=== PATIENT | female | born 1960 | race Caucasian/White ===

== ENCOUNTER 2019-04-16 16:29 | Outpatient (CLI) | payer OTHER, SELFPAY ==
--- NOTE | ~2019-04-16 | MM_ITS ---
EXAMINATION: MM screening [facility] BI w dev HISTORY: Screening mammogram, family history of breast cancer in her mother. TECHNIQUE: Craniocaudal and mediolateral oblique 3-D tomosynthesis images were obtained and synthetic 2-D images were generated. CAD analysis was submitted and interpreted. COMPARISON: 03/30/2018, 03/02/2017, 02/25/2016 BREAST PARENCHYMAL COMPOSITION: There are scattered areas of fibroglandular density. FINDINGS: There is stable focal asymmetry in the middle third of the upper left breast. There is no e vidence of suspicious mass, calcification, or architectural distortion to suggest malignancy in eithe r breast. There has been no suspicious interval change. IMPRESSION: 1. No mammographic evidence of malignancy. 2. Recommend routine screening mammography in one year. BI-RADS Category 2: Benign finding(s). Reviewed, dictated and finalized at location A. EL MANAGER
== END 2019-04-16 16:30 | disposition home or self-care (01) ==
LOC: ANHIMG 16:30
PROVIDERS: Visit Provider Obstetrics & Gynecology
DX: Z12.31 Encounter for screening mammogram for malignant neoplasm of breast (principal)
CPT/HCPCS: 77063; 77067

== ENCOUNTER 2019-06-11 08:24 | Outpatient (CLI) | payer OTHER, SELFPAY ==
[2019-06-11 08:50] LABS: Alanine Aminotransferase 16 U/L (4-35); Alkaline Phosphatase 62 U/L (38-126); Aspartate Amino Transferase 28 U/L (14-36); Bilirubin,Total 0.4 mg/dL (0.2-1.3); Blood Urea Nitrogen 13 mg/dL (7-17); Calcium 9.4 mg/dL (8.4-10.2); Carbon Dioxide 30 mmol/L (22-30); Chloride 106 mmol/L (98-107); Estimated Glomerular Filt Rate 51; Glucose 93 mg/dL (65-105); Potassium 4.2 mmol/L (3.4-5.0); Sodium 139 mmol/L (137-145)
== END 2019-06-11 08:25 | disposition home or self-care (01) ==
PROVIDERS: PCP Internal Medicine; Visit Provider Internal Medicine
DX: Z79.899 Other long term (current) drug therapy (principal)
CPT/HCPCS: 36415; 80053

== ENCOUNTER 2019-07-30 07:11 | Outpatient (CLI) | payer OTHER, SELFPAY ==
[2019-07-30 08:24] LABS: Free T4 Free Thyroxine 1.27 ng/mL (0.78-2.19)
[2019-08-01 04:56] LABS: Triiodothyronine T3 Free 2.9 pg/mL (2.3-4.2)
== END 2019-07-30 07:12 | disposition home or self-care (01) ==
PROVIDERS: Visit Provider Internal Medicine Endocrinology, Diabetes & Metabolism
DX: E03.9 Hypothyroidism, unspecified (principal)
CPT/HCPCS: 36415; 84439; 84443; 84481

== ENCOUNTER 2019-09-07 08:21 | Outpatient (CLI) | payer OTHER, SELFPAY ==
--- NOTE | ~2019-09-07 | XR_ITS ---
XR hip RT min 2V 09/07/2019 08:39 Indication: Right hip pain Procedure: 2 views right hip Comparison: 05/14/2018 Findings: There is persistent mild osteoarthritis of the right hip. No fracture or traumatic malalign ment. Sacral foramen are symmetric. Visualized pelvic structures are unremarkable. There is a transit ional L5 vertebra. Impression: 1: No acute bone or joint abnormality. 2: Mild osteoarthritis of the right hip. Reviewed, dictated and finalized at location A. Impression: 1: No acute bone or joint abnormality. 2: Mild osteoarthritis of the right hip.
== END 2019-09-07 08:22 | disposition home or self-care (01) ==
DX: M25.551 Pain in right hip (principal); M16.11 Unilateral primary osteoarthritis, right hip
CPT/HCPCS: 73502

== ENCOUNTER 2019-09-26 06:50 | Outpatient (CLI) | payer OTHER, SELFPAY ==
[2019-09-26 07:30] LABS: Hematocrit 36.8 % (37.0-47.0); Mean Corpuscular HGB Conc 32.6 g/dl (32-36); Mean Corpuscular Hemoglobin 24.6 pg (26-34); Mean Corpuscular Volume 75.4 fl (80-100); Mean Platelet Volume 10.4 fl (7.4-10.4); Platelet Count Result 251 k/mm3 (150-375); Red Blood Count 4.88 M/mm3 (4.2-5.4); Red Cell Distribution Width 14.7 % (11.5-14.5); White Blood Count 5.7 K/mm3 (4.5-10.0)
[2019-09-26 07:48] LABS: Alanine Aminotransferase 17 U/L (4-35); Albumin Level 4.2 g/dL (3.5-5.1); Alkaline Phosphatase 57 U/L (38-126); Aspartate Amino Transferase 30 U/L (14-36); Bilirubin,Total 0.2 mg/dL (0.2-1.3); Blood Urea Nitrogen 14 mg/dL (7-17); CRP 0.9 mg/dL (<1.0); Carbon Dioxide 25 mmol/L (22-30); Chloride 107 mmol/L (98-107); Estimated Glomerular Filt Rate 46; Glucose 97 mg/dL (65-105); Potassium 4.3 mmol/L (3.4-5.0); Sodium 138 mmol/L (137-145)
[2019-09-26 07:53] LABS: Complement C3 102 mg/dL (88-165)
[2019-09-26 07:53] LABS: Add Urine Microscopic? YES; Appearance Urine Clear (Clear); Bacteria Urine Trace /hpf; Bilirubin Urine Negative (Negative); Blood Urine Negative (Negative); Color Urine Straw (Yellow); Glucose Urine UA Negative (Negative); Ketones Urine Negative (Negative); Leukocyte Esterase Ur 3+ LEU/UL (Negative); Nitrate Urine Positive (Negative); Protein Urine Negative (Negative); RBC Urine 0-2 /hpf (0-2); Specific Grav Ur 1.011 (1.001-1.035); Squamous Epithelial Cell Urine Moderate /hpf (Few); Transitional Epi Cells Urine Rare /hpf (None Seen); Urobilinogen Urine Negative mg/dL (<2.0); WBC Urine 31-50 /hpf
[2019-10-02 09:09] LABS: ANA Cascade Screen Negative (Negative)
== END 2019-09-26 06:51 | disposition home or self-care (01) ==
PROVIDERS: Visit Provider Internal Medicine
DX: M19.90 Unspecified osteoarthritis, unspecified site (principal); M35.9 Systemic involvement of connective tissue, unspecified
CPT/HCPCS: 36415; 80053; 81001; 85027; 86038; 86140; 86160; 87077; 87086; 87088; 87186

== ENCOUNTER 2019-11-16 08:30 | Emergency (ER) | payer OTHER, SELFPAY ==
[2019-11-16 08:35] VITALS: BP 123/79; PULSE 77; RESP 18; TEMP 36.6; O2SAT 98
--- NOTE | 2019-11-16 09:00 | ED.GENADULT ---
HPI - General Adult General Chief complaint: Skin/Abscess/Foreign Body Stated complaint: hives Time Seen by Provider: 11/16/19 08:51 Source: patient Mode of arrival: ambulatory Limitations: no limitations History of Present Illness HPI narrative: Patient is a 58-year-old female who presents for evaluation of itching and hives to the lower abdomen, hands and back. Patient states that she noticed onset of symptoms approximately 7 AM this morning. Patient states she was carrying her cat outside to feed the cows for the morning, which are daily, normal activities for her. She reports she had some left-sided upper lip swelling, and some tingling in her ears. She denied any chest pain, shortness of breath, nausea, vomiting or diarrhea. Patient has history of allergic reactions in the past, has had unknown exposures and has not been diagnosed with any specific allergens. Patient states she has a history of anaphylaxis to bee stings and carries an EpiPen around for those. Patient states she is not on any bees or was not of animated by anything this morning. Patient did take a 25 mg p.o. Benadryl which greatly improved her symptoms. Patient denies any new soaps, lotions or detergents. No unusual foods this morning. Related Data Home Medications Medication Instructions Recorded Confirmed biotin 5,000 mcg sublingual tablet 5,000 mcg SUBLINGUAL DAILY 03/11/19 10/11/19 calcium carbonate 600 mg calcium 600 mg PO DAILY 03/11/19 10/11/19 (1,500 mg) tablet cholecalciferol (vitamin D3) PO 03/11/19 10/11/19 levothyroxine 75 mcg tablet 75 mcg PO DAILY 03/11/19 10/11/19 multivitamin 1 tablet PO DAILY 03/11/19 10/11/19 omeprazole 40 mg capsule,delayed 40 mg PO DAILY 03/11/19 10/11/19 release polyethylene glycol 3350 17 17 gm PO DAILY 03/11/19 10/11/19 gram/dose oral powder liothyronine 5 mcg tablet 5 mcg PO DAILY 06/21/19 10/11/19 Allergies Allergy/AdvReac Type Severity Reaction Status Date / Time codeine Allergy Unknown Itching Verified 06/21/19 09:08 morphine Allergy Unknown Itching Verified 06/21/19 09:08 tetracycline Allergy Unknown Vomiting Verified 06/21/19 09:08 Review of Systems Review of Systems: Narrative: CONSTITUTIONAL: Denies fever, chills EYES: Denies visual changes ENT: Denies rhinorrhea, congestion CARDIOVASCULAR: Denies chest pain, palpitations, or edema. RESPIRATORY: Denies cough or dyspnea. GASTROINTESTINAL: Denies abdominal pain, nausea, vomiting, or diarrhea. GENITOURINARY: Denies dysuria or hematuria. SKIN: Reports itching rash MUSCULOSKELETAL: Denies back pain, joint pain, or myalgia. NEUROLOGIC: Denies headache, numbness PMFSH Past Medical History Medical History Chronic pancreatitis Gallbladder disease Cydney's thyroiditis Hip pain, right (~2019) Primary osteoarthritis of hips, bilateral Restless legs Sciatica Thyroid disease Trigger thumb of both thumbs Undifferentiated connective tissue disease (~2017) Surgical History Surgical History Delivery by section History of carpal tunnel release History of ERCP Hx of cholecystectomy Family History Family History Father CAD (coronary artery disease) Dementia Hx of CABG Mother Breast cancer Alzheimers disease Grandparent Alzheimers disease Sibling Mitral stenosis Social History Social History Smoking status: Never smoker Alcohol intake: current Exam Narrative: Exam Narrative: GENERAL: Awake, alert, conversant HEAD: Normocephalic, atraumatic. EYES: PERRLA and EOMI. ENT: Nares clear, no rhinorrhea or epistaxis. Mucous membranes moist. No lip edema. Uvula is midline. No trismus. No facial edema. NECK: Supple. CHEST: No respiratory distress, breathing even and non labored, no wheezing, no tachypnea
[2019-11-16] MEDS: methylPREDNISolone SOD SUCC 125 MG VIAL IV PUSH (09:14)
[2019-11-16] MEDS: FAMOTIDINE 20 MG/2 ML VIAL IV PUSH (09:17)
[2019-11-16] MEDS: diphenhydrAMINE HCl INJ 50 MG/ML VIAL 25 MG IV PUSH (09:22)
[2019-11-16 09:30] VITALS: BP 123/79; PULSE 63; RESP 16; O2SAT 98
[2019-11-16 10:43] VITALS: BP 131/95; PULSE 73; RESP 16; O2SAT 99
== END 2019-11-16 10:43 | disposition home or self-care (01) ==
PROVIDERS: Emergency Provider Emergency Medicine
DX: T78.40XA Allergy, unspecified, initial encounter (principal); E06.3 Autoimmune thyroiditis; M16.0 Bilateral primary osteoarthritis of hip; G25.81 Restless legs syndrome; K86.1 Other chronic pancreatitis
CPT/HCPCS: 96374; 96375; 99284; J1200; J2930

== ENCOUNTER 2020-02-05 07:09 | Outpatient (CLI) | payer OTHER, SELFPAY ==
[2020-02-05 07:34] LABS: Hematocrit 42.6 % (37.0-47.0); Hemoglobin 14.3 g/dL (12.0-15.0); Mean Corpuscular HGB Conc 33.6 g/dl (32-36); Mean Corpuscular Hemoglobin 27.6 pg (26-34); Mean Corpuscular Volume 82.1 fl (80-100); Mean Platelet Volume 10.2 fl (7.4-10.4); Platelet Count Result 254 k/mm3 (150-375); Red Blood Count 5.19 M/mm3 (4.2-5.4); Red Cell Distribution Width 13.1 % (11.5-14.5); White Blood Count 6.6 K/mm3 (4.5-10.0)
[2020-02-05 07:37] LABS: Add Urine Microscopic? YES; Appearance Urine Clear (Clear); Bacteria Urine Trace /hpf; Bilirubin Urine Negative (Negative); Blood Urine Negative (Negative); Color Urine Yellow (Yellow); Glucose Urine UA Negative (Negative); Ketones Urine Negative (Negative); Leukocyte Esterase Ur Trace LEU/UL (Negative); Nitrate Urine Negative (Negative); Protein Urine Negative (Negative); RBC Urine 0-2 /hpf (0-2); Specific Grav Ur 1.011 (1.001-1.035); Squamous Epithelial Cell Urine Many /hpf (Few); Urobilinogen Urine Negative mg/dL (<2.0); WBC Urine 0-3 /hpf
[2020-02-05 07:51] LABS: Mucus Urine Rare /lpf
[2020-02-05 08:17] LABS: Erythrocyte Sedimentation Rate 17 mm/hr (0-20)
[2020-02-05 08:59] LABS: Alanine Aminotransferase 16 U/L (4-35); Albumin Level 4.1 g/dL (3.5-5.1); Alkaline Phosphatase 59 U/L (38-126); Anion Gap 4 mmol/L (8-16); Aspartate Amino Transferase 31 U/L (14-36); Bilirubin,Total 0.6 mg/dL (0.2-1.3); Blood Urea Nitrogen 15 mg/dL (7-17); CRP 0.6 mg/dL (<1.0); Calcium 9.4 mg/dL (8.4-10.2); Carbon Dioxide 33 mmol/L (22-30); Chloride 102 mmol/L (98-107); Estimated Glomerular Filt Rate 51; Glucose 92 mg/dL (65-105); Sodium 139 mmol/L (137-145)
[2020-02-05 09:39] LABS: Potassium 4.4 mmol/L (3.4-5.0)
== END 2020-02-05 07:10 | disposition home or self-care (01) ==
PROVIDERS: Visit Provider Internal Medicine
DX: M35.9 Systemic involvement of connective tissue, unspecified (principal); M19.90 Unspecified osteoarthritis, unspecified site
CPT/HCPCS: 36415; 80053; 81001; 85027; 85652; 86140

== ENCOUNTER 2020-04-08 15:06 | Outpatient (CLI) | payer OTHER, SELFPAY ==
[2020-04-08 15:49] LABS: Albumin Level 4.1 g/dL (3.5-5.1); Anion Gap 6 mmol/L (8-16); Blood Urea Nitrogen 24 mg/dL (7-17); Calcium 9.5 mg/dL (8.4-10.2); Carbon Dioxide 29 mmol/L (22-30); Chloride 102 mmol/L (98-107); Estimated Glomerular Filt Rate 51; Glucose 107 mg/dL (65-105); Phosphorus 4.5 mg/dL (2.5-4.5); Potassium 3.8 mmol/L (3.4-5.0); Sodium 137 mmol/L (137-145)
== END 2020-04-08 15:07 | disposition home or self-care (01) ==
LOC: ANHLAB 15:08
PROVIDERS: PCP Nurse Practitioner Adult Health; Visit Provider Nurse Practitioner Adult Health
DX: R94.4 Abnormal results of kidney function studies (principal)
CPT/HCPCS: 36415; 80069

== ENCOUNTER 2020-05-21 15:21 | Outpatient (CLI) | payer OTHER, SELFPAY ==
--- NOTE | ~2020-05-21 | MM_ITS ---
EXAMINATION: MM screening azar BI w dev HISTORY: Screening TECHNIQUE: Craniocaudal and mediolateral oblique 3-D tomosynthesis images were obtained and synthetic 2-D images were generated. CAD analysis was submitted and interpreted. COMPARISON: Comparison to multiple prior studies sequentially, with oldest reviewed study dated 06/2013. BREAST PARENCHYMAL COMPOSITION: There are scattered areas of fibroglandular density. FINDINGS: There is no evidence of suspicious mass, calcification, or architectural distortion to sugg est malignancy in either breast. There has been no suspicious interval change. IMPRESSION: 1. No mammographic evidence of malignancy. 2. Recommend routine screening mammography in one year. BI-RADS Category 1: Negative Reviewed, dictated and finalized at location A. ELAIN MIXER
== END 2020-05-21 15:22 | disposition home or self-care (01) ==
LOC: ANHIMG 15:23
PROVIDERS: PCP Nurse Practitioner Adult Health; Visit Provider Nurse Practitioner Adult Health
DX: Z12.31 Encounter for screening mammogram for malignant neoplasm of breast (principal)
CPT/HCPCS: 77063; 77067

== ENCOUNTER 2020-06-25 15:39 | Outpatient (CLI) | payer OTHER, SELFPAY ==
--- NOTE | ~2020-06-25 | MR_ITS ---
EXAMINATION: MR lumbar spine [facility] EXAM DATE: 06/25/2020 16:47 INDICATION: Lumbar spondylosis. Low back pain, right hip pain. TECHNIQUE: Multi-sequential, multiplanar MR images of the lumbar spine were obtained without contrast . Sagittal T1, T2, T2 fat saturation images. Axial T2 weighted images. There is no prior study for comparison. FINDINGS: There is mild to moderate disc disease at T10-L1 disc spaces, mild disc disease of all lumb ar levels. The vertebral bodies are aligned in the AP dimension. Vertebral body heights are maintaine d. The conus medullaris terminates at the L1/2 level and has normal signal intensity and morphology. There are no suspicious marrow signal abnormalities. Multiple regions of right renal cortical scarri ng from prior infections or infarctions. Paraspinal soft tissue is unremarkable. Level by level evaluation: T12-L1: Disc does not extend beyond the endplate margin. Facet arthropathy: Mild bilateral. Neural foraminal stenosis: No stenosis. Central canal stenosis: No stenosis. L1-L2: There is a mild diffuse disc bulge. Facet arthropathy: Mild to moderate bilateral. Neural foraminal stenosis: No stenosis. Central canal stenosis: No stenosis. L2-L3: Disc does not extend beyond the endplate margin. Facet arthropathy: Mild to moderate bilateral. Neural foraminal stenosis: No stenosis. Central canal stenosis: No stenosis. L3-L4: There is a mild diffuse disc bulge. Facet arthropathy: Moderate bilateral. Neural foraminal stenosis: Mild right. Central canal stenosis: Mild. L4-L5: There is a mild to moderate diffuse disc bulge. Facet arthropathy: Severe right, moderate to severe left. Ligamentum flavum enlargement. Neural foraminal stenosis: Moderate right, mild to moderate left. Central canal stenosis: Moderate. L5-S1: There is a mild diffuse disc bulge. Facet arthropathy: Severe left, moderate to severe right. Neural foraminal stenosis: Mild to moderate left, mild right. Central canal stenosis: Mild. IMPRESSION: 1. L4-5 advanced facet arthropathy, disc bulge causing moderate central canal and right neural sary inal stenosis. 2. Less spondylosis other levels. Reviewed, dictated and finalized at location A. IMPRESSION: 1. L4-5 advanced facet arthropathy, disc bulge causing moderate central canal and right neural foraminal stenosis. 2. Less spondylosis other levels.
== END 2020-06-25 15:40 | disposition home or self-care (01) ==
PROVIDERS: PCP Nurse Practitioner Adult Health; Visit Provider Nurse Practitioner Adult Health
DX: M47.896 Other spondylosis, lumbar region (principal)
CPT/HCPCS: 72148

== ENCOUNTER 2020-10-09 07:22 | Outpatient (CLI) | payer OTHER, SELFPAY ==
[2020-10-09 08:14] LABS: Basophils Percent Auto 0.5 % (0.2-1.2); Eosinophils Absolute Auto 0.1 K/mm3 (0-0.3); Eosinophils Percent Auto 1.9 % (0-4.4); Hematocrit 44.2 % (37.0-47.0); Hemoglobin 14.6 g/dL (12.0-15.0); Immature Granulocyte Absolute 0.02 K/mm3 (0.00-0.031); Immature Granulocyte Percent A 0.3 % (0-0.5); Lymphocytes Absolute Auto 2.43 K/mm3 (0.9-3.2); Mean Corpuscular Hemoglobin 27.4 pg (26-34); Mean Corpuscular Volume 82.9 fl (80-100); Mean Platelet Volume 10.3 fl (7.4-10.4); Monocytes Absolute Auto 0.5 K/mm3 (0.1-0.6); Monocytes Percent Auto 6.5 % (2.6-8.5); Neutrophils Absolute Auto 4.3 K/mm3 (1.3-6.7); Neutrophils Percent Auto 57.8 % (45.5-73.1); Platelet Count Result 266 k/mm3 (150-375); Red Blood Count 5.33 M/mm3 (4.2-5.4); Red Cell Distribution Width 13.5 % (11.5-14.5); White Blood Count 7.4 K/mm3 (4.5-10.0)
[2020-10-09 08:15] LABS: Alanine Aminotransferase 17 U/L (4-35); Albumin Level 4.5 g/dL (3.5-5.1); Alkaline Phosphatase 74 U/L (38-126); Anion Gap 8 mmol/L (8-16); Aspartate Amino Transferase 30 U/L (14-36); Bilirubin,Total 0.6 mg/dL (0.2-1.3); Blood Urea Nitrogen 15 mg/dL (7-17); Calcium 9.8 mg/dL (8.4-10.2); Carbon Dioxide 25 mmol/L (22-30); Chloride 105 mmol/L (98-107); Cholesterol 221 mg/dL (0-200); Estimated Glomerular Filt Rate 51; Glucose 100 mg/dL (65-110); HDL Direct 82 mg/dL; Magnesium 1.9 mg/dL (1.6-2.3); Potassium 4.4 mmol/L (3.4-5.0); Sodium 138 mmol/L (137-145); Triglycerides 82 mg/dL (<150)
[2020-10-09 08:25] LABS: LDL Cholesterol Direct 105 mg/dL
[2020-10-09 12:35] LABS: Folic Acid > 20.0 ng/mL (2.76->20)
== END 2020-10-09 07:23 | disposition home or self-care (01) ==
LOC: ANHLAB 07:24
PROVIDERS: PCP Nurse Practitioner Adult Health; Visit Provider Nurse Practitioner Adult Health
DX: E06.3 Autoimmune thyroiditis (principal); Z13.9 Encounter for screening, unspecified
CPT/HCPCS: 36415; 80053; 80061; 82607; 82746; 83735; 84443; 85025

== ENCOUNTER 2020-10-21 15:28 | Outpatient (CLI) | payer OTHER, SELFPAY ==
--- NOTE | ~2020-10-21 | US_ITS ---
EXAMINATION: US thyroid DATE: 10/21/2020 15:59 INDICATION: Nontoxic single thyroid nodule. TECHNIQUE: Multiple ultrasound images of the thyroid were obtained. COMPARISON: Ultrasound 04/08/2019, 03/05/2015 FINDINGS: The right thyroid lobe measures 5.0 x 1.5 x 1.6 cm. The left thyroid lobe measures 4.5 x 1.8 x 1.5 c m. In the right thyroid lobe, there is a 7 mm solid, hypoechoic, [id number] nodule with smooth margin without echogenic foci (TI-RADS TR4). In the right thyroid lobe, there is a 4 mm nodule. In th e left thyroid lobe, there is a 5 mm solid, hypoechoic, [id number] nodule with smooth margin wit hout echogenic foci (TR4). IMPRESSION: 1. Small thyroid nodules, likely not clinically significant. No follow-up is needed. Reviewed, dictated and finalized at location A. IMPRESSION: 1. Small thyroid nodules, likely not clinically significant. No follow-up is ne eded.
== END 2020-10-21 15:29 | disposition home or self-care (01) ==
LOC: ANHIMG 15:29
PROVIDERS: PCP Nurse Practitioner Adult Health; Visit Provider Nurse Practitioner Adult Health
DX: E04.2 Nontoxic multinodular goiter (principal)
CPT/HCPCS: 76536

== ENCOUNTER → 2020-11-06 01:59 | Outpatient (CLI) | payer OTHER, SELFPAY ==
[2020-11-06 20:11] LABS: SARS-CoV-2 RNA PCR Negative
== END ==
PROVIDERS: PCP Nurse Practitioner Adult Health; Visit Provider Nurse Practitioner Adult Health
DX: J02.9 Acute pharyngitis, unspecified (principal); Z20.822 Contact with and (suspected) exposure to COVID-19
CPT/HCPCS: C9803; U0003; U0005

== ENCOUNTER 2021-04-20 06:43 | Outpatient (CLI) | payer OTHER, SELFPAY ==
[2021-04-20 08:22] LABS: Alanine Aminotransferase 21 U/L (4-35); Albumin Level 4.2 g/dL (3.5-5.1); Alkaline Phosphatase 79 U/L (38-126); Anion Gap 6 mmol/L (8-16); Aspartate Amino Transferase 32 U/L (14-36); Bilirubin,Total 0.4 mg/dL (0.2-1.3); Blood Urea Nitrogen 17 mg/dL (7-17); Calcium 9.8 mg/dL (8.4-10.2); Carbon Dioxide 26 mmol/L (22-30); Chloride 105 mmol/L (98-107); Cholesterol 224 mg/dL (0-200); Estimated Glomerular Filt Rate 51; Glucose 98 mg/dL (65-110); HDL Direct 52 mg/dL; Magnesium 1.9 mg/dL (1.6-2.3); Sodium 137 mmol/L (137-145); Triglycerides 116 mg/dL (<150)
[2021-04-20 08:33] LABS: LDL Cholesterol Direct 128 mg/dL
[2021-04-20 08:34] LABS: Iron 74 ug/dL (37-170)
[2021-04-20 08:44] LABS: Percent Iron Saturation 24 % (20-50)
[2021-04-20 08:51] LABS: Basophils Absolute Auto 0.1 K/mm3 (0.0-0.1); Basophils Percent Auto 0.9 % (0.2-1.2); Eosinophils Absolute Auto 0.2 K/mm3 (0-0.3); Eosinophils Percent Auto 2.7 % (0-4.4); Hematocrit 39.3 % (37.0-47.0); Hemoglobin 13.4 g/dL (12.0-15.0); Immature Granulocyte Absolute 0.01 K/mm3 (0.00-0.031); Immature Granulocyte Percent A 0.2 % (0-0.5); Lymphocytes Absolute Auto 1.81 K/mm3 (0.9-3.2); Mean Corpuscular HGB Conc 34.1 g/dl (32-36); Mean Corpuscular Hemoglobin 27.2 pg (26-34); Mean Corpuscular Volume 79.7 fl (80-100); Mean Platelet Volume 10.7 fl (7.4-10.4); Monocytes Absolute Auto 0.4 K/mm3 (0.1-0.6); Monocytes Percent Auto 7.8 % (2.6-8.5); Neutrophils Absolute Auto 3.2 K/mm3 (1.3-6.7); Neutrophils Percent Auto 56.4 % (45.5-73.1); Platelet Count Result 285 k/mm3 (150-375); Red Blood Count 4.93 M/mm3 (4.2-5.4); Red Cell Distribution Width 13.5 % (11.5-14.5); White Blood Count 5.7 K/mm3 (4.5-10.0)
[2021-04-20 08:52] LABS: Thyroid Stimulating Hormone 0.543 uIU/mL (0.465-4.680)
[2021-04-23 06:40] LABS: Triiodothyronine T3 Free 3.1 pg/mL (2.3-4.2)
== END 2021-04-20 06:44 | disposition home or self-care (01) ==
LOC: ANHLAB 06:47
PROVIDERS: PCP Nurse Practitioner Adult Health; Visit Provider Nurse Practitioner Adult Health
DX: E06.3 Autoimmune thyroiditis (principal); G25.81 Restless legs syndrome; Z86.2 Personal history of diseases of the blood and blood-forming organs and certain disorders involving the immune mechanism
CPT/HCPCS: 36415; 80053; 80061; 82728; 83540; 83550; 83735; 84439; 84443; 84481; 85025

== ENCOUNTER 2021-07-27 15:09 | Outpatient (CLI) | payer OTHER, SELFPAY ==
--- NOTE | ~2021-07-27 | MM_ITS ---
EXAMINATION: MM screening [facility] BI w dev HISTORY: Screening TECHNIQUE: Craniocaudal and mediolateral oblique 3-D tomosynthesis images were obtained and synthetic 2-D images were generated. CAD analysis was submitted and interpreted. COMPARISON: Comparison to multiple prior studies sequentially, with oldest reviewed study dated 01/19. BREAST PARENCHYMAL COMPOSITION: There are scattered areas of fibroglandular density. FINDINGS: There is no evidence of suspicious mass, calcification, or architectural distortion to sugg est malignancy in either breast. There has been no suspicious interval change. IMPRESSION: 1. No mammographic evidence of malignancy. 2. Recommend routine screening mammography in one year. BI-RADS Category 1: Negative Reviewed, dictated and finalized at location A.
== END 2021-07-27 15:10 | disposition home or self-care (01) ==
PROVIDERS: PCP Nurse Practitioner Adult Health; Visit Provider Nurse Practitioner Adult Health
DX: Z12.31 Encounter for screening mammogram for malignant neoplasm of breast (principal)
CPT/HCPCS: 77063; 77067

== ENCOUNTER 2022-02-19 08:21 | Outpatient (CLI) | payer OTHER, SELFPAY ==
[2022-02-19 09:04] LABS: Basophils Absolute Auto 0.1 K/mm3 (0.0-0.1); Basophils Percent Auto 0.8 % (0.2-1.2); Eosinophils Absolute Auto 0.1 K/mm3 (0-0.3); Eosinophils Percent Auto 1.8 % (0-4.4); Hematocrit 39.7 % (37.0-47.0); Hemoglobin 13.3 g/dL (12.0-15.0); Immature Granulocyte Absolute 0.02 K/mm3 (0.00-0.031); Immature Granulocyte Percent A 0.3 % (0-0.5); Lymphocytes Absolute Auto 2.45 K/mm3 (0.9-3.2); Mean Corpuscular HGB Conc 33.5 g/dl (32-36); Mean Corpuscular Hemoglobin 26.3 pg (26-34); Mean Corpuscular Volume 78.6 fl (80-100); Mean Platelet Volume 10.6 fl (7.4-10.4); Monocytes Absolute Auto 0.4 K/mm3 (0.1-0.6); Monocytes Percent Auto 6.8 % (2.6-8.5); Neutrophils Absolute Auto 3.2 K/mm3 (1.3-6.7); Neutrophils Percent Auto 51.3 % (45.5-73.1); Platelet Count Result 252 k/mm3 (150-375); Red Blood Count 5.05 M/mm3 (4.2-5.4); Red Cell Distribution Width 13.8 % (11.5-14.5); White Blood Count 6.3 K/mm3 (4.5-10.0)
[2022-02-19 09:29] LABS: Alanine Aminotransferase 22 U/L (6-35); Albumin Level 4.2 g/dL (3.5-5.1); Alkaline Phosphatase 87 U/L (38-126); Anion Gap 6 mmol/L (8-16); Aspartate Amino Transferase 31 U/L (14-36); Bilirubin,Total 0.5 mg/dL (0.2-1.3); Blood Urea Nitrogen 21 mg/dL (7-17); Calcium 9.2 mg/dL (8.4-10.2); Carbon Dioxide 28 mmol/L (22-30); Chloride 104 mmol/L (98-107); Cholesterol 219 mg/dL (0-200); Estimated Glomerular Filt Rate 57; Glucose 98 mg/dL (65-110); HDL Direct 61 mg/dL; Potassium 4.1 mmol/L (3.4-5.0); Sodium 138 mmol/L (137-145); Triglycerides 69 mg/dL (<150)
[2022-02-19 09:38] LABS: LDL Cholesterol Direct 120 mg/dL
[2022-02-19 09:57] LABS: Thyroid Stimulating Hormone 0.289 uIU/mL (0.465-4.680)
[2022-02-19 10:37] LABS: Folic Acid > 20.0 ng/mL (2.76->20)
== END 2022-02-19 08:22 | disposition home or self-care (01) ==
LOC: ANHLAB 08:25
PROVIDERS: PCP Nurse Practitioner Adult Health; Visit Provider Nurse Practitioner Adult Health
DX: Z13.9 Encounter for screening, unspecified (principal); E06.3 Autoimmune thyroiditis
CPT/HCPCS: 36415; 80053; 80061; 82607; 82746; 84443; 85025

== ENCOUNTER 2022-04-25 10:30 | Outpatient (CLI) | payer OTHER, SELFPAY ==
--- NOTE | 2022-04-25 10:43 | EST_ITS ---
Patient Info Name: Georgina Marin Age: 61 years : 1960 Gender: Female Ht: 63 in Wt: 175 lbs BSA: 1.91 m2 HR: 55 bpm BP: 122 / 75 mmHg Heart Rhythm: Sinus Rhythm Exam Date: 04/25/2022 11:14 AM Exam Location: [facility] Stress Patient Status: Outpatient Admit Date: 04/25/2022 Staff Ordering Physician: Kady Wade MD Attending Provider: Kady Wade MD Exercise Technologist: Jennifer Treviño CT Exercise Physician: Dino Gordon DO Exam Type: CA stress test treadmill Study Info Indications R94.31 - Abnormal electrocardiogram ECG EKG A treadmill exercise stress test was performed. Summary 1. 1. Negative Kei exercise stress test for ischemic ST changes by ECG criteria. 2. 2. Good functional capacity, achieving 9.5 METs of workload. 3. 3. Appropriate HR response to exercise. 4. 4. Appropriate HR recovery at 1 minute post exercise. 5. 5. No imaging with stress testing. 6. 6. Patient informed of the above results. Protocol: Kei Stress ECG Details Stage: REST Duration (min): 1 min : 3 sec Speed (mph): 0.0 Grade (%): 0 HR (bpm): 56 SBP (mmHg): 122 DBP (mmHg): 75 METS: --- Stage: REST Duration (min): 14 min : 21 sec Speed (mph): 0.0 Grade (%): 0 HR (bpm): 60 SBP (mmHg): 122 DBP (mmHg): 75 METS: --- Stage: STAGE 1 Duration (min): 1 min : 0 sec Speed (mph): 1.7 Grade (%): 10 HR (bpm): 85 SBP (mmHg): 122 DBP (mmHg): 75 METS: --- Stage: STAGE 1 Duration (min): 2 min : 0 sec Speed (mph): 1.7 Grade (%): 10 HR (bpm): 94 SBP (mmHg): 122 DBP (mmHg): 75 METS: --- Stage: STAGE 1 Duration (min): 3 min : 0 sec Speed (mph): 1.7 Grade (%): 10 HR (bpm): 97 SBP (mmHg): 131 DBP (mmHg): 58 METS: --- Stage: STAGE 2 Duration (min): 1 min : 0 sec Speed (mph): 2.5 Grade (%): 12 HR (bpm): 113 SBP (mmHg): 131 DBP (mmHg): 58 METS: --- Stage: STAGE 2 Duration (min): 2 min : 0 sec Speed (mph): 2.5 Grade (%): 12 HR (bpm): 122 SBP (mmHg): 152 DBP (mmHg): 58 METS: --- Stage: STAGE 2 Duration (min): 3 min : 0 sec Speed (mph): 2.5 Grade (%): 12 HR (bpm): 131 SBP (mmHg): 152 DBP (mmHg): 58 METS: --- Stage: STAGE 3 Duration (min): 1 min : 0 sec Speed (mph): 3.4 Grade (%): 14 HR (bpm): 132 SBP (mmHg): 152 DBP (mmHg): 58 METS: --- Stage: STAGE 3 Duration (min): 1 min : 28 sec Speed (mph): 3.4 Grade (%): 14 HR (bpm): 146 SBP (mmHg): 152 DBP (mmHg): 58 METS: --- Stage: RECOVERY Duration (min): 0 min : 31 sec Speed (mph): 0.0 Grade (%): 0 HR (bpm): 132 SBP (mmHg): 139 DBP (mmHg): 70 METS: --- Stage: RECOVERY Duration (min): 1 min : 31 sec Speed (mph): 0.0 Grade (%): 0 HR (bpm): 100 SBP (mmHg): 139 DBP (mmHg): 70 METS: ---
== END 2022-04-25 10:31 | disposition home or self-care (01) ==
LOC: ANHCARD 10:31
PROVIDERS: PCP Family Medicine; Visit Provider Family Medicine
DX: R94.31 Abnormal electrocardiogram [ECG] [EKG] (principal)
CPT/HCPCS: 93017

== ENCOUNTER 2022-06-08 14:12 | Outpatient (CLI) | payer OTHER, SELFPAY ==
[2022-06-08 14:32] LABS: Hematocrit 37.3 % (37.0-47.0); Hemoglobin 12.7 g/dL (12.0-15.0); Mean Corpuscular Hemoglobin 27.9 pg (26-34); Mean Platelet Volume 10.1 fl (7.4-10.4); Platelet Count Result 253 k/mm3 (150-375); Red Blood Count 4.55 M/mm3 (4.2-5.4); Red Cell Distribution Width 13.5 % (11.5-14.5); White Blood Count 7.1 K/mm3 (4.5-10.0)
[2022-06-08 14:40] LABS: Alanine Aminotransferase 22 U/L (6-35); Albumin Level 4.4 g/dL (3.5-5.1); Alkaline Phosphatase 82 U/L (38-126); Amylase 41 U/L (30-110); Anion Gap 5 mmol/L (8-16); Aspartate Amino Transferase 29 U/L (14-36); Bilirubin,Total 0.4 mg/dL (0.2-1.3); Blood Urea Nitrogen 26 mg/dL (7-17); Calcium 9.3 mg/dL (8.4-10.2); Carbon Dioxide 29 mmol/L (22-30); Chloride 105 mmol/L (98-107); Estimated Glomerular Filt Rate 51; Glucose 101 mg/dL (65-110); Lipase 22 U/L (23-300); Sodium 139 mmol/L (137-145)
== END 2022-06-08 14:13 | disposition home or self-care (01) ==
LOC: ANHLAB 14:15
PROVIDERS: PCP Family Medicine; Visit Provider Nurse Practitioner
DX: K86.1 Other chronic pancreatitis (principal); R10.11 Right upper quadrant pain
CPT/HCPCS: 36415; 80053; 82150; 83690; 85027

== ENCOUNTER 2022-06-17 14:20 | Outpatient (CLI) | payer OTHER, SELFPAY ==
--- NOTE | ~2022-06-17 | CT_ITS ---
EXAMINATION: CT abdomen pelvis w con DATE: 06/17/2022 14:56 INDICATION: Right upper quadrant abdominal pain for 2 months. TECHNIQUE: Computed tomography (CT) of the abdomen and pelvis was performed with 100 CC Omnipaque 350 intravenous contrast. Automated exposure control and iterative reconstruction technique were employe d. Exam dose: 550.04 mGy-cm total exam DLP. COMPARISON: 03/30/2018 CT abdomen pelvis FINDINGS: The lung bases are clear. Normal heart size. No pericardial or pleural effusion. Small sliding hiatal hernia. Status post cholecystectomy. There is pneumobilia. No hepatic, splenic, and adrenal or renal space-occupying mass lesion. Bilateral renal scarring consi stent with bilateral chronic pyelonephritis. The pancreas is largely atrophic or absent, stable since 03/30/2018. Normal caliber of the abdominal aorta. No intraperitoneal or retroperitoneal or pelvic mass lesion or adenopathy or ascites. Uterus, adnexal areas and urinary bladder is unremarkable. Normal appendix. There is a prominent of fecal material in the rectum and colon. No bowel obstruction is detected. No suspicious osteolytic or osteoblastic lesions. Degenerative changes of the thoracic and lumbar spi ne and hips. IMPRESSION: Normal appendix Prominent amount of fecal material in colon and rectum; no bowel obstruction or free air Small sliding hiatal hernia Status post cholecystectomy, with pneumobilia Bilateral chronic pyelonephritis Severe pancreatic atrophy Reviewed, dictated and finalized at Location A. Reviewed, dictated and finalized at location B.
== END 2022-06-17 14:21 | disposition home or self-care (01) ==
PROVIDERS: PCP Family Medicine; Visit Provider Nurse Practitioner
DX: R10.11 Right upper quadrant pain (principal); K86.1 Other chronic pancreatitis; K44.9 Diaphragmatic hernia without obstruction or gangrene; Z90.49 Acquired absence of other specified parts of digestive tract; N11.8 Other chronic tubulo-interstitial nephritis
CPT/HCPCS: 74177; Q9967

== ENCOUNTER 2022-08-17 14:38 | Outpatient (CLI) | payer OTHER, SELFPAY ==
[2022-08-17 16:07] LABS: Thyroid Stimulating Hormone Reflex 0.392 uIU/mL (0.465-4.68)
[2022-08-17 17:07] LABS: Free T4 Free Thyroxine Reflex 1.35 ng/dL (0.78-2.19)
[2022-08-17 20:54] LABS: Total Triiodothyronine (T3) 1.33 NG/ML (0.97-1.69)
== END 2022-08-17 14:39 | disposition home or self-care (01) ==
LOC: ANHLAB 14:40
PROVIDERS: PCP Family Medicine; Visit Provider Physician Assistant
DX: E06.3 Autoimmune thyroiditis (principal)
CPT/HCPCS: 36415; 84439; 84443; 84480

== ENCOUNTER 2022-10-03 13:47 | Outpatient (CLI) | payer OTHER, SELFPAY ==
[2022-10-03 14:31] LABS: Alanine Aminotransferase 25 U/L (6-35); Albumin Level 4.2 g/dL (3.5-5.1); Alkaline Phosphatase 79 U/L (38-126); Anion Gap 5 mmol/L (8-16); Aspartate Amino Transferase 44 U/L (14-36); Bilirubin,Total 0.3 mg/dL (0.2-1.3); Blood Urea Nitrogen 17 mg/dL (7-17); Calcium 9.4 mg/dL (8.4-10.2); Carbon Dioxide 31 mmol/L (22-30); Chloride 101 mmol/L (98-107); Estimated Glomerular Filt Rate 51; Glucose 95 mg/dL (65-110); Potassium 3.7 mmol/L (3.4-5.0); Sodium 137 mmol/L (137-145)
[2022-10-03 18:45] LABS: Thyroid Stimulating Hormone Reflex 0.534 uIU/mL (0.465-4.68)
== END 2022-10-03 13:48 | disposition home or self-care (01) ==
PROVIDERS: PCP Family Medicine; Visit Provider Physician Assistant
DX: N11.9 Chronic tubulo-interstitial nephritis, unspecified (principal); E06.3 Autoimmune thyroiditis
CPT/HCPCS: 36415; 80053; 84443

== ENCOUNTER 2022-10-13 14:48 | Outpatient (CLI) | payer OTHER, SELFPAY ==
--- NOTE | ~2022-10-13 | MM_ITS ---
EXAMINATION: MM screening azar BI w dev HISTORY: Screening mammogram, family history of breast cancer in her mother. TECHNIQUE: Craniocaudal and mediolateral oblique 3-D tomosynthesis images were obtained and synthetic 2-D images were generated. CAD analysis was submitted and interpreted. COMPARISON: 07/27/2021, 05/21/2020, 04/16/2019 BREAST PARENCHYMAL COMPOSITION: There are scattered areas of fibroglandular density. FINDINGS: No suspicious mass, calcification, or architectural distortion are identified in either rose marie ast to suggest malignancy. There has been no suspicious interval change. IMPRESSION: 1. No mammographic evidence of malignancy. 2. Recommend routine screening mammography in one year. BI-RADS Category 1: Negative Reviewed, dictated and finalized at location A.
== END 2022-10-13 14:49 | disposition home or self-care (01) ==
PROVIDERS: PCP Family Medicine; Visit Provider Physician Assistant
DX: Z12.31 Encounter for screening mammogram for malignant neoplasm of breast (principal)
CPT/HCPCS: 77063; 77067

== ENCOUNTER 2022-10-18 15:34 | Outpatient (CLI) | payer OTHER, SELFPAY ==
[2022-10-18 15:56] LABS: Appearance Urine Clear (Clear); Bacteria Urine None Seen /hpf; Bilirubin Urine Negative (Negative); Blood Urine Trace (Negative); Color Urine Yellow (Yellow); Glucose Urine UA Negative (Negative); Ketones Urine Negative (Negative); Leukocyte Esterase Ur 1+ LEU/UL (Negative); Nitrate Urine Negative (Negative); Non Pathogenic Casts 0-2; Protein Urine Negative (Negative); RBC Urine 0-2 /hpf (0-2); Specific Grav Ur 1.009 (1.001-1.035); Squamous Epithelial Cell Urine None seen /hpf (Few); Urobilinogen Urine 0.2 mg/dL (<2.0)
[2022-10-18 16:18] LABS: Add Urine Microscopic? YES
== END 2022-10-18 15:35 | disposition home or self-care (01) ==
PROVIDERS: PCP Family Medicine; Visit Provider Physician Assistant
DX: R82.90 Unspecified abnormal findings in urine (principal)
CPT/HCPCS: 81001; 87077; 87086; 87186

== ENCOUNTER 2022-11-17 15:45 | Outpatient (CLI) | payer OTHER, SELFPAY ==
[2022-11-17 20:24] LABS: Hemoglobin A1C 5.9 % (<5.7)
== END 2022-11-17 15:46 | disposition home or self-care (01) ==
LOC: ANHLAB 15:48
PROVIDERS: PCP Family Medicine; Visit Provider Nurse Practitioner Adult Health
DX: Z13.1 Encounter for screening for diabetes mellitus (principal)
CPT/HCPCS: 36415; 83036

== ENCOUNTER 2022-12-16 14:44 | Outpatient (CLI) | payer OTHER, SELFPAY ==
--- NOTE | ~2022-12-16 | US_ITS ---
EXAMINATION: US retroperitoneal comp DATE: 12/16/2022 15:48 INDICATION: Pyelonephritis TECHNIQUE: Multiple grayscale and Doppler ultrasound images of the kidneys were obtained. COMPARISON: CT, 06/17/2022 FINDINGS: The right kidney measures 9.4 x 5.7 x 5.3 cm. The left kidney measures 9.6 x 5.0 x 5.5 cm. The kidneys demonstrate normal parenchymal echogenicity. There are multiple areas of cortical scarrin g in the kidneys. There is no hydronephrosis. The bladder is normal in appearance. There are 277 cc o f retained urine postvoiding. IMPRESSION: 1. Multiple areas of cortical scarring in the mildly atrophic, but otherwise normal-appearing, kidney s. 2. Urinary retention. Reviewed, dictated and finalized at location F. IMPRESSION: 1. Multiple areas of cortical scarring in the mildly atrophic, but otherwise no rmal-appearing, kidneys. 2. Urinary retention.
== END 2022-12-16 14:45 | disposition home or self-care (01) ==
PROVIDERS: PCP Family Medicine; Visit Provider Nurse Practitioner Adult Health
DX: N12 Tubulo-interstitial nephritis, not specified as acute or chronic (principal); R33.9 Retention of urine, unspecified; N28.89 Other specified disorders of kidney and ureter
CPT/HCPCS: 76770

== ENCOUNTER 2022-12-19 08:30 | Outpatient (CLI) | payer OTHER, SELFPAY ==
[2022-12-19 08:58] LABS: Appearance Urine Clear (Clear); Bilirubin Urine Negative (Negative); Blood Urine Negative (Negative); Color Urine Yellow (Yellow); Glucose Urine UA Negative (Negative); Ketones Urine Negative (Negative); Leukocyte Esterase Ur Negative LEU/UL (Negative); Nitrate Urine Negative (Negative); Protein Urine Negative (Negative); Specific Grav Ur 1.012 (1.001-1.035); Urobilinogen Urine 0.2 mg/dL (<2.0); pH Urine 6.5 (5.0-9.0)
[2022-12-19 09:00] LABS: Add Urine Microscopic? NO
== END 2022-12-19 08:31 | disposition home or self-care (01) ==
PROVIDERS: PCP Family Medicine; Visit Provider Physician Assistant
DX: R30.0 Dysuria (principal)
CPT/HCPCS: 81003

== ENCOUNTER 2023-01-18 01:09 | Day surgery (SDC) | payer OTHER, SELFPAY ==
[2023-01-05 12:43] VITALS: BMI 29.2
--- NOTE | 2023-01-17 10:23 | PM.HPGS ---
History of Present Illness History of Present Illness Consent: Risks, benefits, and alternatives have been discussed and questions answered. Patient agrees to proceed with procedure. Chief complaint: Early satiety, chronic pancreatitis Narrative: Georgina Marin is a 62 year old female who has a history of necrotizing pancreatitis and hepatic biliary aneurysm in 2001.? She also has a history of chronic pancreatitis, GERD, fundic gastric polyps, lupus, Cydney's thyroiditis, cholecystectomy, , carpal tunnel release.? She states since February she has been having intermittent right upper quadrant abdominal discomfort and states when she bends over she feels like there is an abnormal sensation.? She does not feel like it is musculoskeletal and denies any recent injury. Denies any back pain. This pain does not radiate.? She does notice it can be worse 1-2 hours after eating.? Tylenol may help somewhat. She denies any increasing acid reflux, nausea or vomiting.? Her last colonoscopy was 10 years ago. Review of Systems Review of Systems: All systems reviewed & are unremarkable except as noted in HPI and below PMFSH Past Medical History Medical History Body mass index [BMI] 30.0-30.9, adult (08/07/18) Chronic pancreatitis Colon cancer screening Counseling on health promotion and disease prevention Early satiety Gallbladder disease GERD (gastroesophageal reflux disease) Cydney's thyroiditis Cydney's thyroiditis Hip pain, bilateral Hip pain, right (~2019) Lupus arthritis Myalgia Necrotizing pancreatitis Pain in left hip Primary osteoarthritis of hips, bilateral Restless legs RUQ pain Sciatica Thyroid disease Trigger finger of both hands Trigger thumb of both thumbs Undifferentiated connective tissue disease (~2017) Undifferentiated connective tissue disease Surgical History Surgical History Delivery by section History of carpal tunnel release History of ERCP Hx of cholecystectomy S/P trigger finger release Family History Family History Father CAD (coronary artery disease) Dementia Hx of CABG Mother Breast cancer Alzheimers disease Grandparent Alzheimers disease Sibling Mitral stenosis Social History Social History Social History: Smoking status: Never smoker Second hand tobacco smoke exposure: No Alcohol intake: former Alcohol use details: 2 per month Substance use: never Substance use type: does not use Living arrangements: with family Occupation/Education: occupation Gender identity (if verbalized by the patient): Female Sexual Orientation (if Verbalized by the Patient): Straight or Heterosexual Spiritual care concerns: No Meds Home Medications and Allergies Home Medications Medication Instructions Recorded Confirmed Type calcium carbonate 600 mg calcium 1,200 mg PO DAILY 03/11/19 01/18/23 History (1,500 mg) tablet (Calcium) cholecalciferol (vitamin D3) 5,000 unit PO DAILY 03/11/19 01/18/23 History multivitamin 1 tablet PO DAILY 03/11/19 01/18/23 History liothyronine 5 mcg tablet 5 mcg PO DAILY #30 tabs 10/05/22 01/18/23 Rx levothyroxine 75 mcg tablet See Rx Instructions .Route 11/14/22 01/18/23 Rx .COMPLEX #27 tabs omeprazole 40 mg capsule,delayed 40 mg PO DAILY 12/19/22 01/18/23 History release cephalexin 250 mg capsule 250 mg PO HS 01/05/23 01/18/23 History Allergies Allergy/AdvReac Type Severity Reaction Status Date / Time codeine Allergy Unknown Itching Verified 01/18/23 08:05 morphine Allergy Unknown Itching Verified 01/18/23 08:05 tetracycline Allergy Unknown Vomiting Verified 01/18/23 08:05 macrobid Allergy Intermediate Rash Uncoded 01/18/23 08:05 Exam Const: General: alert Orientation/conscious
[2023-01-18 08:06] VITALS: BMI 29.0
[2023-01-18 08:09] VITALS: BP 134/79; PULSE 64; RESP 16; TEMP 36.3; O2SAT 100
[2023-01-18] MEDS: LACTATED RINGERS 1,000 ML 150 ML IV CONT (08:19)
--- NOTE | 2023-01-18 08:54 | WPDANESEPPF ---
Anes - Initial Pre Proc Eval Procedure: Operation Date: 01/18/23 09:30 Proposed Procedures p Esophagogastroduodenoscopy & Screening Colonoscopy - Noah Alatorre MD Date/Time: 01/18/23 08:54 Surgeon: Noah Alatorre MD Pre Op Diagnosis: Early satiety, chronic pancreatitis Patient Data Age: 62 Gender: F Height: 1.63 m Weight: 76.9 kg Last Vital Signs Temp 97.3 F L 01/18/23 08:09 Pulse 64 01/18/23 08:09 Resp 16 01/18/23 08:09 BP 134/79 01/18/23 08:09 Pulse Ox 100 01/18/23 08:09 O2 Del Method Room Air 01/18/23 08:09 Allergies Allergy/AdvReac Type Severity Reaction Status Date / Time codeine Allergy Unknown Itching Verified 01/18/23 08:05 morphine Allergy Unknown Itching Verified 01/18/23 08:05 tetracycline Allergy Unknown Vomiting Verified 01/18/23 08:05 macrobid Allergy Intermediate Rash Uncoded 01/18/23 08:05 Home Medications Medication Instructions Recorded Confirmed Type calcium carbonate 600 mg calcium 1,200 mg PO DAILY 03/11/19 01/18/23 History (1,500 mg) tablet (Calcium) cholecalciferol (vitamin D3) 5,000 unit PO DAILY 03/11/19 01/18/23 History multivitamin 1 tablet PO DAILY 03/11/19 01/18/23 History liothyronine 5 mcg tablet 5 mcg PO DAILY #30 tabs 10/05/22 01/18/23 Rx levothyroxine 75 mcg tablet See Rx Instructions .Route 11/14/22 01/18/23 Rx .COMPLEX #27 tabs omeprazole 40 mg capsule,delayed 40 mg PO DAILY 12/19/22 01/18/23 History release cephalexin 250 mg capsule 250 mg PO HS 01/05/23 01/18/23 History Patient hx anesthesia problems: none Family hx anesthesia problems: none Results Review: All pre-operative results and documents have been reviewed as part of the pre-operative evaluation. [facility] Past Medical History Medical History Body mass index [BMI] 30.0-30.9, adult (08/07/18) Chronic pancreatitis Colon cancer screening Counseling on health promotion and disease prevention Early satiety Gallbladder disease GERD (gastroesophageal reflux disease) Cydney's thyroiditis Cydney's thyroiditis Hip pain, bilateral Hip pain, right (~2019) Lupus arthritis Myalgia Necrotizing pancreatitis Pain in left hip Primary osteoarthritis of hips, bilateral Restless legs RUQ pain Sciatica Thyroid disease Trigger finger of both hands Trigger thumb of both thumbs Undifferentiated connective tissue disease (~2017) Undifferentiated connective tissue disease Surgical History Surgical History Delivery by section History of carpal tunnel release History of ERCP Hx of cholecystectomy S/P trigger finger release Family History Family History Father CAD (coronary artery disease) Dementia Hx of CABG Mother Breast cancer Alzheimers disease Grandparent Alzheimers disease Sibling Mitral stenosis Social History Social History Social History: Smoking status: Never smoker Second hand tobacco smoke exposure: No Alcohol intake: former Alcohol use details: 2 per month Substance use: never Substance use type: does not use Living arrangements: with family Occupation/Education: occupation Gender identity (if verbalized by the patient): Female Sexual Orientation (if Verbalized by the Patient): Straight or Heterosexual Spiritual care concerns: No Anes - Eval Final PreProcedure Day of Procedure 01/18/23 08:54 Patient weight: normal Heart: regular rate and rhythm Lungs: clear to auscultation Airway: Mallampati scale class II Neurological: alert and oriented Last oral intake: >/= 8 hours ASA classification: II Emergent: no Anesthetic plan: proceed Anesthesia type and monitoring: general GIVS and standard monitoring Results Review: All pre-operative results and documents have been revi
--- NOTE | 2023-01-18 09:28 | SUR.OPER ---
EGD END 921 COLONOSCOPY START 928
[2023-01-18 09:46] VITALS: BP 97/65; PULSE 60; RESP 15; O2SAT 97
[2023-01-18 09:56] VITALS: BP 110/72; PULSE 68; RESP 17; O2SAT 100
[2023-01-18 10:06] VITALS: BP 122/76; PULSE 62; RESP 17; O2SAT 100
--- NOTE | 2023-01-18 10:11 | SUR.PHASEII ---
Discharge delayed due to patient requesting to see MD again.
--- NOTE | 2023-01-18 10:20 | SUR.PHASEII ---
Physician spoke with patient and family.
== END 2023-01-18 10:24 | disposition home or self-care (01) ==
PROVIDERS: PCP Family Medicine; Visit Provider Internal Medicine Gastroenterology
PROC: 0DJ08ZZ Inspection of Upper Intestinal Tract, Via Natural or Artificial Opening Endoscopic (ICD-10-PCS; CPT 43235; principal; 2023-01-18 09:30)
DX: Z12.11 Encounter for screening for malignant neoplasm of colon (principal); K57.30 Diverticulosis of large intestine without perforation or abscess without bleeding; K64.8 Other hemorrhoids; K21.9 Gastro-esophageal reflux disease without esophagitis; K86.1 Other chronic pancreatitis; E06.3 Autoimmune thyroiditis; M32.9 Systemic lupus erythematosus, unspecified
CPT/HCPCS: 45378; 43239; 88305; J2001; J2405; J2704; J3010; J7120

== ENCOUNTER 2023-03-12 10:50 | Emergency (ER) | payer OTHER, SELFPAY ==
[2023-03-12 10:59] VITALS: BP 127/68; PULSE 98; RESP 14; TEMP 37.9; O2SAT 97
--- NOTE | 2023-03-12 11:24 | ED.URI ---
HPI - URI/Sore Throat General Chief Complaint: Upper Respiratory Infection Stated Complaint: Cough/Fever Time Seen by Provider: 03/12/23 11:21 Source: patient and family Mode of arrival: ambulatory Limitations: no limitations History of Present Illness HPI Narrative: Patient is a pleasant 62-year-old female with past medical history as noted below presents emergency department today ambulatory with a steady gait for evaluation of viral URI symptoms including cough, headache, some congestion, runny nose, body aches, chills, and a fever that started last night. Denies any known exposure to anybody with similar illness. Denies chest pain or shortness of breath. Denies any nausea, vomiting, diarrhea. Related Data Home Medications Medication Instructions Recorded Confirmed calcium carbonate 600 mg calcium 1,200 mg PO DAILY 03/11/19 01/18/23 (1,500 mg) tablet (Calcium) cholecalciferol (vitamin D3) 5,000 unit PO DAILY 03/11/19 01/18/23 multivitamin 1 tablet PO DAILY 03/11/19 01/18/23 omeprazole 40 mg capsule,delayed 40 mg PO DAILY 12/19/22 01/18/23 release cephalexin 250 mg capsule 250 mg PO HS 01/05/23 01/18/23 Allergies Allergy/AdvReac Type Severity Reaction Status Date / Time codeine Allergy Unknown Itching Verified 01/18/23 08:05 morphine Allergy Unknown Itching Verified 01/18/23 08:05 tetracycline Allergy Unknown Vomiting Verified 01/18/23 08:05 macrobid Allergy Intermediate Rash Uncoded 01/18/23 08:05 Review of Systems Review of Systems: CONSTITUTIONAL:+fever, chills, or sweats. EYES: Denies visual changes, redness, or discharge. ENT:++rhinorrhea, congestion, scratchy throat, sinus presure, sore throat CARDIOVASCULAR: Denies chest pain, palpitations, or edema. RESPIRATORY: +productive cough. denies dyspnea GASTROINTESTINAL: Denies abdominal pain, nausea, vomiting, or diarrhea. GENITOURINARY: Denies dysuria or hematuria. SKIN: Denies rash or itching. MUSCULOSKELETAL: Denies back pain. +body aches generalized NEUROLOGIC: +headache numbness, or weakness. PSYCHIATRIC: Denies anxiety or depression. All systems reviewed & are unremarkable except as noted in HPI and below PMFSH Past Medical History Medical History Body mass index [BMI] 30.0-30.9, adult (08/07/18) Chronic pancreatitis Colon cancer screening Counseling on health promotion and disease prevention Early satiety Gallbladder disease GERD (gastroesophageal reflux disease) Cydney's thyroiditis Cydney's thyroiditis Hip pain, bilateral Hip pain, right (~2019) Lupus arthritis Myalgia Necrotizing pancreatitis Pain in left hip Primary osteoarthritis of hips, bilateral Restless legs RUQ pain Sciatica Thyroid disease Trigger finger of both hands Trigger thumb of both thumbs Undifferentiated connective tissue disease (~2016) Undifferentiated connective tissue disease Surgical History Surgical History Delivery by section History of carpal tunnel release History of ERCP Hx of cholecystectomy S/P trigger finger release Family History Family History Father CAD (coronary artery disease) Dementia Hx of CABG Mother Breast cancer Alzheimers disease Grandparent Alzheimers disease Sibling Mitral stenosis Social History Social History Social History: Smoking status: Never smoker Second hand tobacco smoke exposure: No Alcohol intake: former Alcohol use details: 2 per month Substance use: never Substance use type: does not use Living arrangements: with family Occupation/Education: occupation Gender identity (if verbalized by the patient): Female Sexual Orientation (if Verbalized by the Patient): Straight or Heterosexual Spiritual care concerns: No Exam Narrative: GENERAL:
[2023-03-12 11:47] LABS: Influenza A QL RT-PCR Positive (Negative); Influenza B QL RT-PCR Negative (Negative); RSV RNA, RT-PCR Negative (Negative); SARS-CoV-2 RNA PCR Negative (Negative)
[2023-03-12] MEDS: BENZONATATE 100 MG CAPSULE 200 MG PO (11:48)
[2023-03-12] MEDS: IBUPROFEN 600 MG TABLET PO (11:48)
[2023-03-12] MEDS: guaiFENesin 600 MG/DEXTROMETHORPHAN 30 MG SR TAB 12 HR 1 TAB PO (11:48)
[2023-03-12 12:11] LABS: Strep Group A RT-PCR NOT DETECTED (Negative)
[2023-03-12] MEDS: OSELTAMIVIR PHOSPHATE 75 MG CAPSULE PO (12:44)
[2023-03-12 12:50] VITALS: PULSE 74; RESP 18; O2SAT 100
== END 2023-03-12 12:50 | disposition home or self-care (01) ==
PROVIDERS: Emergency Provider Nurse Practitioner; PCP Family Medicine
DX: J10.1 Influenza due to other identified influenza virus with other respiratory manifestations (principal); B34.9 Viral infection, unspecified; E06.3 Autoimmune thyroiditis; Z20.822 Contact with and (suspected) exposure to COVID-19
CPT/HCPCS: 87637; 87651; 99283; A9270

== ENCOUNTER 2023-03-17 08:03 | Outpatient (CLI) | payer OTHER, SELFPAY ==
[2023-03-17 08:33] LABS: Basophils Percent Auto 0.8 % (0.2-1.2); Eosinophils Absolute Auto 0.2 K/mm3 (0-0.3); Hematocrit 35.4 % (37.0-47.0); Hemoglobin 10.6 g/dL (12.0-15.0); Immature Granulocyte Absolute 0.02 K/mm3 (0.00-0.031); Immature Granulocyte Percent A 0.4 % (0-0.5); Lymphocytes Absolute Auto 1.94 K/mm3 (0.9-3.2); Lymphocytes Percent Auto 38.3 % (18.3-44.2); Mean Corpuscular HGB Conc 29.9 g/dl (32-36); Mean Corpuscular Hemoglobin 22.3 pg (26-34); Mean Corpuscular Volume 74.5 fl (80-100); Mean Platelet Volume 10.1 fl (7.4-10.4); Monocytes Absolute Auto 0.2 K/mm3 (0.1-0.6); Monocytes Percent Auto 4.5 % (2.6-8.5); Neutrophils Absolute Auto 2.7 K/mm3 (1.3-6.7); Platelet Count Result 281 k/mm3 (150-375); Red Blood Count 4.75 M/mm3 (4.2-5.4); Red Cell Distribution Width 16.1 % (11.5-14.5); White Blood Count 5.1 K/mm3 (4.5-10.0)
[2023-03-17 08:45] LABS: Alanine Aminotransferase 19 U/L (6-35); Albumin Level 4.1 g/dL (3.5-5.1); Alkaline Phosphatase 83 U/L (38-126); Anion Gap 11 mmol/L (8-16); Aspartate Amino Transferase 36 U/L (14-36); Bilirubin,Total 0.4 mg/dL (0.2-1.3); Blood Urea Nitrogen 15 mg/dL (7-17); Calcium 9.6 mg/dL (8.4-10.2); Carbon Dioxide 25 mmol/L (22-30); Chloride 105 mmol/L (98-107); Cholesterol 198 mg/dL (0-200); Estimated Glomerular Filt Rate 50; Glucose 105 mg/dL (65-110); HDL Direct 45 mg/dL; Sodium 141 mmol/L (137-145); Triglycerides 103 mg/dL (<150)
[2023-03-17 08:56] LABS: LDL Cholesterol Direct 109 mg/dL
[2023-03-17 09:57] LABS: Free T4 Free Thyroxine 1.46 ng/mL (0.78-2.19)
[2023-03-17 10:16] LABS: Hypochromasia 1+ (NORMAL); Ovalocytes 1+ (NORMAL); Platelet Estimate Adequate (Adequate); Poikilocytosis 1+ (NORMAL)
[2023-03-17 10:17] LABS: Schistocytes None Seen (NORMAL)
[2023-03-17 11:04] LABS: Hemoglobin A1C 6.3 % (<5.7)
[2023-03-20 11:06] LABS: Triiodothyronine T3 Free 3.1 pg/mL (2.3-4.2)
== END 2023-03-17 08:04 | disposition home or self-care (01) ==
LOC: ANHLAB 08:06
PROVIDERS: PCP Family Medicine; Visit Provider Physician Assistant
DX: E06.3 Autoimmune thyroiditis (principal); R63.1 Polydipsia; R68.2 Dry mouth, unspecified; R53.83 Other fatigue; Z13.220 Encounter for screening for lipoid disorders
CPT/HCPCS: 36415; 80053; 80061; 82607; 83036; 84439; 84443; 84481; 85025

== ENCOUNTER 2023-03-21 15:42 | Outpatient (CLI) | payer OTHER, SELFPAY ==
[2023-03-21 17:02] LABS: Erythrocyte Sedimentation Rate 29 mm/hr (0-20)
[2023-03-21 17:27] LABS: Iron 51 ug/dL (37-170)
[2023-03-21 17:36] LABS: Percent Iron Saturation 14 % (20-50)
[2023-03-25 04:29] LABS: Red Blood Cell Folate 688 ng/mL RBC (>280)
== END 2023-03-21 15:43 | disposition home or self-care (01) ==
PROVIDERS: PCP Family Medicine; Visit Provider Physician Assistant
DX: M35.9 Systemic involvement of connective tissue, unspecified (principal); D64.9 Anemia, unspecified
CPT/HCPCS: 36415; 82728; 82747; 83540; 83550; 85652

== ENCOUNTER 2023-04-07 16:23 | Outpatient (CLI) | payer OTHER, SELFPAY ==
--- NOTE | ~2023-04-07 | XR_ITS ---
XR foot RT min 3V DATE: 04/07/2023 16:49 INDICATION: Pain at right third through fifth metatarsals for 2 months TECHNIQUE: 4 views COMPARISON: None FINDINGS: There is mild chronic organized periosteal reaction along the lateral aspect of the proxima l and mid shaft of the fourth metatarsal bone and to a lesser extent along the lateral mid shaft of t he third metatarsal bone, likely due to chronic stress fractures. No recent fracture or dislocation. No periosteal reaction or bone destruction. Plantar calcaneal enthesopathy. IMPRESSION: Probable chronic stress fracture of fourth and to a lesser extent third metatarsal bones Reviewed, dictated and finalized at location B. OMER SERVICE ADVISOR IMPRESSION: Probable chronic stress fracture of fourth and to a lesser extent t hird metatarsal bones
--- NOTE | ~2023-04-07 | XR_ITS ---
XR shoulder RT min 2V DATE: 04/07/2023 16:48 INDICATION: Right shoulder pain for one year. No injury. TECHNIQUE: 4 views COMPARISON: None FINDINGS: Mild degenerative change at the right acromioclavicular joint. No fracture or dislocation, periosteal reaction or bone destruction or abnormal soft tissue calcification is detected. IMPRESSION: Mild degenerative change at acromioclavicular joint; otherwise no significant abnormality of right shoulder Reviewed, dictated and finalized at location B. EXPLORATION ENGINEER IMPRESSION: Mild degenerative change at acromioclavicular joint; otherwise no s ignificant abnormality of right shoulder
== END 2023-04-07 16:24 | disposition home or self-care (01) ==
LOC: ANHIMG 16:25
PROVIDERS: PCP Family Medicine; Visit Provider Physician Assistant
DX: M19.011 Primary osteoarthritis, right shoulder (principal)
CPT/HCPCS: 73030; 73630

== ENCOUNTER 2023-05-25 15:30 | Outpatient (RCR) | payer OTHER, SELFPAY ==
[2023-04-28 08:50] VITALS: BP_SYST 130
--- NOTE | 2023-04-28 09:54 | OPREHPOC ---
Outpatient Therapy Plan of Care This is a Multidisciplinary Plan of Care that may contain components documented by all disciplines (PT, OT, and ST.) PT Problem 1 PT Problem #1 Knowledge Deficit PT Goal 1 Goal 1* indep with HEP 2* correct position of shoulder with exercises PT Problem 2 PT Problem #2 Pain PT Goal 1 Goal 1* pt report pain rating at worst of 4/10 2* self assessment Quick DASH score of 14% limitation in activity level 3* pt report NO issues with falling asleep PT Problem 3 PT Problem #3 Impaired Flexibility PT Goal 1 Goal increase R shoulder flexibility to improve her home, work and self care tasks of reaching active R shoulder in standing 1* flexion 150' 2* abduction 135' 3* IR - reach behind back, palm to above waist PT Problem 4 PT Problem #4 Impaired Strength PT Goal 1 Goal increase strength of R shoulder, to improve ability to use R arm with reaching, lifting activities: in standing R shoulder, 5 reps: 1* flexion to 100' with 3# hand wt 2* abduction to 90' with 2# hand wt 3* bilateral UE 20# box lift waist/floor height x 3 reps
--- NOTE | 2023-04-28 09:54 | PTOPEVAL1 ---
Assessment and note entered by Yanique Hahn, PT Evaluation Information Assessment Status Evaluation Diagnosis R shoulder pain Onset about 1 year ago Subjective Information about 1 year ago, was carrying something heavy, her end dropped and jerked her shoulder; pain since then, gradual increase; R handed; x ray per pt arthritis, but feels like it is torn. 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 She reports having pain about 1 year, able to do things but pain increases, R hand dominant and problems getting comfortable to fall asleep. Self assessment Quick DASH score of 27% limitation in activity level. With the evaluation: she has rounded shoulder posture, decreased active shoulder flexion, abduction and IR motions, with increased pain and painful arcs of motion; there is not any tenderness to touch over shoulder; resisted supraspinatus, and motions of shoulder flexion and abduction increase pain. Skilled PT services are indicated for modalities to decrease pain, therapeutic exercises to increase shoulder ROM and
[2023-05-25 15:15] VITALS: BP_SYST 145
--- NOTE | 2023-05-25 16:00 | PTOPDC ---
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 Compared to the initial evaluation: pain decreased at worst from 8 to 5/10; no issues with sleeping or getting comfortable to fall asleep; self assessment Quick DASH from 27 to 25% limitation in activity level; standing active flexion & IR have increased and abduction has decreased; shoulder flexion and abduction motions increase pain with painful arc of motion and feeling of catching reported; heat and electrical stim decrease pain. R shoulder active ROM: flexion 145', abduction 70' She has been educated on HEP and posture. The goals were partially achieved. Discharge PT services. She is to continue with her HEP and pain control. She has ortho appt in 2 weeks. Plan of Care PT Services Indicated No
== END 2023-05-26 08:31 | disposition home or self-care (01) ==
LOC: ANHPT 15:30
PROVIDERS: PCP Family Medicine; Visit Provider Physician Assistant
DX: M25.511 Pain in right shoulder (principal)
CPT/HCPCS: 97014; 97110; 97140; 97161; 97530; G0283

== ENCOUNTER 2023-06-26 10:09 | Outpatient (CLI) | payer OTHER, SELFPAY ==
[2023-06-26 10:57] LABS: Basophils Percent Auto 0.7 % (0.2-1.2); Eosinophils Absolute Auto 0.1 K/mm3 (0-0.3); Eosinophils Percent Auto 1.9 % (0-4.4); Hematocrit 41.5 % (37.0-47.0); Hemoglobin 13.5 g/dL (12.0-15.0); Immature Granulocyte Absolute 0.01 K/mm3 (0.00-0.031); Immature Granulocyte Percent A 0.2 % (0-0.5); Lymphocytes Absolute Auto 2.26 K/mm3 (0.9-3.2); Lymphocytes Percent Auto 38.7 % (18.3-44.2); Mean Corpuscular HGB Conc 32.5 g/dl (32-36); Mean Corpuscular Hemoglobin 25.9 pg (26-34); Mean Corpuscular Volume 79.5 fl (80-100); Mean Platelet Volume 10.8 fl (7.4-10.4); Monocytes Absolute Auto 0.3 K/mm3 (0.1-0.6); Monocytes Percent Auto 5.7 % (2.6-8.5); Neutrophils Absolute Auto 3.1 K/mm3 (1.3-6.7); Neutrophils Percent Auto 52.8 % (45.5-73.1); Platelet Count Result 256 k/mm3 (150-375); Red Blood Count 5.22 M/mm3 (4.2-5.4); Red Cell Distribution Width 16.2 % (11.5-14.5); White Blood Count 5.8 K/mm3 (4.5-10.0)
[2023-06-26 11:11] LABS: Cholesterol 217 mg/dL (0-200); HDL Direct 74 mg/dL; Triglycerides 98 mg/dL (<150)
[2023-06-26 11:14] LABS: Appearance Urine Clear (Clear); Bilirubin Urine Negative (Negative); Blood Urine Negative (Negative); Color Urine Yellow (Yellow); Glucose Urine UA Negative (Negative); Ketones Urine Negative (Negative); Leukocyte Esterase Ur Negative LEU/UL (Negative); Nitrate Urine Negative (Negative); Protein Urine Negative (Negative); Specific Grav Ur 1.007 (1.001-1.035); Urobilinogen Urine 0.2 mg/dL (<2.0); pH Urine 7.5 (5.0-9.0)
[2023-06-26 11:15] LABS: Alanine Aminotransferase 20 U/L (6-35); Albumin Level 4.4 g/dL (3.5-5.1); Alkaline Phosphatase 85 U/L (38-126); Anion Gap 5 mmol/L (4-12); Aspartate Amino Transferase 33 U/L (14-36); Bilirubin,Total 0.5 mg/dL (0.2-1.3); Blood Urea Nitrogen 20 mg/dL (7-17); CRP < 0.5 mg/dL (<1.0); Calcium 10.1 mg/dL (8.4-10.2); Carbon Dioxide 26 mmol/L (22-30); Chloride 105 mmol/L (98-107); Estimated Glomerular Filt Rate 42; Glucose 107 mg/dL (65-110); Potassium 4.1 mmol/L (3.4-5.0); Sodium 136 mmol/L (137-145)
[2023-06-26 11:21] LABS: Iron 66 ug/dL (37-170)
[2023-06-26 11:22] LABS: LDL Cholesterol Direct 106 mg/dL
[2023-06-26 11:31] LABS: Percent Iron Saturation 19 % (20-50)
[2023-06-26 11:42] LABS: Add Urine Microscopic? NO
[2023-06-26 12:19] LABS: Erythrocyte Sedimentation Rate 14 mm/hr (0-20)
[2023-06-26 13:30] LABS: Hemoglobin A1C 5.7 % (<5.7)
[2023-06-28 18:42] LABS: SS-A <1.0; SS-B <1.0
== END 2023-06-26 10:10 | disposition home or self-care (01) ==
LOC: ANHLAB 10:13
PROVIDERS: PCP Family Medicine; Referring Provider Physician Assistant; Visit Provider Internal Medicine
DX: D64.9 Anemia, unspecified (principal); K21.9 Gastro-esophageal reflux disease without esophagitis; N11.9 Chronic tubulo-interstitial nephritis, unspecified; R73.03 Prediabetes; M19.90 Unspecified osteoarthritis, unspecified site; M35.9 Systemic involvement of connective tissue, unspecified
CPT/HCPCS: 36415; 80053; 80061; 81003; 82607; 83036; 83540; 83550; 85025; 85652; 86140; 86235

== ENCOUNTER 2023-06-30 15:32 | Outpatient (CLI) | payer OTHER, SELFPAY ==
--- NOTE | ~2023-06-30 | MR_ITS ---
EXAMINATION: MR foot RT wo con DATE: 06/30/2023 16:57 INDICATION: Lateral right midfoot pain TECHNIQUE: Magnetic resonance imaging (MRI) of the right fore/mid foot was performed without intraven ous contrast. Sequences included sagittal T1-weighted FSE, sagittal fluid sensitive FSE STIR, coronal PD-weighted FS FSE, coronal T1-weighted FSE, axial PD-weighted FS FSE, and axial PD-weighted FSE. COMPARISON: Right foot radiographs dated 04/07/2023 FINDINGS: Bone alignment is normal. No fracture. Mild polyarticular osteoarthritis characterized by partial thi ckness cartilage loss with mild nonuniform joint space narrowing and/or tiny marginal osteophytes. Th is is present at the first metatarsophalangeal, the calcaneocuboid, navicular cuneiform and multiple tarsometatarsal and interphalangeal joints. Likely degenerative mild subarticular edema-like signal c hange at the proximal metaphysis of the medial cuneiform, at the cuboid along its articulation with t he navicula and mild subarticular cystlike change at the plantar aspect of the base of the third meta tarsal. The Lisfranc ligament complex and the collateral ligament complexes at the metatarsophalangea l and interphalangeal joints are normal. The visualized portion of the flexor and extensor tendons an d the intrinsic musculature of the foot are unremarkable. Visualized amount fluid in the joint spaces . IMPRESSION: 1. Mild polyarticular osteoarthritis in the right mid and forefoot. Reviewed, dictated and finalized at location B.
--- NOTE | ~2023-06-30 | MR_ITS ---
EXAMINATION: MR shoulder RT wo con DATE: 06/30/2023 16:29 INDICATION: Right shoulder impingement syndrome TECHNIQUE: Magnetic resonance imaging (MRI) of the right shoulder was performed without intravenous c ontrast. Sequences included axial PD-weighted FS FSE, coronal oblique PD-weighted FS FSE, coronal obl ique T2-weighted FS FSE, sagittal PD-weighted FS FSE, and sagittal T1-weighted SE. COMPARISON: Right shoulder radiographs dated 04/07/2023 FINDINGS: Coracoacromial arch: The acromion undersurface is curved in morphology (type II). The coracoacromial ligament is normal. M oderate acromioclavicular osteoarthritis with small inferiorly directed osteophytes. Rotator cuff: Moderate supraspinatus and mild infraspinatus tendinopathy. There is a partial thickness articular si ded tear extending across the junction of the anterior and middle facets of the greater tuberosity fo otplate of the conjoined portion of the supraspinatus and infraspinatus tendons. The tear which exten ds 8 mm AP and 1.3 cm medial to lateral involves up to two thirds of the tendon thickness but spares the bursal surface. The teres minor tendon is normal. Mild subscapularis tendinopathy without tear. N ormal rotator cuff muscle bulk and signal. Biceps tendon, glenoid labrum and glenohumeral cartilage: Long head of the biceps tendon is normal. There is a shallow cleft suspicious for partial thickness t ear at the chondral labral junction of the 10:00-11:00 position of the posterosuperior glenoid labrum . Glenohumeral cartilage is normal. Fluid: Physiologic amount of fluid in the glenohumeral joint and biceps tendon sheath. No loose osteochondr al bodies. Small amount of fluid in the subacromial/subdeltoid bursa consistent with mild bursitis. Bones: Bone alignment is normal. Normal marrow signal with no fracture or pathologic marrow replacing proces s. IMPRESSION: 1. Moderate supraspinatus and mild infraspinatus and subscapularis tendinopathy with small moderate t o severe partial thickness articular sided tear at the insertion of the conjoined portion of the supr aspinatus and infraspinatus tendons. 2. Small shallow tear at the chondral labral junction of the posterosuperior glenoid labrum. 3. Moderate acromioclavicular osteoarthritis. 4. Mild subacromial/subdeltoid bursitis. Reviewed, dictated and finalized at location B. IMPRESSION: 1. Moderate supraspinatus and mild infraspinatus and subscapularis tendinopathy with small moderate to severe partial thickness articular sided tear at the in sertion of the conjoined portion of the supraspinatus and infraspinatus tendons . 2. Small shallow tear at the chondral labral junction of the posterosuperior gl enoid labrum. 3. Moderate acromioclavicular osteoarthritis. 4. Mild subacromial/subdeltoid bursitis.
== END 2023-06-30 15:33 | disposition home or self-care (01) ==
LOC: ANHIMG 15:33
PROVIDERS: PCP Family Medicine; Visit Provider Podiatrist Foot & Ankle Surgery
DX: M19.071 Primary osteoarthritis, right ankle and foot (principal); M19.011 Primary osteoarthritis, right shoulder; M75.51 Bursitis of right shoulder
CPT/HCPCS: 73221; 73718

== ENCOUNTER 2023-09-26 16:09 | Outpatient (CLI) | payer OTHER, SELFPAY ==
[2023-09-26 16:45] LABS: Hematocrit 38.7 % (37.0-47.0); Hemoglobin 13.3 g/dL (12.0-15.0)
[2023-09-26 16:52] LABS: Anion Gap 8 mmol/L (4-12); Blood Urea Nitrogen 14 mg/dL (7-17); Calcium 9.5 mg/dL (8.4-10.2); Carbon Dioxide 29 mmol/L (22-30); Chloride 100 mmol/L (98-107); Estimated Glomerular Filt Rate 56; Glucose 96 mg/dL (65-110); Sodium 137 mmol/L (137-145)
[2023-09-26 17:27] LABS: Partial Thromboplastin Time 26.2 Seconds (22.3-36.8); Prothrombin Time 13.4 Seconds (11.1-14.7)
== END 2023-09-26 16:10 | disposition home or self-care (01) ==
PROVIDERS: PCP Family Medicine; Visit Provider Anesthesiology
DX: Z01.818 Encounter for other preprocedural examination (principal); N28.9 Disorder of kidney and ureter, unspecified; D64.9 Anemia, unspecified
CPT/HCPCS: 36415; 80048; 85014; 85018; 85610; 85730

== ENCOUNTER 2023-10-06 00:24 | Day surgery (SDC) | payer OTHER, SELFPAY ==
[2023-09-26 14:57] VITALS: BMI 27.5
--- NOTE | 2023-09-26 15:05 | PC.NURSE ---
Addendum entered by Brien Barajas RN 09/26/23 15:33: Luz says she's started 09-21-2023 holding Hydroxychloroquine per request of Dr Ardon. Original Note: Report to the Outpatient Waiting Room, entrance under the green pavilion located off [facility], at time _1000_ on date _[id number]_. Planned Procedure Time: _1200_. Time changes happen often and if your time is changed the preop area will call you the afternoon before. - You and your visitor will be asked to self-screen and do not enter if you have any COVID symptoms. - A mask is optional within the hospital at this time. Patients may have clear liquids (water, carbonated beverages, clear teas, apple juice) until 3 hours prior to surgery with a maximum of 20 ounces. - No food from midnight until time of surgery Take the following medications with a SIP of water the morning of surgery: __Levothyroxine DO NOT STOP ANY OF YOUR OTHER PRESCRIPTION MEDICATIONS PRIOR TO SURGERY ?EXCEPT THE FOLLOWING Medications to discontinue per physician Vitamins date to take last clrx___[phone] Please no make-up, nail sudanese, hairspray, perfume, deodorant, or body powder the day of surgery. No jewelry (including any body piercings) or valuables the day of surgery, leave them at home. Please take a shower or bath the night before, or the morning of, surgery with an antibacterial soap. Wear comfortable, loose fitting clothing. - Jewelry must be removed prior to entering the operating room. Rings and piercings that are not removed may be cut off. - The hospital will not accept responsibility for valuables. - Please leave all valuables, including medications, at home the day of surgery. If you are going home after surgery, a licensed class a regional drivers must drive you home. - NO public transportation without another adult if you receive anesthesia. - We recommend that an adult stay with you for 24 hours following discharge. - We also recommend that you do not drive, make important decision, drink alcoholic beverages, or take any drugs that were not prescribed by your health care provider for at least 24 hours after your discharge time. Follow any additional instructions given to you from your surgeon. If you or anyone in your household have experienced Covid symptoms in the past week, please notify your surgeon or the nurse liaison at the phone number below for possible testing. Telephone instructions given to __cindy___and asked if any additional questions and then verbalized understanding. Patient advised to call surgeon office or pre surgery nurse liaison [phone] if any additional questions.
[2023-10-06] VITALS (10 sets, daily range): BP systolic 119–141; BP diastolic 61–75; PULSE 54–79; RESP 13–18; TEMP 36.2–36.3; O2SAT 96–100
[2023-10-06] MEDS: EPINEPHrine HCL INJ 1 MG/ML AMPUL 3 MG IRRIGATION (08:46)
[2023-10-06] MEDS: LACTATED RINGERS 1,000 ML 30 ML IV CONT ×2 (10:30→13:55)
--- NOTE | 2023-10-06 11:06 | WPDANESEPPF ---
Anes - Initial Pre Proc Eval Procedure: Operation Date: 10/06/23 12:00 Proposed Procedures p Right Shoulder Arthroscopic Rotator Cuff Repair with Subacromial Decompression - Obdulio Ardon MD Date/Time: 10/06/23 11:06 Surgeon: Obdulio Ardon MD Pre Op Diagnosis: Imping Syn Partial RCT Rt Shoulder Patient Data Age: 62 Gender: F Height: 1.6 m Weight: 71.3 kg Last Vital Signs Temp 36.2 C L 10/06/23 10:15 Pulse 54 L 10/06/23 10:15 Resp 18 10/06/23 10:15 BP 133/75 10/06/23 10:15 Pulse Ox 100 10/06/23 10:15 O2 Del Method Room Air 10/06/23 10:15 Allergies Allergy/AdvReac Type Severity Reaction Status Date / Time nitrofurantoin Allergy Intermediate Rash Verified 10/06/23 10:07 codeine Allergy Unknown Itching Verified 10/06/23 10:07 morphine Allergy Unknown Itching Verified 10/06/23 10:07 tetracycline Allergy Unknown Vomiting Verified 10/06/23 10:07 Home Medications Medication Instructions Recorded Confirmed Type calcium carbonate (Calcium 600) 1,200 mg PO DAILY 03/11/19 10/06/23 History cholecalciferol (vitamin D3) 10,000 unit PO DAILY 03/11/19 10/06/23 History multivitamin 1 tablet PO DAILY 03/11/19 10/06/23 History hydroxychloroquine 200 mg tablet 400 mg PO DAILY #180 tabs 06/26/23 10/06/23 Rx (Plaquenil) liothyronine 5 mcg tablet See Rx Instructions .Route 07/19/23 10/06/23 Rx .COMPLEX #90 tabs levothyroxine 75 mcg tablet See Rx Instructions .Route 08/11/23 10/06/23 Rx .COMPLEX #27 tabs omeprazole 40 mg capsule,delayed 40 mg PO DAILY #90 caps 08/21/23 10/06/23 Rx release magnesium 200 mg tablet 400 mg PO DAILY 09/08/23 10/06/23 History ferrous sulfate 325 mg (65 mg 325 mg PO DAILY 09/26/23 10/06/23 History iron) tablet Patient hx anesthesia problems: none Family hx anesthesia problems: none Results Review: All pre-operative results and documents have been reviewed as part of the pre-operative evaluation. PMFSH Past Medical History Medical History Body mass index [BMI] 30.0-30.9, adult (08/07/18) Chronic pancreatitis Colon cancer screening Counseling on health promotion and disease prevention Early satiety Gallbladder disease GERD (gastroesophageal reflux disease) Cydney's thyroiditis Cydney's thyroiditis Hip pain, bilateral Hip pain, right (~2019) Lupus arthritis Myalgia Necrotizing pancreatitis Pain in left hip Primary osteoarthritis of hips, bilateral Restless legs RUQ pain Sciatica Thyroid disease Trigger finger of both hands Trigger thumb of both thumbs Undifferentiated connective tissue disease (~2017) Undifferentiated connective tissue disease Surgical History Surgical History Delivery by section History of carpal tunnel release History of ERCP Hx of cholecystectomy S/P trigger finger release Family History Family History Father CAD (coronary artery disease) Dementia Hx of CABG Mother Breast cancer Alzheimers disease Grandparent Alzheimers disease Sibling Mitral stenosis Social History Social History Social History: Smoking status: Never smoker Second hand tobacco smoke exposure: No Alcohol intake: former Alcohol use details: 2 per month Substance use: never Substance use type: does not use Living arrangements: with family Occupation/Education: occupation Gender identity (if verbalized by the patient): Female Sexual Orientation (if Verbalized by the Patient): Straight or Heterosexual Spiritual care concerns: No Anes - Eval Final PreProcedure Day of Procedure 10/06/23 11:06 Patient weight: overweight Heart: regular rate and rhythm Lungs: clear to auscultation Airway: Mallampati scale class II Neurological: alert and oriented Last oral intake:
[2023-10-06] MEDS: KETOROLAC 15 MG/ML VIAL (*BKC) IV PUSH (11:21)
[2023-10-06] MEDS: ACETAMINOPHEN 500 MG TABLET 1000 MG PO (11:21)
--- NOTE | 2023-10-06 11:43 | WPDHPUPDATE1 ---
History and Physical Update Update Date/Time: 10/06/23 11:43 History and Physical has been reviewed, including an updated exam of the patient. There are NO changes in the patient's condition. Risks, benefits, and alternatives have been discussed and questions answered. Patient agrees to proceed with procedure.
--- NOTE | 2023-10-06 12:02 | WPDANESPNB ---
Anes - Peripheral Nerve Block Date/Time: 10/06/23 12:02 I have discussed with the patient/family/POA the placement of a peripheral nerve block for post-operative pain management, including associated risks, benefits, complications, and side effects. Alternative methods of post-operative analgesia were detailed. Questions were solicited and answers provided to the satisfaction of the patient/family/POA. Time-Out: A pre-procedural Time-Out was completed immediately before starting the procedure and confirmed: Patient Identification, Site, Procedure, Patient Position and the Availability of Requisite Equipment. Clinical Indications: Acute post-operative pain management requested by the operative surgeon. Nerve Block Insertion Note Needle: 22 gauge, stimulating, insulated echogenic needle. Needle length: 50 mm Technique: ultrasound Injectate: bupivacaine 0.5% with epi 5 mcg/ml (30cc) and dexamethasone (mg) (8) Observations: tolerated well Complications: none Procedure start time:: 1155 Procedure end time:: 1200
[2023-10-06] MEDS: ceFAZolin 2 GM/D5W 50 ML 2 GM/50 ML BAG IVPB (12:07)
--- NOTE | 2023-10-06 12:27 | W.PM.PROC2 ---
Procedure Note - Detailed Date of Procedure 10/06/23 Pre-op Diagnosis Partial-thickness rotator cuff tear right shoulder. Impingement syndrome. Post-op Diagnosis Other (1. Complete rotator cuff tear 2. Subacromial impingement ) Procedure Performed Right shoulder 1. Arthroscopic rotator cuff repair 2. Arthroscopic subacromial decompression Surgeon Obdulio Ardon MD [employer] Yessenia Valdovinos PA-C Anesthesia General and Regional ( interscalene block) Findings The rotator cuff was completely torn at the supraspinatus. There was tissue draped over the footprint which corresponded with the appearance of a partial-thickness tear on the MRI. The tear was medium size. [place] shaped. There was some delamination that was immobile. The tear was repaired without undue tension using 2 bone tunnels and 6 sutures. Rip stop technique. Acromioplasty performed. Description of Procedure Preoperative antibiotics were given. An interscalene block was administered in the preoperative area. The patient was bought brought to the operating room. A general anesthetic was administered. The patient was carefully positioned in the beach chair position. The head and neck were carefully positioned. The non operative extremity was also carefully positioned. The shoulder was prepped and draped in the usual sterile fashion. Examination was performed. Standard posterior and anterior arthroscopic portals were established. Inflow achieved with the arthroscopic pump using saline and epinephrine. The glenohumeral joint was carefully inspected. There was a high-grade articular sided tear that appeared to possibly be full-thickness at this point. Some anterior capsulitis. No contracture. Eagle complex with mild degenerative SLAP tear. Biceps anchor stable. Attention was turned to the subacromial space. A complete bursectomy was performed. Acromioplasty was performed with the arthroscopic bur. The tear configuration was carefully assessed. Medium size crescent tear without significant retraction. Some delamination. This was not mobile. At this point, 2 tunnels were created at the rotator cuff. Three sutures were passed through each tunnel. All sutures were then passed through the cuff tissue. The sutures were tied arthroscopically. The arthroscopic instruments were removed. The wounds were closed with 3-0 Monocryl subcuticular suture and steri strips. There were no complications. A sling was applied and the patient brought to the recovery room. Physician delinquent tax collector assistant, Yessenia Valdovinos PA-C, required for surgery; including patient positioning, draping, arthroscopic camera operation, maintaining instrument position, suture retrieval, wound closure, and dressing and sling placement. Estimated Blood Loss 20 Pathology None sent Complications No immediate complications Condition Stable Disposition PACU [facility] Billing Surgery - Charge Forward: Surgery Billing
--- NOTE | 2023-10-06 15:48 | SUR.PHASEII ---
Per patient she has taken oxycodone in the past along with a benadryl to prevent itching. Per Dr. Elio krishna to order both. See orders.
[2023-10-06] MEDS: oxyCODONE HCL (*CRX) 5 MG TAB IR PO (15:55)
[2023-10-06] MEDS: diphenhydrAMINE HCl CAP 25 MG CAPSULE PO (15:55)
--- NOTE | 2023-10-06 16:48 | SUR.PHASEII ---
VSS; patient unhooked from monitor and IV d/c at 1615. Discharge instructions given at this time. Pt ambulated to restroom and assisted by and this RN with getting dressed and reapplying sling shot sling. Patient complains of no adverse reaction from pain medication administered earlier. Pt d/c via wheelchair at 1635.
== END 2023-10-06 16:35 | disposition home or self-care (01) ==
PROVIDERS: PCP Family Medicine; Visit Provider Orthopaedic Surgery
PROC: (CPT 29805; principal; 2023-10-06 12:00)
DX: M75.111 Incomplete rotator cuff tear or rupture of right shoulder, not specified as traumatic (principal); M75.41 Impingement syndrome of right shoulder; G89.18 Other acute postprocedural pain; K21.9 Gastro-esophageal reflux disease without esophagitis; E06.3 Autoimmune thyroiditis
CPT/HCPCS: 64415; 29827; 29826; A4565; A9270; J0171; J0690; J1100; J1170; J1885; J2250; J3010; J7120

== ENCOUNTER 2023-11-24 09:45 | Outpatient (CLI) | payer OTHER, SELFPAY ==
[2023-11-24 11:25] LABS: Add Urine Microscopic? YES; Appearance Urine Clear (Clear); Bacteria Urine 4+ /hpf; Bilirubin Urine Negative (Negative); Blood Urine Negative (Negative); Color Urine Yellow (Yellow); Glucose Urine UA Negative (Negative); Ketones Urine Negative (Negative); Leukocyte Esterase Ur 3+ LEU/UL (Negative); Nitrate Urine Negative (Negative); Non Pathogenic Casts 0-2; Protein Urine Negative (Negative); RBC Urine 0-2 /hpf (0-2); Specific Grav Ur 1.006 (1.001-1.035); Squamous Epithelial Cell Urine None Seen /hpf (Few); Urobilinogen Urine 0.2 mg/dL (<2.0); WBC Urine 51-100 /hpf (0-3); pH Urine 7.5 (5.0-9.0)
== END 2023-11-24 09:46 | disposition home or self-care (01) ==
LOC: ANHLAB 09:47
PROVIDERS: PCP Family Medicine; Visit Provider Student in an Organized Health Care Education/Training Program
DX: R35.89 Other polyuria (principal)
CPT/HCPCS: 81001; 87077; 87086; 87088; 87186

== ENCOUNTER 2023-12-07 09:10 | Outpatient (CLI) | payer OTHER, SELFPAY ==
--- NOTE | ~2023-12-07 | MM_ITS ---
EXAMINATION: MM screening azar BI w dev HISTORY: Screening mammogram, family history of breast cancer in her mother. TECHNIQUE: Craniocaudal and mediolateral oblique 3-D tomosynthesis images were obtained and synthetic 2-D images were generated. CAD analysis was submitted and interpreted. COMPARISON: 10/13/2022, 07/27/2021, 05/21/2020, 04/16/2019 BREAST PARENCHYMAL COMPOSITION:Not Dense. There are scattered areas of fibroglandular density. FINDINGS: No suspicious mass, calcification, or architectural distortion are identified in either rose marie ast to suggest malignancy. There has been no suspicious interval change. IMPRESSION: No mammographic evidence of malignancy. Recommend routine screening mammography in one year. BI-RADS Category 1: Negative Reviewed, dictated and finalized at location .
== END 2023-12-07 09:11 | disposition home or self-care (01) ==
LOC: ANHIMG 09:11
PROVIDERS: PCP Family Medicine; Visit Provider Family Medicine
DX: Z12.31 Encounter for screening mammogram for malignant neoplasm of breast (principal)
CPT/HCPCS: 77063; 77067

== ENCOUNTER 2024-01-10 07:04 | Outpatient (CLI) | payer OTHER, SELFPAY ==
--- NOTE | ~2024-01-10 | XR_ITS ---
XR wrist LT 2V Ordering provider: Jaimie Noble PA-C History: . M25.532 - Pain in left wrist . Comparison: September 29, 2018 FINDINGS: BONES: Small bony fragment is seen posteriorly which may indicate triquetral fracture. No definite sc aphoid fracture. JOINT SPACES: Well maintained. Osteoarthritic changes of the first carpometacarpal joint. SOFT TISSUES: Normal. IMPRESSION: Highly suggestive triquetral fracture. Reviewed, dictated and finalized at location A.
[2024-01-10 07:56] LABS: Add Urine Microscopic? YES; Appearance Urine Cloudy (Clear); Bacteria Urine 4+ /hpf; Bilirubin Urine Negative (Negative); Blood Urine Negative (Negative); Color Urine Yellow (Yellow); Glucose Urine UA Negative (Negative); Ketones Urine Negative (Negative); Leukocyte Esterase Ur 3+ LEU/UL (Negative); Nitrate Urine Positive (Negative); Non Pathogenic Casts 0-2; Protein Urine Negative (Negative); RBC Urine 0-2 /hpf (0-2); Specific Grav Ur 1.007 (1.001-1.035); Squamous Epithelial Cell Urine None Seen /hpf (Few); Urobilinogen Urine 0.2 mg/dL (<2.0); WBC Urine >100 /hpf (0-3)
[2024-01-10 08:44] LABS: Free T4 Free Thyroxine 1.05 ng/mL (0.78-2.19)
== END 2024-01-10 07:05 | disposition home or self-care (01) ==
PROVIDERS: PCP Family Medicine; Visit Provider Physician Assistant
DX: E07.9 Disorder of thyroid, unspecified (principal); R30.0 Dysuria; M25.532 Pain in left wrist; S69.92XA Unspecified injury of left wrist, hand and finger(s), initial encounter; X58.XXXA Exposure to other specified factors, initial encounter
CPT/HCPCS: 36415; 73100; 81001; 84439; 84443; 87077; 87086; 87186

== ENCOUNTER 2024-02-01 08:00 | Outpatient (RCR) | payer OTHER, SELFPAY ==
[2023-11-03 08:50] VITALS: BP_SYST 0
--- NOTE | 2023-11-07 09:20 | PTOPEVAL1 ---
Assessment and note entered by Adelaida Hahn, PT Evaluation Information Assessment Status Evaluation Diagnosis z48.89 ICD-10 Condition Codes (PT) M54.6,M25.511,Weakness R53.1 Onset October 06, 2023 Subjective Information Pt reports March of 2022, She recalled carrying a load that accidentally dropped on the ground pulling the R shoulder downward motion, states it hurt but seems to come and go at the time, she also plays ball and when she performs throwing, the pain then gradually got worse with lateral and overhead movements. She received X-rays and therapy starting March of this year and had the surgery due to no resolution of pain. Ortho diagnosed with full supraspinatus tear. Driving, reaching overhead, lifting objects have been challenging due to the restrictions. States she is on 4 weeks post op protocol, still wearing the sling at this time, reports removes it when performing exercises prescribed by MD. Reported Pain Level Pain Score 3: Self Report Additional Pain Score Comments noted discomfort and mild pain to lateral elbow area that is intermittent and random. Recommendation for patient to monitor and ice at home prn. Assessment PT Clinical Summary Pt is a 62 yo female pt who presents with a s/p R rotator cuff (complete tear) repair last 2023. At week 4 from surgery, pt demos significantly limited mobility and continues to wear a sling with R shoulder positioned in neutral position and supported elbow flexion; weakness to RUE muscles, soft tissue tightness to R traps, burning sensation and tenderness around shoulder joint. Post Op status impact her functional mobility and independence with IADLs. She will benefit from skilled PT to reduce pain, improve mobility and regains strength and stability for safe return to PLOF. Plan of Care Interventions Electrical Stimulation,Hot Pack/Cold Pack,Manual Therapy,Neuro Re-education,Patient/Caregiver Education,Therapeutic Activities,Therapeutic Exercise Other Interventions IASTM, Taping PT Services Indicated Yes Treatment Frequency and 2x/wk x 20 visits Duration These treatments will address the objective and functional deficits as defined above. The patient will be advanced safely and appropriately in order for the patient to progress towards his/her prior level of function. Additional exercises will be introduced and as well as a comprehensive home exercise program upon discharge, if needed, ?to ensure carryover of functional gains achieved in the clinic. This treatment plan has been reviewed and agreement upon by the patient.
[2023-12-04 08:13] VITALS: BP_SYST 120
--- NOTE | 2023-12-04 09:28 | PTOPPROG ---
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 Reports feeling 85% improved overall Pt reports was able to finish painting her garage this weekend without issue. Assessment PT Clinical Summary Pt is a 62 yo female pt who presents with a s/p R rotator cuff (complete tear) repair last 2023. Pt is progressing in her passive and active ROM, has yet to begin RTC strengthening but has been able to perform scapular strengthening. Pt quick dash score dropped from 67% disability to 18 %, and pt reports feeling 85% improved overall. States she still feels like her arm is heavy, but that she can do activities such as grooming and washing/putting up her hair. Pt has yet to return to full PLOF with appropriate RUE strength and overhead use, thus would benefit from continued therapy to address these deficits and meet overall goals. Plan of Care Interventions Electrical Stimulation,Hot Pack/Cold Pack,Manual Therapy,Neuro Re-education,Patient/Caregiver Educati,Therapeutic Activities,Therapeutic Exercise Other Interventions IASTM, Taping PT Services Indicated Yes Treatment Frequency and 1-2x/wk x 10 visits Duration These treatments will address the objective and functional deficits as defined above. The patient will be advanced safely and appropriately in order for the patient to progress towards his/her prior level of function. Additional exercises will be introduced and as well as a comprehensive home exercise program upon discharge, if needed, ?to ensure carryover of functional gains achieved in the clinic. This treatment plan has been reviewed and agreement upon by the patient.
--- NOTE | 2023-12-25 09:03 | PTOPPROG ---
Assessment and note entered by Stephany Bernal, PT Evaluation Information Assessment Status Progress Diagnosis z48.89 ICD-10 Condition Codes (PT) M54.6,M25.511,Weakness R53.1 Onset October 06, 2023 Subjective Information Pt reports feeling 95% improved overall. States her last 5% she feels is strength in things she is not allowed to do. Was able to mow with riding mower yesterday with wheel steering. Notes does not have power steering. 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 Assessment PT Clinical Summary Pt reports very low discomfort levels with greatest discomfort being a 1/10. She feels 95% improved overall with the strength being her last 5% she feels is lacking Pt cont to demo improving ROM in all planes, especially in the flexion and external rotation active ROM today. Initial strength testing performed grossly 3+ to 4-/5 within normal limits for this phase of therapy. Pt has initiated work related tasks such as pushing carts in therapy, rhythmic stabilization and PNF strengthening. Cont to demo posterior capsule tightness and difficulty with anterior tilt of scapula with ROM at and above 90 degrees. Will benefit from cont therapy to continue improving scapular awareness and stabilization, RTC strengthening, and high level strengthening/ stability for work and home related activities. Plan of Care Interventions Electrical Stimulation,Hot Pack/Cold Pack,Manual Therapy,Neuro Re-education,Patient/Caregiver Educati,Therapeutic Activities,Therapeutic Exercise Other Interventions IASTM, Taping PT Services Indicated Yes Treatment Frequency and 1-2x weekly x 10 visits Duration These treatments will address the objective and functional deficits as defined above. The patient will be advanced safely and appropriately in order for the patient to progress towards his/her prior level of function. Additional exercises will be introduced and as well as a comprehensive home exercise program upon discharge, if needed, ?to ensure carryover of functional gains achieved in the clinic. This treatment plan has been reviewed and agreement upon by the patient.
--- NOTE | 2024-01-14 13:21 | PCPTNOTE ---
LATE ENTRY This note is being entered to document information to the patient's record. The following information was omitted on [12/28/2023], by [Adelaida Hahn, PT]. MODALITIES: Ultrasound: Right Upper Back Patient Position: sitting Coupling Medium: Ultrasound Gel Mode Setting: Pulsed 1.0 mgHz Intensity Settin.5 Treatment Duration: 10 Ultrasound Charge: Ultrasound only Reason for Treatment: Increase Circulation Response to Treatment: Muscle Relaxation EXERCISES: Seated Theraband exercises (red): Scapular retraction Scaption Shoulder Frexion Standing bilat Theraband resistance exercises (green) to tolerated range: Shoulder ER/IR Shoulder extension Scapular retraction and Depression Rows MANUAL THERAPY: MFR to bilat traps, rhomboids area; Soft tissue mob along triceps, brachiorads area
--- NOTE | 2024-01-14 13:22 | PCPTNOTE ---
LATE ENTRY This note is being entered to document information to the patient's record. The following information was omitted on [01/01/2024], by [Adelaida Hahn, PT]. EXERCISES: Seated [place] and theraband exercises (red): Scapular retraction Scaption Shoulder Frexion Standing bilat Theraband resistance exercises (green) to tolerated range: Shoulder ER/IR Shoulder extension Scapular retraction and Depression Rows MANUAL THERAPY MFR to bilat traps, rhomboids area; Soft tissue mob along triceps, brachiorads area
[2024-01-30 08:02] VITALS: BP_SYST 130
--- NOTE | 2024-01-31 18:24 | PTOPPROG ---
Assessment and note entered by Stephany Bernal, PT Evaluation Information Assessment Status Progress Diagnosis z48.89 ICD-10 Condition Codes (PT) M54.6,M25.511,Weakness R53.1 Onset October 06, 2023 Subjective Information Reports overall is doing really but has teeny tiny things here and there that are problematic. Reaching out to the side is still tight. Reports would like to get back to normal work. Reports had some increased popping this morning. Reports is a 0/10 most of the time. 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 Assessment PT Clinical Summary Pt has attended therapy consistently for her shoulder post rotator cuff surgery. She has made significant progress in all areas including passive and active ROM, strength, and pain reduction. She does cont to have some crepitus anterior shoulder that has lessened over therapy. Also demos some mild continued scapulohumeral dyskinesia though is pain free with this. Pt has yet to return her full activity level at work, it appears she would be able to return to such activities and regain endurance. Pt would benefit form therapy to continue focusing on strengthening and scapulohumeral patterning pending ortho follow-up consult. Plan of Care Interventions Electrical Stimulation,Hot Pack/Cold Pack,Manual Therapy,Neuro Re-education,Patient/Caregiver Educati,Therapeutic Activities,Therapeutic Exercise Other Interventions IASTM, Taping PT Services Indicated Yes Treatment Frequency and 1x weekly x 6 visits Duration These treatments will address the objective and functional deficits as defined above. The patient will be advanced safely and appropriately in order for the patient to progress towards his/her prior level of function. Additional exercises will be introduced and as well as a comprehensive home exercise program upon discharge, if needed, ?to ensure carryover of functional gains achieved in the clinic. This treatment plan has been reviewed and agreement upon by the patient.
== END 2024-02-01 23:59 | disposition home or self-care (01) ==
LOC: ANHHIPT 08:00
PROVIDERS: PCP Family Medicine; Visit Provider Orthopaedic Surgery
DX: Z48.89 Encounter for other specified surgical aftercare (principal); M54.6 Pain in thoracic spine; M25.511 Pain in right shoulder; R53.1 Weakness
CPT/HCPCS: 97014; 97032; 97035; 97110; 97112; 97140; 97161; 97530; 97750; G0283

== ENCOUNTER 2024-02-04 13:15 | Outpatient (CLI) | payer OTHER, SELFPAY ==
--- NOTE | ~2024-02-04 | MR_ITS ---
EXAMINATION: MR wrist LT wo/w con DATE: 02/04/2024 15:00 INDICATION: Left wrist pain TECHNIQUE: Magnetic resonance imaging (MRI) of the left wrist was performed without intravenous contr ast. Sequences performed include axial PD-weighted FSE and PD-weighted FS FSE, coronal PD-weighted FS FSE and T1-weighted SE, and sagittal PD-weighted FS FSE and PD-weighted FSE. COMPARISON: None FINDINGS: Intrinsic ligaments: Linear tear in the central membranous component of the scapholunate ligament. The dorsal and volar co mponents of the ligament remain normal. The lunotriquetral ligament is normal. Triangular fibrocartilage complex (TFCC): There are tears at the ulnar styloid attachment of the triangular fibrocartilage complex which extend s into the ulnar side of the central fibrocartilaginous disc. There are additional partial tears velia g the dorsal radioulnar ligament, at the radial aspect of the volar radioulnar ligament and immediate ly adjacent aspect of the central fibrocartilaginous disc as well as the at the distal ulnar collater al ligament extending into the meniscal homologue. The lunotriquetral ligament is normal. The extenso r carpi ulnaris tendon sheath is normal. Extensor wrist: Mild tendinopathy and partial-thickness longitudinal split tear along the extensor carpi ulnaris tend on centered at the level of the ulnar styloid process. There is associated mild increased signal and enhancing tenosynovitis along the extensor carpi ulnaris tendon sheath. Remaining extensor tendons ar e normal. Flexor wrist: The flexor tendons of the wrist are normal. No abnormality in the carpal tunnel with normal median ne rve. Guyon's canal: Guyon's canal including the ulnar nerve and artery are normal. Bones/other: Bone alignment is normal. No fracture, osteonecrosis or pathologic marrow replacing process. There is moderate to severe osteoarthritis at the first carpometacarpal joint. Moderate osteoarthritis at the triscaphe joint and mild osteoarthritis at the remaining joints at the wrist and carpus. No erosions to suggest inflammatory arthritis. There is a small multilobulated ganglion cyst which appears to r ise from the central volar aspect of the radiocarpal articulation which extends proximal radial along the volar side of the distal radius and which measures 12 x 10 x 4 mm. IMPRESSION: 1. Complex tear of the triangular fibrocartilage complex. 2. Perforation of the central membranous component of the scapholunate ligament with normal appearanc e to the more physiologically significant dorsal and volar components. 3. Polyarticular osteoarthritis, severe at the first carpometacarpal joint, moderate severity at the triscaphe joint and otherwise mild. 4. Mild extensor carpi ulnaris tenosynovitis, tendinopathy and partial-thickness split tear. Reviewed, dictated and finalized at location B. [facility] IMPRESSION: 1. Complex tear of the triangular fibrocartilage complex. 2. Perforation of the central membranous component of the scapholunate ligament with normal appearance to the more physiologically significant dorsal and vola r components. 3. Polyarticular osteoarthritis, severe at the first carpometacarpal joint, mod erate severity at the triscaphe joint and otherwise mild. 4. Mild extensor carpi ulnaris tenosynovitis, tendinopathy and partial-thicknes s split tear.
== END 2024-02-04 13:16 | disposition home or self-care (01) ==
PROVIDERS: PCP Family Medicine; Visit Provider Physician Assistant Surgical
DX: M19.032 Primary osteoarthritis, left wrist (principal); S63.592A Other specified sprain of left wrist, initial encounter; X58.XXXA Exposure to other specified factors, initial encounter; M65.842 Other synovitis and tenosynovitis, left hand
CPT/HCPCS: 73223; A9577

== ENCOUNTER 2024-02-14 08:51 | Outpatient (CLI) | payer OTHER, SELFPAY ==
[2024-02-14 09:44] LABS: Basophils Absolute Auto 0.1 K/mm3 (0.0-0.1); Basophils Percent Auto 0.7 % (0.2-1.2); Eosinophils Absolute Auto 0.1 K/mm3 (0-0.3); Eosinophils Percent Auto 2.1 % (0-4.4); Hematocrit 40.3 % (37.0-47.0); Hemoglobin 13.3 g/dL (12.0-15.0); Immature Granulocyte Absolute 0.02 K/mm3 (0.00-0.031); Immature Granulocyte Percent A 0.3 % (0-0.5); Lymphocytes Absolute Auto 2.36 K/mm3 (0.9-3.2); Lymphocytes Percent Auto 35.3 % (18.3-44.2); Mean Corpuscular Hemoglobin 27.2 pg (26-34); Mean Corpuscular Volume 82.4 fl (80-100); Mean Platelet Volume 10.5 fl (7.4-10.4); Monocytes Absolute Auto 0.3 K/mm3 (0.1-0.6); Monocytes Percent Auto 5.1 % (2.6-8.5); Neutrophils Absolute Auto 3.8 K/mm3 (1.3-6.7); Neutrophils Percent Auto 56.5 % (45.5-73.1); Platelet Count Result 247 k/mm3 (150-375); Red Blood Count 4.89 M/mm3 (4.2-5.4); Red Cell Distribution Width 13.4 % (11.5-14.5); White Blood Count 6.7 K/mm3 (4.5-10.0)
[2024-02-14 09:45] LABS: Add Urine Microscopic? NO; Appearance Urine Clear (Clear); Bilirubin Urine Negative (Negative); Blood Urine Negative (Negative); Color Urine Yellow (Yellow); Glucose Urine UA Negative (Negative); Ketones Urine Negative (Negative); Leukocyte Esterase Ur Negative LEU/UL (Negative); Nitrate Urine Negative (Negative); Protein Urine Negative (Negative); Specific Grav Ur 1.013 (1.001-1.035); Urobilinogen Urine 0.2 mg/dL (<2.0)
[2024-02-14 10:19] LABS: Erythrocyte Sedimentation Rate 20 mm/hr (0-20)
[2024-02-14 10:20] LABS: Alanine Aminotransferase 15 U/L (6-35); Albumin Level 4.5 g/dL (3.5-5.1); Alkaline Phosphatase 84 U/L (38-126); Anion Gap 8 mmol/L (4-12); Aspartate Amino Transferase 30 U/L (14-36); Bilirubin,Total 0.6 mg/dL (0.2-1.3); Blood Urea Nitrogen 19 mg/dL (7-17); CRP < 0.5 mg/dL (<1.0); Calcium 9.7 mg/dL (8.4-10.2); Carbon Dioxide 29 mmol/L (22-30); Chloride 103 mmol/L (98-107); Estimated Glomerular Filt Rate 50; Glucose 90 mg/dL (65-110); Sodium 140 mmol/L (137-145)
[2024-02-14 10:21] LABS: Complement C3 107 mg/dL (88-165); Rheumatoid Factor < 12.0 IU/ML (<12)
[2024-02-14 10:36] LABS: Free T4 Free Thyroxine 1.35 ng/mL (0.78-2.19)
[2024-02-14 10:43] LABS: Thyroid Stimulating Hormone 0.856 uIU/mL (0.465-4.680)
[2024-02-16 14:58] LABS: Cyclic Citrullinated Peptide <16 UNITS
[2024-02-16 15:12] LABS: Anti Centromere B Antibody <1.0 NEG AI (<1.0 NEG); SS-A <1.0 NEG AI (<1.0 NEG); SS-B <1.0 NEG AI (<1.0 NEG); Scleroderma 70 Antibody <1.0 NEG AI (<1.0 NEG)
[2024-02-18 01:38] LABS: Endomysial Ab (IgA) Screen NEGATIVE (NEGATIVE)
[2024-02-19 10:04] LABS: Endomysial Additional Testing Not Indicated
[2024-02-19 19:18] LABS: Thyroglobulin 5.5 ng/mL; Thyroglobulin Antibodies 1 IU/mL (< or = 1); Thyroid Peroxidase Antibodies 34 IU/mL (<9)
[2024-02-19 21:03] LABS: HLA B27 NEGATIVE (NEGATIVE)
[2024-02-22 08:40] LABS: Anti Nuclear Antibody Pattern Nuclear, Homogeneous
== END 2024-02-14 08:52 | disposition home or self-care (01) ==
PROVIDERS: PCP Family Medicine; Referring Provider Physician Assistant; Visit Provider Internal Medicine
DX: M25.50 Pain in unspecified joint (principal); Z79.899 Other long term (current) drug therapy
CPT/HCPCS: 36415; 80053; 81003; 84432; 84439; 84443; 85025; 85652; 86038; 86039; 86140; 86160; 86200; 86225; 86235; 86255; 86376; 86430; 86800; 86812

== ENCOUNTER 2024-03-19 09:59 | Outpatient (CLI) | payer OTHER, SELFPAY ==
[2024-03-19 10:33] LABS: Add Urine Microscopic? YES; Appearance Urine Clear (Clear); Bacteria Urine 4+ /hpf; Bilirubin Urine Negative (Negative); Blood Urine Negative (Negative); Color Urine Yellow (Yellow); Glucose Urine UA Negative (Negative); Ketones Urine Negative (Negative); Leukocyte Esterase Ur 2+ LEU/UL (Negative); Nitrate Urine Positive (Negative); Non Pathogenic Casts 0-2; Protein Urine Negative (Negative); RBC Urine 0-2 /hpf (0-2); Specific Grav Ur 1.009 (1.001-1.035); Squamous Epithelial Cell Urine None Seen /hpf (Few); Urobilinogen Urine 0.2 mg/dL (<2.0); WBC Urine 21-50 /hpf (0-3)
== END 2024-03-19 10:00 | disposition home or self-care (01) ==
LOC: ANHLAB 10:02
PROVIDERS: PCP Family Medicine; Visit Provider Physician Assistant
DX: R30.0 Dysuria (principal)
CPT/HCPCS: 81001; 87086; 87186

== ENCOUNTER 2024-04-10 15:28 | Outpatient (CLI) | payer OTHER, SELFPAY ==
[2024-04-10 16:13] LABS: Add Urine Microscopic? YES; Appearance Urine Clear (Clear); Bacteria Urine None Seen /hpf; Bilirubin Urine Negative (Negative); Blood Urine Negative (Negative); Color Urine Yellow (Yellow); Glucose Urine UA Negative (Negative); Ketones Urine Negative (Negative); Leukocyte Esterase Ur 2+ LEU/UL (Negative); Nitrate Urine Negative (Negative); Non Pathogenic Casts 0-2; Protein Urine Negative (Negative); RBC Urine 0-2 /hpf (0-2); Specific Grav Ur 1.008 (1.001-1.035); Squamous Epithelial Cell Urine None Seen /hpf (Few); Urobilinogen Urine 0.2 mg/dL (<2.0); WBC Urine 21-50 /hpf (0-3); pH Urine 5.5 (5.0-9.0)
--- OUTSIDE RECORDS SUMMARY | 2024-04-12 02:56 | XMS_ITS | Clinical Summary ---
Author Organization [facility] Address [address], [address] [address] Phone Care Team Providers Care Reducing Salon Attendant Name Role Phone Dilia Hahn MD, Lawrence Primary Care Provider +1- [phone] Allergies Active Allergy Reactions Criticality Noted Date Comments Codeine Unknown 11/16/2017 Morphine Unknown 11/16/2017 Tetracycline Unknown 11/16/2017 Medications levothyroxine (SYNTHROID) 75 MCG Tablet Take 75 mcg by mouth daily. Active calcium 600 MG Tablet Take 600 mg by mouth daily. Active Cholecalciferol (VITAMIN D3) 5000 units TABLET DISPERSIBLE Take by mouth. Active aspirin EC 81 MG Tablet Delayed Response Take 81 mg by mouth daily. Active Omeprazole Magnesium (PRILOSEC OTC) 20 MG Tablet Delayed Response Take 20 mg by mouth daily. Active omeprazole (PRILOSEC) 40 MG CAPSULE DELAYED RELEASE Take 1 Cap by mouth daily. 90 Cap 3 03/22/2018 Active Active Problems No known active problems Family History Medical History Relation Name Comments Alzheimer's Disease Father Heart Disease Father Alzheimer's Disease Mother Breast Cancer Mother Heart Disease Sister Relation Name Status Comments Father Mother Sister Social History Tobacco Use Types Packs/Day Years Used Date Smoking Tobacco: Never Smokeless Tobacco: Never Alcohol Use Standard Drinks/Week Comments Yes 0 (1 standard drink = 0.6 oz pur e alcohol) former social drinker Comments Unknown Sex and Gender Information Value Date Recorded Sex Assigned at Not on file Legal Sex Female 9:13 PM CDT Gender Identity Not on file Sexual Orientation Not on file Plan of Treatment Health Maintenance Due Date Last Done Comments Hepatitis C Virus (HCV) Screening 1961 TdaP Immunization 1961 Pap Smear 1982 Cervical Cancer Screening (CCS) 01/01/1992 HPV/Cotest 01/01/1992 Mammogram 2001 Colonoscopy 2006 Colorectal Cancer Screening 2006 Cologuard 01/01/2012 Immunochemical Fecal Occult Blood 01/01/2012 Pneumococcal Immunization (5 0+ years) (1 of 1 - PCV) 01/01/2012 Zoster Immunization (1 of 2) 01/01/2012 Influenza Immunization (#1) 2023 SARS-COV-2 Immunization (1 - 2023-25 season) 2023 Respiratory Syncytial Virus (RSV) Immunization (Adult) (1 - 1-dose 75+ series) 2036 Hepatitis B Immunization Aged Out No longer eligible based on patient's age to complete this topic Meningococcal Immunization (ACWY) Aged Out No longer eligible based on patient's age to complete this topic Pneumococcal Immunization Combined Aged Out No longer eligible based on patient's age to complete this topic Rotavirus Immunization Aged Out No lo nger eligible based on patient's age to complete this topic Insurance Care Teams Reducing Salon Attendant Relationship Specialty Start Date End Date Lawrence Dobbs MD [address] [address] PCP - General Family Medicine 09/25/17
== END 2024-04-10 15:29 | disposition home or self-care (01) ==
LOC: ANHLAB 15:30
PROVIDERS: PCP Family Medicine; Visit Provider Physician Assistant
DX: R30.0 Dysuria (principal)
CPT/HCPCS: 81001; 87077; 87086; 87186

== ENCOUNTER 2024-04-23 11:00 | Outpatient (RCR) | payer OTHER, SELFPAY ==
[2024-02-02 00:04] VITALS: BP_SYST 130
[2024-02-07 16:40] VITALS: BP_SYST 130
--- NOTE | 2024-02-14 11:22 | PTOPPROG ---
Assessment and note entered by Stephany Bernal, PT Evaluation Information Assessment Status Progress Diagnosis z48.89 ICD-10 Condition Codes (PT) M54.6,Weakness R53.1,M25.511 Onset October 06, 2023 Subjective Information Reports overall is doing really but has teeny tiny things here and there that are problematic. Reaching out to the side is still tight. Reports would like to get back to normal work. Reports had some increased popping this morning. Reports is a 0/10 most of the time. 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 Assessment PT Clinical Summary Pt has attended therapy consistently for her shoulder post rotator cuff surgery. She has made significant progress in all areas including passive and active ROM, strength, and pain reduction. She does cont to have some crepitus anterior shoulder that has lessened over therapy. Also demos some mild continued scapulohumeral dyskinesia though is pain free with this. Pt has yet to return her full activity level at work, it appears she would be able to return to such activities and regain endurance. Pt would benefit form therapy to continue focusing on strengthening and scapulohumeral patterning pending ortho follow-up consult. Plan of Care Interventions Therapeutic Exercise,Patient/Caregiver Educati, Manual Therapy,Neuro Re-education,Therapeutic Activities,Hot Pack/Cold Pack,Electrical Stimulation Other Interventions IASTM, Taping PT Services Indicated Yes Treatment Frequency and 1x weekly x 6 visits Duration These treatments will address the objective and functional deficits as defined above. The patient will be advanced safely and appropriately in order for the patient to progress towards his/her prior level of function. Additional exercises will be introduced and as well as a comprehensive home exercise program upon discharge, if needed, ?to ensure carryover of functional gains achieved in the clinic. This treatment plan has been reviewed and agreement upon by the patient.
--- NOTE | 2024-03-01 15:50 | OTOPEVAL1 ---
Assessment and note entered by Dirk Austin, ROLANDO/Laurence, TANVIT OT Evaluation Information 03/01/24 Assessment Status Evaluation Diagnosis Pain in left wrist ICD-10 Condition Codes (OT) M25.532 Subjective Information Pt diagnosis includes left wrist TFCC tear and ECU tendonitis. She has been experiencing left wrist pain since a fall in July 2023. She reports no pain at rest and intermittent 2/10 pain with particular wrist motions with use. She states overall she is doing well, she just wants to learn what to avoid and what exercises she can do to help. MRI report: 1. Complex tear of the triangular fibrocartilage complex. 2. Perforation of the central membranous component of the scapholunate ligament with normal appearance to the more physiologically significant dorsal and volar components. 3. Polyarticular osteoarthritis, severe at the first carpometacarpal joint, moderate severity at the triscaphe joint and otherwise mild. 4. Mild extensor carpi ulnaris tenosynovitis, tendinopathy and partial-thickness split tear. Reported Pain Level Pain Score 0: Self Report Assessment OT Clinical Summary Patient referred to OT with left wrist pain with dx of TFCC tear and ECU tendonitis. She presents with minimal pain and intermittent pain with use. Educated on activities to avoid, wrist brace for heavier activities, ROM, and light wrist strengthening. She performed wrist strengthening today with 2 lb. free weight without pain. Patient to complete HEP x2 weeks and follow up for re- assessment. Plan of Care Interventions Therapeutic Exercise,Manual Therapy,Hot Pack/Cold Pack,Ultrasound,Paraffin OT Services Indicated Yes Treatment Frequency and 0-1x/week for 2 visits Duration These treatments will address the objective and functional deficits as defined above. The patient will be advanced safely and appropriately in order for the patient to progress towards his/her prior level of function. Additional exercises will be introduced and as well as a comprehensive home exercise program upon discharge, if needed, ?to ensure carryover of functional gains achieved in the clinic. This treatment plan has been reviewed and agreement upon by the patient.
--- NOTE | 2024-03-18 16:01 | OTOPDC ---
Assessment and note entered by Dirk Austin, OTR/Laurence, FARTUN OT D/C Summary 03/18/24 Assessment Status Discharge Diagnosis Pain in left wrist Subjective Information Pt diagnosis includes left wrist TFCC tear and ECU tendonitis. She has been experiencing left wrist pain since a fall in July 2023. She continues to report no pain at rest. 3/10 intermittent pain with particular wrist motions with use. Intermittent pains occur 1-3 times a day . She has been avoiding any activities that cause stress to the TFCC area (weight bearing through an extended wrist and resisted forearm rotation). She reports she hasn't done the strengthening exercises that were issued at the initial evaluation because they irritated her wrist. She reports she did not get a wrist brace because she would not be able to do her chores with it on. Reported Pain Level Pain Score 0: Self Report Additional Pain Score Comments No pain at rest, 3/10 intermittent wrist pain, ulnar side at ECU insertion Assessment OT Clinical Summary Patient referred to OT with left wrist pain with dx of TFCC tear and ECU tendonitis. She attended the initial eval and was issued HEP, which she reports she hasn't really been doing due to the exercises causing a flair up in her pain. Overall she is reporting she is doing well managing her pain by avoiding activities that cause pain. 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 She reports she cannot wear a brace due to it getting too dirty. Today I was unable to recreate her pain with TFCC stress test or ECU MMT. Reviewed exercises, precautions, and recommendations. No further skilled OT indicated at this time. Plan of Care OT Services Indicated No
[2024-04-23 11:06] VITALS: BP_SYST 150
--- NOTE | 2024-04-23 12:19 | PTOPPROG ---
Assessment and note entered by Demetria Rizvi, SPT Evaluation Information Assessment Status Progress Diagnosis z48.89 ICD-10 Condition Codes (PT) Pain in right shoulder M25.511,Weakness R53.1 Other ICD-10 Condition Codes ( M54.6, PT) Onset 10/06/23 Subjective Information Pt. reports that she continues to notice tightness in the right shoulder since having rotator cuff surgery in September. She describes minimal pain. Pt reports popping and clicking in the L shoulder when doing certain shoulder movements and reports 1/10 for L shoulder pain. pt reports discomfort with prolonged periods of movement with the arm. Assessment PT Clinical Summary Pt seen s/p right shoulder rotator cuff surgery from september 2023. Pt demonstrates impaired resting scapular mechanics, tightness in pec major, and decreased activation of scapular stabilizing muscles. Pt presents with improved passive and active shoulder range of motion and strength. Pt would benefit from continuing physical therapy to focus on strengthen scapular stabilizing muscles and improve scapular mechanics and accomplish new goals which were established today. Plan of Care Interventions Electrical Stimulation,Hot Pack/Cold Pack,Manual Therapy,Neuro Re-education,Patient/Caregiver Education,Therapeutic Activities,Therapeutic Exercise Other Interventions IASTM, Taping PT Services Indicated Yes Treatment Frequency and 1x/week x 8 visits Duration These treatments will address the objective and functional deficits as defined above. The patient will be advanced safely and appropriately in order for the patient to progress towards his/her prior level of function. Additional exercises will be introduced and as well as a comprehensive home exercise program upon discharge, if needed, ?to ensure carryover of functional gains achieved in the clinic. This treatment plan has been reviewed and agreement upon by the patient.
--- NOTE | 2024-04-23 12:24 | PCPTNOTE ---
I reviewed the License Pending Therapist's documentation and agree with the findings.
--- NOTE | 2024-04-30 11:06 | PCPTNOTE ---
This treatment is being continued on visit number [id number]. Please see documentation on both accounts to view progress. Completed interventions, outcomes, and problems have been marked as Inactive to facilitate the copying of the Care plan routine for recurring accounts.
== END 2024-04-30 10:29 | disposition still patient (30) ==
LOC: ANHHIPT 11:00
PROVIDERS: PCP Family Medicine; Referring Provider Physician Assistant Surgical; Visit Provider Orthopaedic Surgery
DX: Z48.89 Encounter for other specified surgical aftercare (principal); M54.6 Pain in thoracic spine; M25.511 Pain in right shoulder; R53.1 Weakness
CPT/HCPCS: 97110; 97112; 97140; 97165

== ENCOUNTER 2024-05-07 10:09 | Outpatient (CLI) | payer OTHER, SELFPAY ==
--- OUTSIDE RECORDS SUMMARY | 2024-05-07 10:22 | XMS_ITS ---
Author Organization [facility] Address [address] [place], [place] [address] Care Team Providers Care Catalyst Plant Supervisor Name Role Phone ANGELINA DAVISON Primary Care Provider Unavail Gina Edwards Unavailable [phone] Encounters Encounter Location Date Provider Diagnosis [facility] [address], [address] [place], [place] [id number] 02/28/2024 Gina Morton PLAN OF TREATMENT Next Appt Details Provider Name:Clarita Rice, 0 08/28/2024 01:30:00 PM, [address], [address], [place], [place], [id number],
--- OUTSIDE RECORDS SUMMARY | 2024-05-07 10:23 | XMS_ITS ---
Author Organization [facility] Address [address] [place], [place] [phone] Care Team Providers Care Ash Worker Name Role Phone ANGELINA DAVISON Primary Care Provider Unavail Gina Edwards Unavailable [phone] Encounters Encounter Location Date Provider Diagnosis [facility] [address], [facility] [address] [place], [place] [id number] 03/27/2024 Gina Morton PLAN OF TREATMENT Next Appt Details Provider Name:Clarita Rice, 0 08/28/2024 01:30:00 PM, [address], [address], [place], [place], [id number],
--- OUTSIDE RECORDS SUMMARY | 2024-05-07 10:23 | XMS_ITS ---
Author Organization [facility] Address [address] [place], [place] [address] Care Team Providers Care Glove Sewer Name Role Phone ANGELINA DAVISON Primary Care Provider Unavail able Gina Morton Unavailable [phone] Viktoriya Kaur Unavailable Encounters Encounter Location Date Provider Diagnosis [facility] [address], [address] [place], [place] [id number] 02/29/2024 Viktoriya Kaur PLAN OF TREATMENT Next Appt Details Provider Name:Clarita Rice, 0 08/28/2024 01:30:00 PM, [address], [address], [place], [place], [id number],
--- OUTSIDE RECORDS SUMMARY | 2024-05-07 10:23 | XMS_ITS | Clinical Summary ---
Author Organization [facility] Address [address], [address] [address] Phone Care Team Providers Care Plant Pathologist Name Role Phone Dilia Hahn MD, Lawrence Primary Care Provider +1- [phone] Allergies Active Allergy Reactions Criticality Noted Date [...] patient's age to [place] [address] Care Teams Plant Pathologist Relationship Specialty Start Date End Date Lawrence Dobbs MD [address] [address] PCP - General Family Medicine 09/25/17
[2024-05-07 12:09] LABS: Add Urine Microscopic? YES; Appearance Urine Clear (Clear); Bacteria Urine None Seen /hpf; Bilirubin Urine Negative (Negative); Blood Urine Negative (Negative); Color Urine Yellow (Yellow); Glucose Urine UA Negative (Negative); Ketones Urine Negative (Negative); Leukocyte Esterase Ur 1+ LEU/UL (Negative); Nitrate Urine Negative (Negative); Non Pathogenic Casts 0-2; Protein Urine Negative (Negative); RBC Urine 0-2 /hpf (0-2); Specific Grav Ur 1.008 (1.001-1.035); Squamous Epithelial Cell Urine None Seen /hpf (Few); Urobilinogen Urine 0.2 mg/dL (<2.0); pH Urine 7.5 (5.0-9.0)
== END 2024-05-07 10:10 | disposition home or self-care (01) ==
LOC: ANHLAB 10:11
PROVIDERS: PCP Family Medicine; Visit Provider Student in an Organized Health Care Education/Training Program
DX: R30.0 Dysuria (principal)
CPT/HCPCS: 81001; 87086

== ENCOUNTER 2024-06-14 08:00 | Outpatient (RCR) | payer OTHER, SELFPAY ==
[2024-04-30 10:29] VITALS: BP_SYST 130; BP_SYST 150
[2024-04-30 11:09] VITALS: BP_SYST 150
--- NOTE | 2024-06-14 10:21 | PTOPDC ---
Assessment and note entered by Stephany Beranl, PT Evaluation Information Assessment Status Discharge Diagnosis z48.89 ICD-10 Condition Codes (PT) Pain in right shoulder M25.511,Weakness R53.1 Other ICD-10 Condition Codes ( M54.6, PT) Onset 10/06/23 Subjective Information Pt reports can do anything she wants to without pain but still has popping in her shoulder. Notes has popping with external rotation in front of shoulder. Reported Pain Level Pain Score 0: Self Report Assessment PT Clinical Summary Pt has attended therapy consistently for additional ROM, strengthening, and shoulder kinematics. She does show improved active ROM and strength RUE especially. She continues to show bilat upward tilted scapula, anteriorly shifted humerus lacho, increased popping/snapping bicipital groove without discomfort. Pt reports she can do everything she needs to without discomfort, notes popping with brushing her hair and internal/ external rotation at neutral. All her goals for therapy have been met. Pt is agreeable to discharge for max benefit currently being met with understanding to follow up with ortho as needed. Plan of Care PT Services Indicated No
== END 2024-06-14 13:18 | disposition home or self-care (01) ==
LOC: ANHHIPT 08:00
PROVIDERS: PCP Family Medicine; Referring Provider Physician Assistant Surgical; Visit Provider Orthopaedic Surgery
DX: Z48.89 Encounter for other specified surgical aftercare (principal); M54.6 Pain in thoracic spine; M25.511 Pain in right shoulder; R53.1 Weakness
CPT/HCPCS: 97110; 97112; 97140; 97750

== ENCOUNTER 2024-08-29 14:36 | Outpatient (CLI) | payer OTHER, SELFPAY ==
[2024-08-29 15:05] LABS: Basophils Absolute Auto 0.1 K/mm3 (0.0-0.1); Basophils Percent Auto 0.9 % (0.2-1.2); Eosinophils Absolute Auto 0.1 K/mm3 (0-0.3); Eosinophils Percent Auto 1.5 % (0-4.4); Hematocrit 38.3 % (37.0-47.0); Hemoglobin 12.6 g/dL (12.0-15.0); Immature Granulocyte Absolute 0.01 K/mm3 (0.00-0.031); Immature Granulocyte Percent A 0.2 % (0-0.5); Lymphocytes Absolute Auto 2.36 K/mm3 (0.9-3.2); Lymphocytes Percent Auto 40.5 % (18.3-44.2); Mean Corpuscular HGB Conc 32.9 g/dl (32-36); Mean Corpuscular Hemoglobin 27.2 pg (26-34); Mean Corpuscular Volume 82.5 fl (80-100); Mean Platelet Volume 10.3 fl (7.4-10.4); Monocytes Absolute Auto 0.4 K/mm3 (0.1-0.6); Monocytes Percent Auto 6.3 % (2.6-8.5); Neutrophils Percent Auto 50.6 % (45.5-73.1); Platelet Count Result 252 k/mm3 (150-375); Red Blood Count 4.64 M/mm3 (4.2-5.4); Red Cell Distribution Width 13.4 % (11.5-14.5); White Blood Count 5.8 K/mm3 (4.5-10.0)
--- OUTSIDE RECORDS SUMMARY | 2024-08-29 15:17 | XMS_ITS ---
Author Organization [facility] Address [address] [place], [place] [id number] Care Team Providers Care Supervisor Burling And Joining Name Role Phone ANGELINA DAVISON Primary Care Provider Unavail Gina Edwards Unavailable [phone] Encounters Encounter Location Date Provider Diagnosis [facility] [address], [address] [place], [place] [id number] 03/27/2024 Gina Morton PLAN OF TREATMENT Next Appt Details Provider Name:Clarita Rice, 1 04/29/2024 11:20:00 AM, [address] [facility], [address], [place], [place], [id number],
--- OUTSIDE RECORDS SUMMARY | 2024-08-29 15:17 | XMS_ITS | Clinical Summary ---
Author Organization [facility] Address [address], [address] [address] Phone Care Team Providers Care Microstrategy Reports Developer Name Role Phone Dilia Hahn MD, Lawrence Primary Care Provider +1- [phone] Allergies Active Allergy Reactions Criticality Noted Date [...] to complete this topic Insurance Care Teams Microstrategy Reports Developer Relationship Specialty Start Date End Date Lawrence Dobbs MD [address] [address] PCP - General Family Medicine 09/25/17
--- OUTSIDE RECORDS SUMMARY | 2024-08-29 15:17 | XMS_ITS | Patient Health Record ---
Author Organization [facility] Address [address] [place], [place] [address] Care Team Providers Care Jumpbasting Canvas Baster Name Role Phone SAMAN ANGELINA Primary Care Provider Unavail able Gina Morton Unavailable [phone] Viktoriya Kaur Unavailable Clarita Rice Unavailable [phone] ALLERGIES Allergen (clinical drug ingredient) Drug/Non Drug Allergy documented on EMR Reaction Allergy Type Onset Date Status morphine morphine itching Drug Allergy Active tetracycline tetracycline vomiting Drug Allergy A ctive codeine codeine itching Drug Allergy Active nitrofurantoin, macrocrystals / nitrofurantoin, monohydrate Macrobid hives Drug Allergy Active REASON FOR REFERRAL No Information MEDICATIONS Medication SIG (Take, Route, Frequency, Duration) Notes Start Date End Date Status asprin 81mg 1 tab once a day A ctive levothyroxine 75 mcg (0.075 mg) 1 tab(s) orally once a day Active curcumin Turmeric Active MiraLax PRN Active Magnesium 400 mg Active omeprazole 40 mg 1 cap(s) orally once a day Active Calcium Citrate + D3 600mg Active liothyronine 5 mcg 1 tab(s) orally once a day Active multivitamin Active AZO Cranberry Urinary Tract Health Caplet, 20 Acti ve Vitamin D3 Active Vitamin D 5000 IU Active PROBLEMS Problem Type ICD Code Onset Dates Problem Status W/U Status Risk SNOMED Code Notes Problem Raynaud's phenomenon without gangrene (I73.00) Active confirmed 494504055 Problem Other detention (current) drug therapy (Z79.899) Active confirmed 766884070 VITAL SIGNS Heart Rate 67 /min 08/28/2024 Blood pressure diastolic 73 mm Hg 08/28/2024 Height 64 in 08/28/2024 Blood pressure systolic 132 mm Hg 08/28/2024 Weight 166 lbs 08/28/2024 BMI 28.49 kg/m2 08/28/2024 Encounters Encounter Location Date Provider [facility] [address] [id number] 02/29/2024 Viktoriya Kaur [facility] [address] [place] [address], [address] [id number] 02/28/2024 Clarita Fajic Polyarthralgia M25.5 0 ; Xerostomia K11.7 ; Raynaud's phenomenon without gangrene I73.00 ; Myalgia M79.10 and Other detention (current) drug therapy Z79.899 [facility] [address] [place] [address], [address] [id number] 02/09/2024 Gina Degavinendorf Polyarthralgia M25.5 0 ; Xerostomia K11.7 ; Raynaud's phenomenon without gangrene I73.00 ; Myalgia M79.10 and Other detention (current) drug therapy Z79.899 [facility], [address] [id number] 08/28/2024 Clarita Fajic Polyarthralgia M25.5 0 ; Xerostomia K11.7 ; Raynaud's phenomenon without gangrene I73.00 ; Myalgia M79.10 and Other terminal press operator (current) drug therapy Z79.899 [facility] [address] [place] [address], [address] [id number] 02/05/2024 Gina Morton [facility] [address] [place] [address], [address] [id number] 02/09/2024 Gina Morton [facility] [address] [place] [address], [address] [id number] 02/28/2024 Gina Morton [facility] [address] [place] [address], [address] [place], [place] [id number] 03/27/2024 Gina Morton ASSESSMENTS Encounter Date Diagnosis Assessment Notes Treatment Notes Treatment Clinical Notes Section Notes 02/28/2024 Xerostomia (ICD-10 - K11.7) Several complaints- migratory joint pain, dry mouth and raynauds- hx of possible CTD. Repeat labs with positive BARNEY and TPO Ab positive, which could be the cause of positive BARNEY. BARNEY panel and DsDNA negative with normal complement levels. No evidence of CTD at this time. Keep warm. Review Dr. Gil's records. Repeat labs in 6 months. 02/28/2024 Polyarthralgia (ICD-10 - M25.50) Several complaints- migratory joint pain, dry mouth and raynauds- hx of possible CTD. Repeat labs with positive BARNEY and TPO Ab positive, which could be the cause of positive BARNEY. BARNEY panel and DsDNA negative with normal complement levels. No evidence of CTD at this time. Keep warm. Review Dr. Gil's records. Repeat labs in 6 months. 02/09/2024 Xerostomia (ICD-10 - K11.7) Several complaints- migratory joint pain, dry mouth and raynauds- hx of possible CTD. Re-evaluate labs. Keep warm. Review Dr. Gil's records. Reviewed patients health history forms 02/09/2024 Polyarthralgia (ICD-10 - M25.50) Several complaints- migratory joint pain, dry mouth and raynauds- hx of possible CTD. Re-evaluate labs. Keep warm. Review Dr. Gil's records. Reviewed patients health history forms 08/28/2024 Xerostomia (ICD-10 - K11.7) Several complaints- migratory joint pain, dry mouth and raynauds- hx of possible CTD. Repeat labs with positive BARNEY and TPO Ab positive, which could be the cause of positive BARNEY. BARNEY panel and DsDNA negative with normal complement levels. No evidence of CTD at this time. Keep warm. Re-evaluate labs. 08/28/2024 Polyarthralgia (ICD-10 - M25.50) Several complaints- migratory joint pain, dry mouth and raynauds- hx of possible CTD. Repeat labs with positive BARNEY and TPO Ab positive, which could be the cause of positive BARNEY. BARNEY panel and DsDNA negative with normal complement levels. No evidence of CTD at this time. Keep warm. Re-evaluate labs. 02/28/2024 Raynaud's phenomenon without gangrene (ICD-10 - I73.00) Several complaints- migratory joint pain, dry mouth and raynauds- hx of possible CTD. Repeat labs with positive BARNEY and TPO Ab positive, which could be the cause of positive BARNEY. BARNEY panel and DsDNA negative with normal complement levels. No evidence of CTD at this time. Keep warm. Review Dr. Gil's records. Repeat labs in 6 months. 02/09/2024 Raynaud's phenomenon without gangrene (ICD-10 - I73.00) Several complaints- migratory joint pain, dry mouth and raynauds- hx of possible CTD. Re-evaluate labs. Keep warm. Review Dr. Gil's records. Reviewed patients health history forms 08/28/2024 Raynaud's phenomenon without gangrene (ICD-10 - I73.00) Several complaints- migratory joint pain, dry mouth and raynauds- hx of possible CTD. Repeat labs with positive BARNEY and TPO Ab positive, which could be the cause of positive BARNEY. BARNEY panel and DsDNA negative with normal complement levels. No evidence of CTD at this time. Keep warm. Re-evaluate labs. 02/28/2024 Myalgia (ICD-10 - M79.10) Several complaints- migratory joint pain, dry mouth and raynauds- hx of possible CTD. Repeat labs with positive BARNEY and TPO Ab positive, which could be the cause of positive BARNEY. BARNEY panel and DsDNA negative with normal complement levels. No evidence of CTD at this time. Keep warm. Review Dr. Gil's records. Repeat labs in 6 months. 02/09/2024 Myalgia (ICD-10 - M79.10) Several complaints- migratory joint pain, dry mouth and raynauds- hx of possible CTD. Re-evaluate labs. Keep warm. Review Dr. Gil's records. Reviewed patients health history forms 08/28/2024 Myalgia (ICD-10 - M79.10) Several complaints- migratory joint pain, dry mouth and raynauds- hx of possible CTD. Repeat labs with positive BARNEY and TPO Ab positive, which could be the cause of positive BARNEY. BARNEY panel and DsDNA negative with normal complement levels. No evidence of CTD at this time. Keep warm. Re-evaluate labs. 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 Repeat labs with positive BARNEY and TPO Ab positive, which could be the cause of positive BARNEY. BARNEY panel and DsDNA negative with normal complement levels. No evidence of CTD at this time. Keep warm. Review Dr. Gil's records. Repeat labs in 6 months. 02/09/2024 Other terminal press operator (current) drug therapy (ICD-10 - Z79.899) Several complaints- migratory joint pain, dry mouth and raynauds- hx of possible CTD. Re-evaluate labs. Keep warm. Review Dr. Gil's records. Reviewed patients health history forms 08/28/2024 Other terminal press operator (current) drug therapy (ICD-10 - Z79.899) Several complaints- migratory joint pain, dry mouth and raynauds- hx of possible CTD. Repeat labs with positive BARNEY and TPO Ab positive, which could be the cause of positive BARNEY. BARNEY panel and DsDNA negative with normal complement levels. No evidence of CTD at this time. Thomas villafuerte. Re-evaluate labs. PLAN OF TREATMENT Pending Test Test Name Order Date CPK Total,Serum 08/28/2024 Complement C4, Serum 02/09/2024 Complement C4, Serum 08/28/2024 T4 Free 02/09/2024 Aldolase 08/28/2024 TSH 02/09/2024 CBC With Differential/Platelet 5 CBC With Differential/Platelet 4 Sed Rate - Westergren 08/28/2024 Sed Rate - Westergren 02/09/2024 Complement C3, Serum 08/28/2024 Complement C3, Serum 02/09/2024 Rheumatoid Arthritis Factor 08/28/2024 Rheumatoid Arthritis Factor 02/09/2024 C-Reactive Protein, Quant 08/28/2024 C-Reactive Protein, Quant 02/09/2024 Thyroid Peroxidase and Antithyroglobunli n Antibodies 08/28/2024 Thyroid Peroxidase and Antithyroglobunli n Antibodies 02/09/2024 HLA B 27 Disease Association 02/09/2024 CCP IgG Antibodies 02/09/2024 CCP IgG Antibodies 08/28/2024 Comp. Metabolic Panel (14) 08/28/2024 Comp. Metabolic Panel (14) 02/09/2024 BARNEY Panel (BARNEY+JUDY+Scl 70+SjoSSA+SjoSSB) 08/28/2024 BARNEY Panel (BARNEY+JUDY+Scl 70+SjoSSA+SjoSSB) 02/09/2024 Centromere B Antibodies 02/09/2024 DS DNA-CRITHIDIA IFA W/REFLEX TO TITER-L [facility] 08/28/2024 DS DNA-CRITHIDIA IFA W/REFLEX TO TITER-L [facility] 02/09/2024 Urinalysis, Complete 02/09/2024 Next Appt Details Provider Name:Clarita Rice, 1 04/29/2024 11:20:00 AM, [address] [facility], [address], [place], [place], [id number], Insurance Providers Payer Name Payer Address Payer Phone Subscriber Number Group Number Insured Name Patient Relationship to Insured Coverage Start Date Coverage End Date COUNT INCLUDES THE [facility] [address] [address] [place] [address] [id number] Georgina Fisher Self - patient is the insured 4 MEDICAL (GENERAL) HISTORY Medical History History ICD Code Necrotizing pancreatitis change in moles diabetes anemia Ringing in ears difficulty swallowing dizziness thyroid disease poor circulation jaundice weight loss Kidney stones Hot Flashes Nausea frequent urination kidney infection Surgical History Surgery Date(Month/Year) finger surgery rotator cuff tear repair ERCPs cholecystectomy C section foot surgery(s) left wrist fracture
--- OUTSIDE RECORDS SUMMARY | 2024-08-29 15:17 | XMS_ITS ---
Author Organization [facility] Address [address] [facility] [address] [facility] [address] [place], [place] [id number] Care Team Providers Care Senior Living Advisor Name Role Phone ANGELINA DAVISON Primary Care Provider Unavail able Gina oMrton Unavailable [phone] Clarita Rice Unavailable [phone] ALLERGIES Allergen (clinical drug ingredient) Drug/Non Drug [...] Provider Diagnosis [facility] [address] [facility], [address] [place], [place] [id number] 08/28/2024 Clarita Rice Polyarthralgia M25.5 0 ; Xerostomia K11.7 ; Raynaud's phenomenon without gangrene I73.00 ; Myalgia M79.10 and Other snf (current) drug therapy Z79.899 ASSESSMENTS Encounter Date [...] time. Keep warm. Re-evaluate labs. 08/28/2024 Other snf (current) drug therapy (ICD-10 - Z79.899) Several [...] Rice, 1 04/29/2024 11:20:00 AM, [address] [facility], [address], [place], [place], [id number], Progress Notes * Examination Category Sub-Category Detail [...]
--- OUTSIDE RECORDS SUMMARY | 2024-08-29 15:18 | XMS_ITS ---
Author Organization [facility] Address [address] [place], [place] [phone] Care Team Providers Care Loan Underwriter Name Role Phone ANGELINA DAVISON Primary Care Provider Unavail able Gina Morton Unavailable [phone] Viktoriya Kaur Unavailable Encounters Encounter Location Date Provider Diagnosis [facility] [address] [facility], [address] [place], [place] [id number] 02/29/2024 Viktoriya Kaur PLAN OF TREATMENT Next Appt Details Provider Name:Clarita Rice, 1 04/29/2024 11:20:00 AM, [address] [facility], [address], [place], [place], [phone],
[2024-08-29 15:19] LABS: Alanine Aminotransferase 20 U/L (6-35); Albumin Level 4.4 g/dL (3.5-5.1); Alkaline Phosphatase 95 U/L (38-126); Anion Gap 9 mmol/L (4-12); Aspartate Amino Transferase 35 U/L (14-36); Bilirubin,Total 0.4 mg/dL (0.2-1.3); Blood Urea Nitrogen 20 mg/dL (7-17); CRP < 0.5 mg/dL (<1.0); Calcium 9.3 mg/dL (8.4-10.2); Carbon Dioxide 24 mmol/L (22-30); Chloride 105 mmol/L (98-107); Creatine Kinase 155 U/L (30-135); Estimated Glomerular Filt Rate 35; Glucose 98 mg/dL (65-110); Potassium 3.8 mmol/L (3.4-5.0); Sodium 138 mmol/L (137-145); Total Protein 7.7 g/dL (6.3-8.2)
[2024-08-29 15:26] LABS: Complement C3 106 mg/dL (88-165); Rheumatoid Factor < 12.0 IU/ML (<12)
[2024-08-29 15:37] LABS: Erythrocyte Sedimentation Rate 17 mm/hr (0-20)
[2024-08-31 03:09] LABS: SM Antibody <1.0 NEG AI (<1.0 NEG); SM/RNP Antibody <1.0 NEG AI (<1.0 NEG); SS-A <1.0 NEG AI (<1.0 NEG); SS-B <1.0 NEG AI (<1.0 NEG); Scleroderma 70 Antibody <1.0 NEG AI (<1.0 NEG)
[2024-09-02 13:09] LABS: Aldolase 4.2 U/L (< OR = 8.1)
[2024-09-02 15:13] LABS: Thyroid Peroxidase Antibodies 104 IU/mL (<9)
[2024-09-02 15:59] LABS: Cyclic Citrullinated Peptide <16 UNITS
[2024-09-03 13:39] LABS: Anti Nuclear Antibody Pattern Nuclear, Speckled; Anti Nuclear Antibody Titer 1:40 titer
== END 2024-08-29 14:37 | disposition home or self-care (01) ==
PROVIDERS: PCP Family Medicine
DX: M79.10 Myalgia, unspecified site (principal); M25.50 Pain in unspecified joint
CPT/HCPCS: 36415; 80053; 82085; 82550; 85025; 85652; 86038; 86039; 86140; 86160; 86200; 86225; 86235; 86376; 86430; 86800

== ENCOUNTER 2024-10-01 07:13 | Outpatient (CLI) | payer OTHER, SELFPAY ==
--- OUTSIDE RECORDS SUMMARY | 2024-10-01 07:17 | XMS_ITS ---
Author Organization [facility] Address [address] [facility] [address] [facility] [address] [place], [place] [address] Care Team Providers Care Healthcare Manager Name Role Phone ANGELINA DAVISON Primary Care Provider Unavail able Gina Morton Unavailable [phone] Clarita Rice Unavailable [phone] ALLERGIES Allergen (clinical drug ingredient) Drug/Non Drug [...] Diagnosis [facility] [address] [facility], [address] [place], [place] [id number] 08/28/2024 Clarita Rice Polyarthralgia M25.5 0 ; Raynaud's phenomenon without gangrene I73.00 ; Xerostomia K11.7 ; Myalgia M79.10 and Other care home (current) drug therapy Z79.899 ASSESSMENTS Encounter Date [...] time. Keep warm. Re-evaluate labs. 08/28/2024 Other care home (current) drug therapy (ICD-10 - Z79.899) [...] AM, [address] [facility], [address], [place], [place], [id number], Progress Notes * Examination Category Sub-Category Detail [...]
--- OUTSIDE RECORDS SUMMARY | 2024-10-01 07:17 | XMS_ITS | Clinical Summary ---
Author Organization [facility] Address [address], [address] [address] Phone Care Team Providers Care Rabies Inspector Name Role Phone Dilia Hahn MD, Lawrence Primary Care Provider [phone] Allergies Active Allergy Reactions Criticality Noted Date [...] to complete this topic Insurance Care Teams Rabies Inspector Relationship Specialty Start Date End Date Lawrence Dobbs MD [id number] [facility] [address] [place] [address] PCP - General Family Medicine 09/25/17
--- OUTSIDE RECORDS SUMMARY | 2024-10-01 07:17 | XMS_ITS ---
Author Organization [facility] Address [address] [place], [place] [address] Care Team Providers Care Plunger Machine Operator Name Role Phone ANGELINA DAVISON Primary Care Provider Unavail Gina Edwards Unavailable [phone] Encounters Encounter Location Date Provider Diagnosis [facility] [address], [address] [place], [place] [id number] 03/27/2024 Gina Morton PLAN OF TREATMENT Next Appt Details Provider Name:Clarita Rice, 1 04/29/2024 11:20:00 AM, [address] [facility], [address], [place], [place], [id number],
--- OUTSIDE RECORDS SUMMARY | 2024-10-01 07:17 | XMS_ITS | Patient Health Record ---
Author Organization [facility] Address [address] [place], [place] [id number] Care Team Providers Care Burglar Alarm Mechanic Name Role Phone SAMAN ANGELINA Primary Care Provider Unavail able Gina Morton Unavailable [phone] Viktoriya Kaur Unavailable [phone] Clarita Rice Unavailable [phone] ALLERGIES Allergen (clinical drug ingredient) Drug/Non Drug [...] Raynaud's phenomenon without gangrene (I73.00) Active confirmed [id number] Problem Other correction (current) drug therapy (Z79.899) Active confirmed 846637664 VITAL SIGNS Heart Rate 67 /min 08/28/2024 Blood pressure diastolic 73 mm Hg 08/28/2024 Height 64 in 08/28/2024 Blood pressure systolic 132 mm Hg 08/28/2024 Weight 166 lbs 08/28/2024 BMI 28.49 kg/m2 08/28/2024 Encounters Encounter Location Date Provider Diagnosis [facility], [address] [id number] 02/29/2024 Viktoriya Kaur [facility] [address] [place] [address], [address] [id number] 02/28/2024 Clarita Fajic Polyarthralgia M25.5 0 ; Xerostomia K11.7 ; Raynaud's phenomenon without gangrene I73.00 ; Myalgia M79.10 and Other correction (current) drug therapy Z79.899 [facility] [address] [place] [address], [address] [id number] 02/09/2024 Gina Degavinendorf Polyarthralgia M25.5 0 ; Xerostomia K11.7 ; Raynaud's phenomenon without gangrene I73.00 ; Myalgia M79.10 and Other correction (current) drug therapy Z79.899 [facility] [address] [facility], [address] [id number] 08/28/2024 Clarita Fajic Polyarthralgia M25.5 0 ; Raynaud's phenomenon without gangrene I73.00 ; Xerostomia K11.7 ; Myalgia M79.10 and Other adjunct faculty for medical terminology (current) drug therapy Z79.899 [facility] [address] [place] [address], [address] [id number] 02/05/2024 Gina Morton [facility] [address] [place] [address], [address] [id number] 02/09/2024 Gina Morton [facility] [address] [place] [address], [address] [id number] 02/28/2024 Gina Morton [facility] [address] [place] [address], [address] [place], [place] [id number] 03/27/2024 Gina Morton [facility] [address] [facility], [address] [place], [place] [phone] 09/05/2024 Gina Morton ASSESSMENTS Encounter Date Diagnosis Assessment [...] records. Reviewed patients health history forms 08/28/2024 Polyarthralgia (ICD-10 - M25.50) Several complaints- [...] time. Keep warm. Re-evaluate labs. 02/28/2024 Other correction (current) drug therapy (ICD-10 - Z79.899) Several [...] Repeat labs in 6 months. 02/09/2024 Other adjunct faculty for medical terminology (current) drug therapy (ICD-10 - Z79.899) Several complaints- migratory joint pain, dry mouth and raynauds- hx of possible CTD. Re-evaluate labs. Keep warm. Review Dr. Gil's records. Reviewed patients health history forms 08/28/2024 Other correction (current) drug therapy (ICD-10 - Z79.899) Several complaints- migratory joint pain, dry mouth and raynauds- hx of possible CTD. Repeat labs with positive BARNEY and TPO Ab positive, which could be the cause of positive BARNEY. BARNEY panel and DsDNA negative with normal complement levels. No evidence of CTD at this time. Keep warm. Re-evaluate labs. PLAN OF TREATMENT Pending Test Test Name Order Date CPK Total,Serum 08/28/2024 Complement C4, Serum 02/09/2024 Complement C4, Serum 08/28/2024 T4 Free 02/09/2024 Aldolase 08/28/2024 TSH 02/09/2024 CBC With Differential/Platelet CBC With Differential/Platelet 5 Sed Rate - Westergren 02/09/2024 Sed Rate - Westergren 08/28/2024 Complement C3, Serum 02/09/2024 Complement C3, Serum 08/28/2024 Rheumatoid Arthritis Factor 02/09/2024 Rheumatoid Arthritis Factor 08/28/2024 C-Reactive Protein, Quant 02/09/2024 C-Reactive Protein, Quant 08/28/2024 Thyroid Peroxidase and Antithyroglobunli n Antibodies 02/09/2024 Thyroid Peroxidase and Antithyroglobunli n Antibodies 08/28/2024 HLA B 27 Disease Association 02/09/2024 CCP IgG Antibodies 08/28/2024 CCP IgG Antibodies 02/09/2024 Comp. Metabolic Panel (14) 08/28/2024 Comp. Metabolic Panel (14) 02/09/2024 BARNEY Panel (BARNEY+JUDY+Scl 70+SjoSSA+SjoSSB) 08/28/2024 BARNEY Panel (BARNEY+JUDY+Scl 70+SjoSSA+SjoSSB) 02/09/2024 Centromere B Antibodies 02/09/2024 DS DNA-CRITHIDIA IFA W/REFLEX TO TITER-L [facility] 02/09/2024 DS DNA-CRITHIDIA IFA W/REFLEX TO TITER-L [facility] 08/28/2024 Urinalysis, Complete 02/09/2024 Next Appt Details Provider Name:Clarita Rice, 1 04/29/2024 11:20:00 AM, [address] [facility], [facility], [facility] [address], [place], [place], [phone], Insurance Providers Payer Name Payer Address Payer Phone Subscriber Number Group Number Insured Name Patient Relationship to Insured Coverage Start Date Coverage End Date [facility] [address] [address] [place] [id number] Georgina Fisher Self - patient is the [...]
--- OUTSIDE RECORDS SUMMARY | 2024-10-01 07:17 | XMS_ITS ---
Author Organization [facility] Address [address] [place], [place] [phone] Care Team Providers Care Deckhand Crab Boat Name Role Phone ANGELINA DAVISON Primary Care Provider Unavail Gina Edwards Unavailable [phone] Encounters Encounter Location Date Provider Diagnosis [facility] [address], [address] [place], [place] [phone] 09/05/2024 Gina Morton PLAN OF TREATMENT Next Appt Details Provider Name:Clarita Rice, 1 04/29/2024 11:20:00 AM, [address] [facility], [address], [place], [place], [id number],
[2024-10-01 08:02] LABS: Anion Gap 8 mmol/L (4-12); Blood Urea Nitrogen 17 mg/dL (7-17); Calcium 9.3 mg/dL (8.4-10.2); Carbon Dioxide 25 mmol/L (22-30); Chloride 107 mmol/L (98-107); Estimated Glomerular Filt Rate 56; Glucose 119 mg/dL (65-110); Potassium 3.7 mmol/L (3.4-5.0); Sodium 140 mmol/L (137-145)
== END 2024-10-01 07:14 | disposition home or self-care (01) ==
PROVIDERS: PCP Family Medicine; Visit Provider Student in an Organized Health Care Education/Training Program
DX: R79.89 Other specified abnormal findings of blood chemistry (principal)
CPT/HCPCS: 36415; 80048

== ENCOUNTER 2024-11-25 13:49 | Outpatient (CLI) | payer OTHER, SELFPAY ==
--- OUTSIDE RECORDS SUMMARY | 2024-02-28 09:19 | XMS_ITS ---
Author Organization [facility] Address [address] [place], [place] [id number] Care Team Providers Care Jute Bag Clipper Name Role Phone ANGELINA DAVISON Primary Care Provider Unavail Gina Edwards Unavailable [phone] Encounters Encounter Location Date Provider Diagnosis [facility] [address], [address] [place], [place] [id number] 02/28/2024 Gina Morton PLAN OF TREATMENT Next Appt Details Provider Name:Clarita Rice, 1 04/29/2024 11:20:00 AM, [address] [facility], [address], [place], [place], [phone],
--- OUTSIDE RECORDS SUMMARY | 2024-02-29 10:20 | XMS_ITS ---
Author Organization [facility] Address [address] [place], [place] [id number] Care Team Providers Care Idea Man Name Role Phone ANGELINA DAVISON Primary Care Provider Unavail able Gina Morton Unavailable [phone] Viktoriya Kaur Unavailable [phone] Encounters Encounter Location Date Provider Diagnosis [facility] [address] [facility], [address] [place], [place] [id number] 02/29/2024 Viktoriya Kaur PLAN OF TREATMENT Next Appt Details Provider Name:Clarita Rice, 1 04/29/2024 11:20:00 AM, [address] [facility], [address], [place], [place], [phone],
--- OUTSIDE RECORDS SUMMARY | 2024-03-27 05:23 | XMS_ITS ---
Author Organization [facility] Address [address] [place], [place] [id number] Care Team Providers Care Triage Registered Nurse Name Role Phone ANGELINA DAVISON Primary Care Provider Unavail Gina Edwards Unavailable [phone] Encounters Encounter Location Date Provider Diagnosis [facility] [address], [address] [place], [place] [id number] 03/27/2024 Gina Morton PLAN OF TREATMENT Next Appt Details Provider Name:Clarita Rice, 1 04/29/2024 11:20:00 AM, [address] [facility], [address], [place], [place], [id number],
--- OUTSIDE RECORDS SUMMARY | 2024-08-28 08:30 | XMS_ITS ---
Author Organization [facility] Address [address] [facility] [address] [place], [place] [address] Care Team Providers Care Meat Team Lead Name Role Phone ANGELINA DAVISON Primary Care Provider Unavail able Gina Morton Unavailable [phone] Clarita Rice Unavailable [phone] ALLERGIES Allergen (clinical drug ingredient) Drug/Non Drug Allergy documented on EMR Reaction Allergy Type Onset Date Status morphine morphine itching Drug Allergy Active tetracycline tetracycline vomiting Drug Allergy A ctive codeine codeine itching Drug Allergy Active nitrofurantoin, macrocrystals / nitrofurantoin, monohydrate Macrobid hives Drug Allergy Active REASON FOR VISIT Patient presents for scheduled rheumatology follow up MEDICATIONS Medication SIG (Take, Route, Frequency, Duration) Notes Start Date End Date Status levothyroxine 75 mcg (0.075 mg) 1 tab(s) orally once a day Active Magnesium 400 mg Active omeprazole 40 mg 1 cap(s) orally once a day Active Calcium Citrate + D3 600mg Active liothyronine 5 mcg 1 tab(s) orally once a day Active curcumin Turmeric Active multivitamin Active AZO Cranberry Urinary Tract Health Caplet, 20 Acti ve Vitamin D3 Active Vitamin D 5000 IU Active asprin 81mg 1 tab once a day A ctive MiraLax PRN Active VITAL SIGNS BMI 28.49 kg/m2 08/28/2024 Blood pressure systolic 132 mm Hg 08/29/19 25 Blood pressure diastolic 73 mm Hg 025 Heart Rate 67 /min 08/28/2024 Height 64 in 08/28/2024 Weight 166 lbs 08/28/2024 Encounters Encounter Location Date Provider Diagnosis [facility] [address] [facility], [address] [place], [place] [id number] 08/28/2024 Clarita Rice Polyarthralgia M25.5 0 ; Raynaud's phenomenon without gangrene I73.00 ; Xerostomia K11.7 ; Myalgia M79.10 and Other termite control technician (current) drug therapy Z79.899 ASSESSMENTS Encounter Date Diagnosis Assessment Notes Treatment Notes Treatment Clinical Notes Section Notes 08/28/2024 Polyarthralgia (ICD-10 - M25.50) Several complaints- migratory joint pain, dry mouth and raynauds- hx of possible CTD. Repeat labs with positive BARNEY and TPO Ab positive, which could be the cause of positive BARNEY. BARNEY panel and DsDNA negative with normal complement levels. No evidence of CTD at this time. Keep warm. Re-evaluate labs. 08/28/2024 Raynaud's phenomenon without gangrene (ICD-10 - I73.00) Several complaints- migratory joint pain, dry mouth and raynauds- hx of possible CTD. Repeat labs with positive BARNEY and TPO Ab positive, which could be the cause of positive BARNEY. BARNEY panel and DsDNA negative with normal complement levels. No evidence of CTD at this time. Keep warm. Re-evaluate labs. 08/28/2024 Xerostomia (ICD-10 - K11.7) Several complaints- migratory joint pain, dry mouth and raynauds- hx of possible CTD. Repeat labs with positive BARNEY and TPO Ab positive, which could be the cause of positive BARNEY. BARNEY panel and DsDNA negative with normal complement levels. No evidence of CTD at this time. Keep warm. Re-evaluate labs. 08/28/2024 Myalgia (ICD-10 - M79.10) Several complaints- migratory joint pain, dry mouth and raynauds- hx of possible CTD. Repeat labs with positive BARNEY and TPO Ab positive, which could be the cause of positive BARNEY. BARNEY panel and DsDNA negative with normal complement levels. No evidence of CTD at this time. Keep warm. Re-evaluate labs. 08/28/2024 Other nursing home (current) drug therapy (ICD-10 - Z79.899) Several complaints- migratory joint pain, dry mouth and raynauds- hx of possible CTD. Repeat labs with positive BARNEY and TPO Ab positive, which could be the cause of positive BARNEY. BARNEY panel and DsDNA negative with normal complement levels. No evidence of CTD at this time. Keep warm. Re-evaluate labs. PLAN OF TREATMENT Medication Medication Name Sig Start Date Stop Date Notes levothyroxine 75 mcg (0.075 mg) 1 tab(s) orally once a day Magnesium 400 mg omeprazole 40 mg 1 cap(s) orally once a day Calcium Citrate + D3 600m g liothyronine 5 mcg 1 tab(s) orally once a day curcumin Turmeric multivitamin AZO Cranberry Urinary Tract Health Caplet, 20 Vitamin D3 Vitamin D 5000 IU asprin 81mg 1 tab once a day MiraLax PRN Pending Test Test Name Order Date CPK Total,Serum 08/28/2024 Complement C4, Serum 08/28/2024 Aldolase 08/28/2024 CBC With Differential/Platelet Sed Rate - Westergren 08/28/2024 Complement C3, Serum 08/28/2024 Rheumatoid Arthritis Factor 08/28/2024 C-Reactive Protein, Quant 08/28/2024 Thyroid Peroxidase and Antithyroglobunli n Antibodies 08/28/2024 CCP IgG Antibodies 08/28/2024 Comp. Metabolic Panel (14) 08/28/2024 BARNEY Panel (BARNEY+JUDY+Scl 70+SjoSSA+SjoSSB) 08/28/2024 DS DNA-CRITHIDIA IFA W/REFLEX TO TITER-L ABCORP 08/28/2024 Next Appt Details Follow Up: 6 Months - clarita, Reason: Provider Name:Clarita Rice, 1 04/29/2024 11:20:00 AM, [address] [facility], [address], [place], [place], [id number], Progress Notes * Examination Category Sub-Category Detail Notes Category Not es Rheumatology Cervical Spine normal range of motion Lumbar spine: normal forward and l ateral bending Thoracic Spine: normal Sacroiliac: normal Fibromyalgia Tender Points: none General Constitutional: No acute distress HEENT: PERRLA, Neck supple, Normal sclerae and conjunctivae Cardiovascular RSR, No murmurs, Nor mal peripheral pulsations, No edema Lungs: clear to ausculation Abdomen: soft, no organomegal y or masses /Rectal: not done Skin: No cutaneous lesions . No subcutaneous nodules noted in the 4 extremities Neurological: No focal neurologica l findings Heme/Lymphatic: No cervical, axillar y, or inguinal adenopathy Psych: Alert, oriented x 3, Normal affect Musculoskeletal: Normal strength. No muscle atrophy Joint Exam Shoulders decreased ROM Elbows No swelling. No tend erness. NROM. Wrists No swelling. No tend erness. NROM. Hips No tenderness, janis l ROM, no instability or deformity Knees No swelling, no tend erness, NROM. No instability or deformity Ankles No swelling, no tend erness, NROM., No instability or deformity. All MCPs No swelling, no tend erness, no deformity unless noted below. All PIPs No swelling, no tend erness, no deformity unless noted below. All DIPs No swelling, no tend erness, no deformity unless noted below. All MTPs No swelling, no tend erness, NROM, no deformity unless noted below. History and Physical Notes * HPI (History of Present Illness) Category Sub-Category Detail Notes Category Not es Rheumatology Joint pain Patient presents for follow up for positive BARNEY with positive TPO Ab. She saw Dr. Gil in the past and was periodically been on HCQ and tolerated it ok. 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 Hx of necrotizing pancreatitis in 2001. No cause found. Does report occasional raynauds- white/blue fingertips in the cold- no digital ulcers. Hx of thyroid disease/Cydney's. Has episodes of all over pain - muscles and joints last week and it went away Joints feel stiff - mainly hands - worse in the morning. No acute swelling. Not sleeping well, wakes up at 1 am and 4 am on regular basis. Remains active, plays softball Hx of nasal ulcers - saw ENT had it cautirized Works in GI lab Has had trigger finger release and recently had rotator cuff surgery. Dealing with some torn tendons in her left wrist- seeing ortho. Joint swelling Fever Dyspnea/SOB Cough Lymphadenopathy Chills fatigue morning stiffness 30 minutes myalgias infection dry eyes dry mouth Raynaud's/ dicoloration of fingers muscle weakness digital ulcerations rash dysphagia photosensitivity Back pain History of gout Headaches Psoriasis Oral sores Iritis, conjuctivitis, uveiitis tendinitis Numbness or tingling Family History of Rheumatic Disease Alopecia chest pain miscarriage Physical Examination Category Sub-Category Detail Notes Section Note s MDHAQ Summary Function (0-10):: 0 Pain (0-10):: 2 Patient Global Assessment of Disease Activity (0 -10):: .5 RAPID3 Score (0-30):: 2.5 Physician Global Assessment of Disease Activity (0-10):: 2 Prognosis Good w/tx Erosive Damage No
--- OUTSIDE RECORDS SUMMARY | 2024-09-05 09:17 | XMS_ITS ---
Author Organization [facility] Address [address] [place], [place] [id number] Care Team Providers Care Latex Spooler Name Role Phone ANGELINA DAVISON Primary Care Provider Unavail Gina Edwards Unavailable [phone] Encounters Encounter Location Date Provider Diagnosis [facility] [address] [place], [place] [id number] 09/05/2024 Gina Morton PLAN OF TREATMENT Next Appt Details Provider Name:Clarita Rice, 1 04/29/2024 11:20:00 AM, [address] [facility], [address], [place], [place], [id number],
--- NOTE | ~2024-11-25 | CT_ITS ---
EXAMINATION: CT abdomen pelvis wo con DATE: 11/25/2024 14:11 INDICATION: Left flank pain. TECHNIQUE: Computed tomography (CT) of the abdomen and pelvis was performed without intravenous contrast. Automated exposure control and iterative reconstruction technique were employed. The dose-length product was 416.19 mGy-cm. COMPARISON: CT abdomen and pelvis 06/17/2022 FINDINGS: The visualized portions of the lung bases are clear without pneumonia or pleural effusion. The heart size is normal. No pericardial effusion. Pneumobilia is noted, likely secondary to sphincterotomy. There are changes of cholecystectomy. The spleen is normal. There is fatty atrophy of the pancreas. The adrenal glands are normal. There is cortical thinning of the kidneys. There is no urolithiasis. There are no dilated loops of bowel. The appendix is normal. There is no ascites. There are no pathologically enlarged lymph nodes. There is mild lumbar spondylosis. There is mild chronic anterior wedging of multiple vertebral bodies. IMPRESSION: 1. No urolithiasis. Reviewed, dictated and finalized at location E. IMPRESSION: 1. No urolithiasis.
--- OUTSIDE RECORDS SUMMARY | 2024-11-25 13:56 | XMS_ITS | Patient Health Record ---
Author Organization [facility] Address [address] [place], [place] [id number] Care Team Providers Care Bacteriologist Fishery Name Role Phone SAMAN ANGELINA Primary Care Provider Unavail able Gina Morton Unavailable [phone] Viktoriya Kaur Unavailable Clarita Rice Unavailable [phone] ALLERGIES Allergen (clinical drug ingredient) Drug/Non Drug [...] Raynaud's phenomenon without gangrene (I73.00) Active confirmed [id number] Problem Other usp (current) drug therapy (Z79.899) Active confirmed [id number] VITAL SIGNS Heart Rate 67 /min 08/28/2024 Blood pressure diastolic 73 mm Hg 08/28/2024 Height 64 in 08/28/2024 Blood pressure systolic 132 mm Hg 08/28/2024 Weight 166 lbs 08/28/2024 BMI 28.49 kg/m2 08/28/2024 Encounters Encounter Location Date Provider Diagnosis [facility], [address] [id number] 02/29/2024 Viktoriya Kaur [facility] [address] [place] [address], [address] [id number] 02/28/2024 Clarita Fajic Polyarthralgia M25.5 0 ; Xerostomia K11.7 ; Raynaud's phenomenon without gangrene I73.00 ; Myalgia M79.10 and Other terminal make up operator (current) drug therapy Z79.899 [facility] [address] [place] [address], [address] [id number] 02/09/2024 Gina Degavinendorf Polyarthralgia M25.5 0 ; Xerostomia K11.7 ; Raynaud's phenomenon without gangrene I73.00 ; Myalgia M79.10 and Other usp (current) drug therapy Z79.899 [facility] 2 [facility], [address] [id number] 08/28/2024 Clarita Fajic Polyarthralgia M25.5 0 ; Raynaud's phenomenon without gangrene I73.00 ; Xerostomia K11.7 ; Myalgia M79.10 and Other usp (current) drug therapy Z79.899 [facility] [address] [place] [address], [address] [id number] 02/05/2024 Gina Morton [facility] [address] [place] [address], [address] [id number] 02/09/2024 Gina Morton [facility] [address] [place] [address], [address] [id number] 02/28/2024 Gina Morton [facility] [address] [place] [address], [address] [place], [place] [id number] 03/27/2024 Gina Morton [facility] [address] [facility], [address] [place], [place] [id number] 09/05/2024 Gina Morton ASSESSMENTS Encounter Date Diagnosis [...] CTD. Re-evaluate labs. Keep warm. Review Dr. Gli's records. Reviewed patients health history forms 02/09/2024 [...] time. Keep warm. Re-evaluate labs. 02/28/2024 Other usp (current) drug therapy (ICD-10 - Z79.899) Several [...] labs in 6 months. 02/09/2024 Other terminal make up operator (current) drug therapy (ICD-10 - Z79.899) Several complaints- migratory joint pain, dry mouth and raynauds- hx of possible CTD. Re-evaluate labs. Keep warm. Review Dr. Gil's records. Reviewed patients health history forms 08/28/2024 Other usp (current) drug therapy (ICD-10 - Z79.899) Several [...] Rice, 1 04/29/2024 11:20:00 AM, [address] [facility], [facility] [address], [place], [place], [id number], Insurance Providers Payer Name Payer Address Payer Phone Subscriber Number Group Number Insured Name Patient Relationship to Insured Coverage Start Date Coverage End Date [facility] [address] [address] [place] [address] [id number] Georgina Fisher Self - patient is the [...]
--- OUTSIDE RECORDS SUMMARY | 2024-11-25 13:56 | XMS_ITS | Encounter Summary ---
Author Organization [facility] Address [address] [place] [address] Care Team Providers Care Development Director Name Role Phone Stephenie Jackson MD Primary Care Provider Un available Stephenie Jackson MD Primary Care Provider Un available Encounter Details Date Type Department Care Team (Late st Contact Info) Description 11/02/2001 Abstract [facility] Conversion , Arthur ConversionMD Social History Tobacco Use Types Packs/Day Years Used Date Smoking Tobacco: Never Assessed Comments Unknown Sex and Gender Information Value Date Recorded Sex Assigned at Not on file Legal Sex Female 6:01 PM CDT Gender Identity Not on file Sexual Orientation Not on file documented as of this encounter Plan of Treatment Not on file documented as of this encounter Visit Diagnoses Not on filedocumented in this encounter Additional Health Concerns Infection Onset Date Last Indicated Resolved Time COVID-19 Rule Out 11/19/2019 11/19/2019 11/21/2019 2:30 AM CDT documented as of this encounter Care Teams Development Director Relationship Specialty Start Date End Date Stephenie Jackson MD PCP - General INTERNAL MEDICINE 03/23/18 04/14/20 Stephenie Jackson MD PCP - General INTERNAL MEDICINE 05/18/20 documented as of this encounter
--- OUTSIDE RECORDS SUMMARY | 2024-11-25 13:56 | XMS_ITS | Encounter Summary ---
Author Organization [facility] Address [address] [place] [address] Care Team Providers Care International Marketing Specialist Name Role Phone Stephenie Jackson MD Primary Care Provider Un available Stephenie Jcakson MD Primary Care Provider Un available Encounter Details Date Type Department Care Team (Late st Contact Info) Description 02/02/2016 Abstract [facility] Conversion Lawrence Dobbs MD Social History Tobacco Use Types Packs/Day Years Used Date Smoking Tobacco: Never Assessed Comments Unknown Sex and Gender Information Value Date Recorded Sex Assigned at Not on file Legal Sex Female 6:01 PM CDT Gender Identity Not on file Sexual Orientation Not on file documented as of this encounter Miscellaneous Notes * Letter - Lawrence Dobbs MD - 02/02/2016 12:00 AM CST 02-02-2016 Georgina Marin [address] [place] [address] : 1960 Radiology CAT Scan Abdomen/Pelvis with IV Contrast> Routine Chronic Pancreatitis K86.1 Personal history of urinary (tract) infections Z87.440 Normal [x] Stat [] NG MACHINE REPAIRER documented in this encounter Plan of Treatment Not on file documented as of this encounter Visit Diagnoses Not on filedocumented in this encounter Additional Health Concerns Infection Onset Date Last Indicated Resolved Time COVID-19 Rule Out 11/19/2019 11/19/2019 11/21/2019 2:30 AM CDT documented as of this encounter Care Teams International Marketing Specialist Relationship Specialty Start Date End Date Stephenie Jackson MD PCP - General INTERNAL MEDICINE 03/23/18 04/14/20 Stephenie Jackson MD PCP - General INTERNAL MEDICINE 05/18/20 documented as of this encounter
--- OUTSIDE RECORDS SUMMARY | 2024-11-25 13:56 | XMS_ITS | Clinical Summary ---
Author Organization [facility] Address [address] [place] [address] Care Team Providers Care Building And Construction Manager Name Role Phone Stephenie Jackson MD Primary Care Provider Un available Allergies Active Allergy Reactions Criticality Noted Date Comments Bee Venom Anaphylaxis High 09/18/2012 Codeine Itching 09/15/2004 Morphine Itching 09/15/2004 Tetracycline Diarrhea,Nausea and Vomiting 09/15 Medications EPINEPHrine 0.3 MG/0.3ML injection EpiPen 2-Ravinder 0.3 MG/0.3ML SOAJ As [id number] - -Jun-2015Ac tive 07/01/2015 Active omeprazole 40 MG capsule Take 40 mg by mouth. 03/16/2017 Active polyethylene glycol (MIRALAX) powder Take 1 tsp by mouth daily. 03/24/2015 Active Cholecalciferol (EQL VITAMIN D3) 5000 units Cap Take by mouth every other day. 03/16/2017 Active Multiple Vitamin (MULTIVITAMIN) capsule Take by mouth daily. 12/06/2005 Active Biotin 5000 MCG Cap Active hydroxychloroqui ne 200 MG tablet Take 400 mg by mouth daily. 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 90 tablet 1 08/26/2019 Active calcium carb-cholecalcif alejandro 600-400 MG-UNIT Tab tablet 1 tablet daily. Active liothyronine 5 MCG Tab 5 mg nightly. 08/21/2019 Active estradiol 0.1 MG/GM vaginal cream 04/12/2019 Active predniSONE 20 MG tablet Take 20 mg by mouth daily. 11/16/2019 Active Active Problems Problem Noted Date Diagnosed Date Cydney's thyroiditis 04/26/2018 Rosacea 01/22/2015 Overview (03/23/2018): see dermatology metronidazole 1% pumpp Calculus of kidney 01/22/2015 Overview (04/26/2018): no problems ? left renal colic Other chronic pancreatitis ([facility]) 08/2013 Overview (03/23/2018): occasional discomfort Immunizations Immunization Administration Dates Next Due Hepatitis A Vaccine - 2 Dose 09/27/2002,06/02/19 00 Hepatitis B 11/27/1998,05/22/1998,04/17/1998 Influenza Adult (Generic) 01/07/2015,01/23/2013, 12/20/2011,01/13/2010 Mumps (Generic) 09/16/2002 Td 09/16/2002 Tdap (Generic) 06/30/2011 Family History Medical History Relation Comments Dementia Father Heart Disease Father Cancer Maternal Aunt breast ca Cancer Mother breast ca Dementia Mother Cancer Paternal Aunt rectal ca Heart Disease Sister Relation Status Comments Brother Alive Father Alive Maternal Aunt Mother Alive Paternal Aunt Sister Alive Social History Tobacco Use Types Packs/Day Years Used Date Smoking Tobacco: Never Smokeless Tobacco: Never Alcohol Use Standard Drinks/Week Comments No 0 (1 standard drink = 0.6 oz pur e alcohol) AUDIT-C Answer Date Recorded Frequency of Alcohol Consumption Never 04/26/2018 Average Number of Drinks Not on file 019 Frequency of Binge Drinking Not on file 09/2018 Comments No Sex and Gender Information Value Date Recorded Sex Assigned at Not on file Legal Sex Female 6:01 PM CDT Gender Identity Not on file Sexual Orientation Not on file Last Filed Vital Signs Vital Sign Reading Time Taken Comments Blood Pressure 120/72 11/19/2019 11:33 AM CDT Pulse 64 11/19/2019 11:33 AM CDT Temperature 36.2 C (97.2 F) 11/19/2019 11:33 AM CDT Respiratory Rate 20 11/19/2019 11:33 AM CDT Oxygen Saturation 98% 11/19/2019 11:33 AM CDT Inhaled Oxygen Concentration - - Weight 77.1 kg (170 lb) 11/19/2019 11:33 AM CDT Height 162.6 cm (5' 4) 11/19/2019 11:33 AM CDT Body Mass Index 29.18 11/19/2019 11:33 AM CDT Plan of Treatment Health Maintenance Due Date Last Done Comments Cervical Cancer Screening Pa p Smear (Age 30 to 64) Every 3 Years 1960 Colorectal Cancer Screening Colonoscopy (10 Years) 1960 Hepatitis C 01/01/1980 Cervical Cancer Screening Pa p with HPV Testing (Age 30 to 64) Every 5 Years 01/01/1992 Cervical Cancer Screening wi th HPV 01/01/1992 Pneumococcal Vaccine: 50+ Years (1 of 1 - PCV) 01/01/2012 Zoster Vaccines (1 of 2) 01/01/2012 Annual Physical 04/26/2019 04/26/2018 Mammogram Screening 03/30/2020 03/30/2018 DTaP, Tdap and Td Vaccines ( 2 - Td or Tdap) 06/29/2021 06/30/2011, 09/16/2002 COVID-19 Vaccine ( - 2023-2 5 season) 2024 RSV Immunization or 60+ Years (1 - 1-dose 75+ series) 2036 Meningococcal B Vaccine Aged Out No l onger eligible based on patient's age to complete this topic Meningococcal Vaccine Aged Out No gamal orion eligible based on patient's age to complete this topic RSV Immunizations Under 20 Months Aged Out No longer eligible b ased on patient's age to complete this topic Procedures Procedure Name Priority Date/Time Associated Diagnosis Comments MAMMOGRAM GENERIC (SCAN ORDER) Routine 03/30/2018 from Last 3 Months or Most Recently Relevant to Health Maintenance Results * MAMMOGRAM (03/30/2018) Anatomical Region Laterality Modality Other us Documents Scanned SCANNING Edited Result - Final from Last 3 Months or Most Recently Relevant to Health Maintenance Insurance [employer] [place] [id number] Care Teams Building And Construction Manager Relationship Specialty Start Date End Date Stephenie Jackson MD PCP - General INTERNAL MEDICINE 05/18/20
--- OUTSIDE RECORDS SUMMARY | 2024-11-25 13:57 | XMS_ITS | Clinical Summary ---
Author Organization [facility] Address [address], [address] [address] Phone Care Team Providers Care Dean Of Faculty Name Role Phone Dilia Hahn MD, Lawrence Primary Care Provider [phone] Allergies Active Allergy Reactions Criticality Noted Date [...] Cervical Cancer Screening (CCS) 01/01/1992 HPV/Cotest 01/01/1992 Cologuard 2006 Colonoscopy 2006 Colorectal Cancer Screening 2006 Immunochemical Fecal Occult Blood 2006 Pneumococcal Immunization (5 0+ years) (1 of 1 - PCV) 01/01/2012 Zoster Immunization (1 of 2) 01/01/2012 SARS-COV-2 Immunization (1 - 2023- season) 2023 Influenza Immunization (#1) 2024 Respiratory Syncytial Virus (RSV) Immunization (Adult) (1 - 1-dose 75+ series) 2036 Hepatitis B Immunization Aged Out No longer eligible based on patient's age to complete this topic Human Papillomavirus (HPV) Immunization Aged Out No longer eligible b ased on patient's age to complete this topic Meningococcal Immunization (ACWY) Aged Out No longer eligible based on patient's age to complete this topic Rotavirus Immunization Aged Out No lo nger eligible based on patient's age to complete this topic Insurance Care Teams Dean Of Faculty Relationship Specialty Start Date End Date Lawrence Dobbs MD [address] [facility] [address] [place] [address] PCP - General Family Medicine 09/25/17
== END 2024-11-25 13:50 | disposition home or self-care (01) ==
PROVIDERS: PCP Family Medicine; Visit Provider Nurse Practitioner Family
DX: R10.9 Unspecified abdominal pain (principal)
CPT/HCPCS: 74176

== ENCOUNTER 2025-02-04 15:17 | Emergency (ER) | payer OTHER, SELFPAY ==
[2025-02-04 15:25] VITALS: BP 157/78; PULSE 74; RESP 18; TEMP 36.9; O2SAT 100
[2025-02-04 16:40] VITALS: BP 157/85; PULSE 68; RESP 20; O2SAT 100
--- NOTE | 2025-02-04 17:09 | ED.ALLEREA ---
HPI - Allergic Reaction General Chief complaint: Allergic Reaction Stated complaint: allergic reaction Time Seen by Provider: 02/04/25 16:57 History of Present Illness HPI narrative: This is a 64-year-old female with history of CKD, GERD, pancreatitis who presents to the ED for allergic reaction. Patient states that earlier today she was stung by a hornet and she began to get high as sore throat and nausea. She took 50 mg of Benadryl. She did not use the EpiPen that she has home because ?you have to go to the hospital anyway?. She still reports the sore throat and itchiness. Reports the nausea in the improved but is still there. Related Data Home Medications ?Medication ?Instructions ?Recorded ?Confirmed ?Last Taken ?Type calcium carbonate (Calcium 600) 1,200 mg PO DAILY 03/11/19 03/19/24 Unknown History cholecalciferol (vitamin D3) 10,000 unit PO DAILY 03/11/19 03/19/24 Unknown History multivitamin 1 tablet PO DAILY 03/11/19 03/19/24 Unknown History magnesium 200 mg tablet 400 mg PO DAILY 09/08/23 03/19/24 Unknown History ferrous sulfate 325 mg (65 mg 325 mg PO DAILY 09/26/23 03/19/24 Unknown History iron) tablet Allergies Allergy/AdvReac Type Severity Reaction Status Date / Time nitrofurantoin Allergy Intermediate Rash Verified 03/19/24 07:14 codeine Allergy Unknown Itching Verified 03/19/24 07:14 morphine Allergy Unknown Itching Verified 03/19/24 07:14 tetracycline Allergy Unknown Vomiting Verified 03/19/24 07:14 Review of Systems Review of Systems: Gen.: Denies fevers or chills Eyes: Denies eye pain or visual change ENT: Denies congestion Respiratory: Denies shortness of breath or cough CV: Denies chest pain or palpitations GI: As per HPI denies burning, urgency, frequency or hematuria Musculoskeletal: Denies back pain or muscle pain Neuro: Denies numbness, tingling, weakness or focal weakness Skin: As per HPI Except as documented, all other systems reviewed and negative [facility] Past Medical History Medical History Early satiety Necrotizing pancreatitis Colon cancer screening GERD (gastroesophageal reflux disease) RUQ pain Trigger finger of both hands Undifferentiated connective tissue disease Cydney's thyroiditis Pain in left hip Myalgia Lupus arthritis Hip pain, bilateral Counseling on health promotion and disease prevention Body mass index [BMI] 30.0-30.9, adult (08/07/18) Hip pain, right (~2018) Primary osteoarthritis of hips, bilateral Cydney's thyroiditis Trigger thumb of both thumbs Chronic pancreatitis Gallbladder disease Restless legs Sciatica Thyroid disease Surgical History Surgical History S/P trigger finger release Hx of cholecystectomy History of ERCP Delivery by section History of carpal tunnel release Family History Family History Father CAD (coronary artery disease) Dementia Hx of CABG Mother Breast cancer Alzheimers disease Grandparent Alzheimers disease Sibling Mitral stenosis Social History Social History Social History: Caffeine-daily Smoking status: Never smoker Second hand tobacco smoke exposure: No Alcohol intake: former Alcohol use details: 2 per month Substance use: never Substance use type: does not use Do You Feel Safe in your Home?: Yes Lack of Transportation: No Lack of Food: Never True Current Housing: I Have Housing Concerned About Future Housing: No Difficulty Paying Gas/Electric Bills: No Difficulty Paying for Meds: No Currently Unemployed: No Education: Associate Degree Difficulty w/ Childcare or Family Care: No Living arrangements: with family Occupation/Education: occupation Gender identity (if verbalized by the patient): Female Sexual Orientation (if Verbalized by the Patient): Straight or Heterosexual Spiritual care concerns: No Exam Narrative: APPEARANCE: No acute distress, nontoxic, resting in bed EYES: EOMI HEENT: Normocephalic, atraumatic, OMM RESPIRATORY: No respiratory distress Clear to auscultation bilaterally with no rhonchi wheezing or rales. CARDIOVASCULAR: Regular rate and rhythm without murmurs rubs or gallops. ABDOMINAL: Soft, nontender, nondistended, no rebound or guarding MUSCULOSKELETAl: Moves all extremities. No clubbing, cyanosis or edema. NEURO: Awake and alert. Following commands, speech normal, no focal deficits SKIN:: Warm, dry. Scattered urticarial rash worse to the extremities. 3 x 3 cm area of erythema to the left lower leg PSYCHIATRIC: Normal affect/mood, Course Vital Signs Vital signs: Vital Signs Temperature 98.4 F 02/04/25 15:25 Pulse Rate 74 02/04/25 15:25 Respiratory Rate 18 02/04/25 15:25 Blood Pressure 157/78 H 02/04/25 15:25 Pulse Oximetry 100 02/04/25 15:25 Oxygen Delivery Room Air 02/04/25 15:25 Temperature 98.4 F 02/04/25 15:25 Pulse Rate 76 02/04/25 19:22 Respiratory Rate 18 02/04/25 19:22 Blood Pressure 120/76 02/04/25 19:22 Pulse Oximetry 97 02/04/25 19:22 Oxygen Delivery Room Air 02/04/25 16:41 MDM - Allergic Reaction MDM Narrative Medical decision making narrative: 64-year-old female Presenting for her anaphylaxis/allergic reaction. On initial evaluation patient was in no acute distress afebrile, hemodynamic stable. Differentials include but are not limited to: Anaphylaxis allergic reaction, angioedema, contact dermatitis, urticaria Notable exam findings: Scattered urticaria, lungs clear to auscultation and breathing, oropharynx clear Patient did have nausea remaining so she did meet to system criteria so she was given IM epi. Patient was monitored closely and did not have return of her symptoms and she was feeling much better. Patient was monitored for 2 hours in the ED without return of symptoms. She was advised to take 2nd generation antihistamines and will be given a refill of her epi pens as they likely . She was advised follow-up with her PCP in the next week for re-evaluation. Patient was agreeable to the plan. Given strict return precautions. Medical Records Attestation: I reviewed the patient's medical records. Discharge Plan Discharge Clinical Impression: Anaphylaxis Qualifiers: Encounter type: initial encounter Qualified Code(s): T78.2XXA - Anaphylactic shock, unspecified, initial encounter Patient Disposition: Home Condition: Stable Instructions: Antibiotic Form, Anaphylaxis (ED) Additional Instructions: Take Zyrtec, Claritin, or Kizzy for the next week. Use epi pens as prescribed. Follow-up with your PCP in the next week for re-evaluation. Return to the ED for any new or worsening symptoms. Patient Language: Israeli Prescriptions: New epinephrine [EpiPen 2-Ravinder] 0.3 mg/0.3 mL auto-injector 0.3 mg IM Q5-15M PRN (Reason: anaphylaxis) Qty: 2 0RF Rx Instructions: do not exceed 3 doses per episode No Action calcium carbonate [Calcium 600] 600 mg calcium (1,500 mg) tablet 1,200 mg PO DAILY multivitamin Tablet 1 tablet PO DAILY cholecalciferol (vitamin D3) 10,000 unit PO DAILY magnesium 200 mg tablet 400 mg PO DAILY ferrous sulfate 325 mg (65 mg iron) Tablet 325 mg PO DAILY omeprazole 40 mg capsule,delayed release(DR/EC) See Rx Instructions .ROUTE .COMPLEX Qty: 90 1RF Dose Instruction: Take 1 capsule by mouth once daily Rx Instructions: Take 1 capsule by mouth once daily liothyronine 5 mcg tablet See Rx Instructions .ROUTE .COMPLEX Qty: 90 0RF Dose Instruction: Take 1 tablet by mouth once daily Rx Instructions: Take 1 tablet by mouth once daily levothyroxine 75 mcg tablet See Rx Instructions .ROUTE .COMPLEX Qty: 81 0RF Dose Instruction: TAKE 1 TABLET BY MOUTH ONCE DAILY EXCEPT SKIP SUNDAYS Rx Instructions: TAKE 1 TABLET BY MOUTH ONCE DAILY EXCEPT SKIP SUNDAYS Follow-up/Referrals: Kady Wade MD [Primary Care Provider, Family Practice]
[2025-02-04] MEDS: EPINEPHrine HCL INJ 1 MG/ML AMPUL 0.3 MG IM (17:10)
[2025-02-04 17:26] VITALS: BP 131/78; PULSE 67; RESP 20; O2SAT 97
[2025-02-04] MEDS: LORATADINE 10 MG TABLET PO (17:59)
[2025-02-04 18:12] VITALS: PULSE 66; RESP 18; O2SAT 100
[2025-02-04 19:16] VITALS: BP 120/76; PULSE 76; RESP 18; O2SAT 97
[2025-02-04 19:22] VITALS: BP 120/76; PULSE 76; RESP 18; O2SAT 97
--- OUTSIDE RECORDS SUMMARY | 2025-02-05 02:28 | XMS_ITS | Clinical Summary ---
Author Organization [facility] Address [address] [place] [address] Care Team Providers Care Commercial Real Estate Underwriter Name Role Phone Stephenie Jackson MD Primary Care Provider Un available Allergies Active Allergy Reactions Criticality Noted Date Comments Bee Venom Anaphylaxis High 09/18/2012 Codeine Itching 09/15/2004 Morphine Itching 09/15/2004 Tetracycline Diarrhea,Nausea and Vomiting 09/15 Medications EPINEPHrine 0.3 MG/0.3ML injection EpiPen 2-Ravinder 0.3 MG/0.3ML SOAJ As [id number] - -Jun-2015Ac tive 07/01/2015 Active omeprazole 40 [...] ? left renal colic Other chronic pancreatitis 12/23/2013 Overview (03/23/2018): occasional discomfort Immunizations Immunization Administration [...] Date Last Done Comments Cervical Cancer Screening Pap Smear (Age 30 to 64) Every 3 Years 1960 Colorectal Cancer Screening Colonoscopy (10 Years) 1960 Hepatitis C 01/01/1980 Cervical Cancer Screening Pap with HPV Testing (Age 30 to 64) Every 5 Years 01/01/1992 Cervical Cancer Screening with HPV 01/01/1992 Pneumococcal Vaccine: 50+ Years (1 of 1 - PCV) 01/01/2012 Zoster Vaccines (1 of 2) 01/01/2012 Annual Physical 04/26/2019 04/26/2018 Mammogram Screening 03/30/2020 03/30/2018 DTaP, Tdap and Td Vaccines (2 - Td or Tdap) 06/29/2021 06/30/2011, 09/16/2002 COVID-19 Vaccine (1 - season) 2024 Influenza Adult (#1) 2024 01/07/2015, 01/23/2013, 12/20/2011, Additional history exists RSV Immunization or 60+ Years (1 - 1-dose 75+ series) 2036 Hepatitis A Vaccines Aged Out 09/27/2002, 06/02/19 00 No longer eligible based on patient's age to complete this topic Meningococcal B Vaccine Aged Out No l onger eligible based on patient's age to complete this topic Meningococcal Vaccine Aged Out No gamal orion eligible based on patient's age to complete this topic RSV Immunizations Under 20 Months Aged Out No longer eligible based on [...] Recently Relevant to Health Maintenance Insurance [employer] Care Teams Commercial Real Estate Underwriter Relationship Specialty Start Date End Date Stephenie Jackson MD PCP - General INTERNAL MEDICINE 05/18/20
--- OUTSIDE RECORDS SUMMARY | 2025-02-05 02:28 | XMS_ITS | Encounter Summary ---
Author Organization [facility] Address On license of [facility] [place] [address] Care Team Providers Care Deputy Court Clerk Name Role Phone Stephenie Jackson MD Primary Care Provider Un available Stephenie Jackson MD Primary Care Provider Un available Encounter Details Date Type Department Care Team (Late st Contact Info) Description 11/02/2001 Abstract [facility] Conversion , Arthur ConversionMD Social History [...] documented as of this encounter Care Teams Deputy Court Clerk Relationship Specialty Start Date End Date Stephenie Jackson MD PCP - General INTERNAL MEDICINE 03/23/18 04/14/20 Stephenie Jackson MD PCP - General INTERNAL MEDICINE 05/18/20 documented as of this encounter
--- OUTSIDE RECORDS SUMMARY | 2025-02-05 02:28 | XMS_ITS | Encounter Summary ---
Author Organization [facility] Address [address] [place] [address] Care Team Providers Care Customer Support Technician Name Role Phone Stephenie Jackson MD Primary Care Provider Un available Stephenie Jackson MD Primary Care Provider Un available Encounter Details Date Type Department Care Team (Late st Contact Info) Description 02/02/2016 Abstract [facility] Conversion Lawrence Dobbs MD Social History [...] CST 02-02-2016 Georgina Marin [address] [place] [address] : 1960 Radiology CAT Scan Abdomen/Pelvis with IV Contrast> Routine Chronic Pancreatitis K86.1 Personal history of urinary (tract) infections Z87.440 Normal [x] Stat [] ER MAGAZINE GRINDER documented in this encounter Plan of Treatment Not on file documented as of this encounter Visit Diagnoses Not on filedocumented in this encounter Additional Health Concerns Infection Onset Date Last Indicated Resolved Time COVID-19 Rule Out 11/19/2019 11/19/2019 11/21/2019 2:30 AM CDT documented as of this encounter Care Teams Customer Support Technician Relationship Specialty Start Date End Date Stephenie Jackson MD PCP - General INTERNAL MEDICINE 03/23/18 04/14/20 Stephenie Jackson MD PCP - General INTERNAL MEDICINE 05/18/20 documented as of this encounter
--- OUTSIDE RECORDS SUMMARY | 2025-02-05 02:28 | XMS_ITS | Clinical Summary ---
Author Organization [facility] Address [address], [address] [address] Phone Care Team Providers Care Frame Builder Name Role Phone Dilia Hahn MD, Lawrence Primary Care Provider +1- [phone] Allergies Active Allergy Reactions Criticality Noted Date [...] (1 of 2) 01/01/2012 Influenza Immunization (#1) 2024 SARS-COV-2 Immunization (1 - 2023- season) 2024 Respiratory Syncytial Virus (RSV) Immunization (Adult) [...] to complete this topic Insurance Care Teams Frame Builder Relationship Specialty Start Date End Date Lawrence Dobbs MD [address] [facility] [address] [place] [address] PCP - General Family Medicine 09/25/17
--- OUTSIDE RECORDS SUMMARY | 2025-02-05 04:21 | XMS_ITS | Clinical Summary ---
Author Organization [facility] Address [address] [place] [address] Care Team Providers Care Metal Flow Coordinator Name Role Phone Stephenie Jackson MD Primary Care Provider Un available Allergies Active Allergy Reactions Criticality Noted Date Comments Bee Venom Anaphylaxis High 09/18/2012 Codeine Itching 09/15/2004 Morphine Itching 09/15/2004 Tetracycline Diarrhea,Nausea and Vomiting 09/15 Medications EPINEPHrine 0.3 MG/0.3ML injection EpiPen 2-Ravinder 0.3 MG/0.3ML SOAJ As [id number] - -Jun-2015Ac tive 07/01/2015 Active omeprazole 40 [...] to Health Maintenance Insurance [employer] Care Teams Metal Flow Coordinator Relationship Specialty Start Date End Date Stephenie Jackson MD PCP - General INTERNAL MEDICINE 05/18/20
--- OUTSIDE RECORDS SUMMARY | 2025-02-05 04:22 | XMS_ITS | Encounter Summary ---
Author Organization [facility] Address [address] [place] [address] Care Team Providers Care Lock Corner Machine Operator Name Role Phone Stephenie Jackson MD Primary Care Provider Un available Stephenie Jackson MD Primary Care Provider Un available Encounter Details Date Type Department Care Team (Late st Contact Info) Description 02/02/2016 Abstract [facility] Conversion Lawrence Dobbs MD Social History [...] CST 02-02-2016 Georgina Marin [address] [place] [address] : 1960 Radiology CAT Scan Abdomen/Pelvis with IV Contrast> Routine Chronic Pancreatitis K86.1 Personal history of urinary (tract) infections Z87.440 Normal [x] Stat [] HOP documented in this encounter Plan of Treatment Not on file documented as of this encounter Visit Diagnoses Not on filedocumented in this encounter Additional Health Concerns Infection Onset Date Last Indicated Resolved Time COVID-19 Rule Out 11/19/2019 11/19/2019 11/21/2019 2:30 AM CDT documented as of this encounter Care Teams Lock Corner Machine Operator Relationship Specialty Start Date End Date Stephenie Jackson MD PCP - General INTERNAL MEDICINE 03/23/18 04/14/20 Stephenie Jackson MD PCP - General INTERNAL MEDICINE 05/18/20 documented as of this encounter
--- OUTSIDE RECORDS SUMMARY | 2025-02-05 04:22 | XMS_ITS | Clinical Summary ---
Author Organization [facility] Address [address], [address] [address] Phone Care Team Providers Care Sewer Connector Name Role Phone Dilia Hahn MD, Lawrence Primary Care Provider +1- [phone] Allergies Active Allergy Reactions Criticality Noted Date [...] to complete this topic Insurance Care Teams Sewer Connector Relationship Specialty Start Date End Date Lawrence Dobbs MD [address] [facility] [address] [place] [address] PCP - General Family Medicine 09/25/17
--- OUTSIDE RECORDS SUMMARY | 2025-02-05 04:22 | XMS_ITS | Encounter Summary ---
Author Organization [facility] Address [facility] [place] [address] Care Team Providers Care Manager Requirements Name Role Phone Stephenie Jackson MD Primary Care Provider Un available Stephenie Jackson MD Primary Care Provider Un available Encounter Details Date Type Department Care Team (Late st Contact Info) Description 11/02/2001 Abstract [facility] Conversion , Arthur ConversionMD Social [...] documented as of this encounter Care Teams Manager Requirements Relationship Specialty Start Date End Date Stephenie Jackson MD PCP - General INTERNAL MEDICINE 03/23/18 04/14/20 Stephenie Jackson MD PCP - General INTERNAL MEDICINE 05/18/20 documented as of this encounter
== END 2025-02-04 19:24 | disposition home or self-care (01) ==
PROVIDERS: Emergency Provider Student in an Organized Health Care Education/Training Program; PCP Family Medicine
DX: T78.2XXA Anaphylactic shock, unspecified, initial encounter (principal); K21.9 Gastro-esophageal reflux disease without esophagitis; G25.81 Restless legs syndrome
CPT/HCPCS: 96372; 99283; A9270; J0166

== ENCOUNTER 2025-03-05 17:32 | Outpatient (CLI) | payer OTHER, SELFPAY ==
[2025-03-05 18:04] LABS: Hematocrit 39.5 % (37.0-47.0); Hemoglobin 13.5 g/dL (12.0-15.0); Immature Granulocyte Percent A 0.3 % (0-0.5); Lymphocytes Absolute Auto 2.60 K/mm3 (0.9-3.2); Mean Corpuscular HGB Conc 34.2 g/dl (32-36); Mean Corpuscular Hemoglobin 27.4 pg (26-34); Mean Corpuscular Volume 80.3 fl (80-100); Nucleated Red Blood Cells Absolute Auto 0.000 K/mm3 (0.0-0.012); Nucleated Red Blood Cells Perc 0.0 % (0.0-0.2); Platelet Count Result 259 k/mm3 (150-375); Red Blood Count 4.92 M/mm3 (4.2-5.4); White Blood Count 7.3 K/mm3 (4.5-10.0)
[2025-03-05 18:20] LABS: CRP < 0.5 mg/dL (<1.0)
--- OUTSIDE RECORDS SUMMARY | 2025-03-05 18:50 | XMS_ITS | Clinical Summary ---
Author Organization [facility] Address [address], [address] [address] Phone Care Team Providers Care Jewel Blocker And Sawyer Name Role Phone Dilia Hahn MD, Lawrence Primary Care Provider +1- [phone] Allergies Active Allergy Reactions Criticality Noted Date [...] to complete this topic Insurance Care Teams Jewel Blocker And Sawyer Relationship Specialty Start Date End Date Lawrence Dobbs MD [address] [facility] [address] [place] [address] PCP - General Family Medicine 09/25/17
[2025-03-05 18:53] LABS: Thyroid Stimulating Hormone Reflex 1.010 uIU/mL (0.465-4.68)
[2025-03-05 19:40] LABS: Free T4 Free Thyroxine 1.09 ng/dL (0.78-2.19)
[2025-03-07 18:08] LABS: ANA by IFA Rfx Titer/Pattern Negative (.)
== END 2025-03-05 17:33 | disposition home or self-care (01) ==
PROVIDERS: PCP Family Medicine
DX: R76.89 Other specified abnormal immunological findings in serum (principal); R53.83 Other fatigue
CPT/HCPCS: 36415; 84439; 84443; 85025; 85652; 86038; 86140; 86160; 86376